=== PATIENT | female | born 1970 | race Caucasian/White ===

== ENCOUNTER → 2019-12-20 11:36 | Outpatient (REF) | payer OTHER, SELFPAY | LOC: HO.SL 11:36 | PROVIDERS: Visit Provider Hospitalist | DX: G47.33 Obstructive sleep apnea (adult) (pediatric) (principal) | CPT/HCPCS: 95806 ==

== ENCOUNTER → 2020-01-06 10:00 | Outpatient (BNVA) | payer OTHER, SELFPAY | PROVIDERS: PCP Student in an Organized Health Care Education/Training Program; Visit Provider Hospitalist | DX: Z23 Encounter for immunization (principal); J45.909 Unspecified asthma, uncomplicated; R05 Cough; G47.33 Obstructive sleep apnea (adult) (pediatric); G47.00 Insomnia, unspecified; Z79.51 Long term (current) use of inhaled steroids; Z79.82 Long term (current) use of aspirin; Z79.899 Other long term (current) drug therapy | CPT/HCPCS: 90471; 90686; 99214 ==

== ENCOUNTER → 2020-04-09 10:19 | Outpatient (BNVA) | payer OTHER, SELFPAY | PROVIDERS: PCP Student in an Organized Health Care Education/Training Program; Visit Provider Hospitalist ==

== ENCOUNTER 2020-07-09 09:25 | Outpatient (REF) | payer OTHER, SELFPAY ==
[2020-07-09 11:52] LABS: MANUAL DIFF FLAG NO
[2020-07-09 12:06] LABS: Basophils Percent Auto 0.5 % (0-2); Eosinophils Absolute Auto 0.2 X10*3/uL (0.0-0.4); Eosinophils Percent Auto 4.3 % (0-4); Hematocrit 39.4 % (37-47); Hemoglobin 11.8 g/dl (12.0-16.0); Imm Gran Abs Auto 0.03 X10*3/uL (0.00-0.03); Imm Gran Pct Auto 0.5 % (0.0-0.4); Lymphocytes Percent Auto 36.1 % (20-40); Mean Corpuscular HGB Conc 29.9 g/dl (31.0-35.0); Mean Corpuscular Hemoglobin 23.6 pg (27.0-33.0); Mean Corpuscular Volume 78.6 fL (80-98); Mean Platelet Volume 9.4 fL (9.4-12.3); Monocytes Absolute Auto 0.4 X10*3/uL (0.1-1.2); Monocytes Percent Auto 6.4 % (2-11); Neutrophils Absolute Auto 2.9 X10*3/uL (2.0-8.3); Neutrophils Percent Auto 52.2 % (45-73); Platelet Count 306 X10*3/uL (160-400); Red Blood Count 5.01 X10*6/uL (4.20-5.50); Red Cell Distribution Width 15.2 % (11.0-16.0); White Blood Count 5.6 X10*3/uL (4.8-10.8)
[2020-07-09 12:16] LABS: D Dimer 442 NG/ML
[2020-07-09 12:33] LABS: Anion Gap 12 (12-20); Blood Urea Nitrogen 16 mg/dL (9-16); Calcium 9.7 mg/dL (8.4-10.2); Carbon Dioxide 31 mmol/L (22-29); Chloride 101 mmol/L (96-108); Estimated Glomerular Filt Rate > 60; Glucose Random 85 mg/dL (60-115); Potassium 4.4 mmol/L (3.3-5.1); Sodium 140 mmol/L (135-145)
[2020-07-09 12:39] LABS: Troponin-I High Sensitivity < 3.5 ng/L (<3.5-17.0)
[2020-07-09 13:17] LABS: Erythrocyte Sedimentation Rate 36 MM/HR (0-20)
== END 2020-07-09 09:26 | disposition home or self-care (01) ==
LOC: HO.LAB 09:25
PROVIDERS: PCP Student in an Organized Health Care Education/Training Program; Visit Provider Hospitalist
DX: R07.9 Chest pain, unspecified (principal); R07.81 Pleurodynia; J45.40 Moderate persistent asthma, uncomplicated; R05 Cough; F51.01 Primary insomnia
CPT/HCPCS: 36415; 80048; 84484; 85025; 85379; 85652; 99212

== ENCOUNTER 2020-07-10 15:54 | Outpatient (REF) | payer OTHER, SELFPAY ==
--- NOTE | ~2020-07-10 | CT_ITS ---
EXAMINATION: CT ANGIOGRAM OF THE CHEST WITH AND WITHOUT CONTRAST (CT PULMONARY ANGIOGRAM FOR PE) CLINICAL INFORMATION: Reason for Exam R07.9 - Chest pain, unspecified COMPARISON: Chest x-ray January 2019 TECHNIQUE: Prior to contrast administration, noncontrast localization images were obtained. Subsequently, multidetector volumetric imaging was performed from the thoracic inlet to below the diaphragms following the administration of 71 mL Omnipaque 350 intravenous contrast. No contrast reaction reported Sagittal, coronal, and MIP oblique sagittal reformatted images were obtained on the CT workstation, uploaded to PACS, and reviewed. This CT examination was performed using dose optimization techniques as appropriate, variously including the following: *Automated exposure control *Adjustment of mA and/or kV according to patient size (this includes techniques or standardized protocols for targeted exams where dose is matched to indication/reason for exam; i.e. extremities or head) *Use of iterative reconstruction technique Total exam dose-length product 123 mGy-cm FINDINGS: QUALITY OF STUDY/CONTRAST BOLUS: Satisfactory. PULMONARY ARTERIES: No central or segmental pulmonary emboli. THORACIC AORTA: No aneurysm or dissection. LUNG: There is question of a 3 mm left lower lobe nodule axial image 283 series 6. The lungs are otherwise clear. PLEURA: No pleural effusion or pneumothorax. MEDIASTINUM: The heart is slightly enlarged. There is no pericardial effusion. No evidence of septal bowing or right heart strain. There are no enlarged hilar or mediastinal lymph nodes. There is a esophageal hernia. There are postsurgical changes to the stomach question from gastric sleeve. CHEST WALL/AXILLA: No axillary or internal mammary lymphadenopathy. OSSEOUS STRUCTURES: There are degenerative changes of the spine. No acute or suspicious osseous abnormality. UPPER ABDOMEN: Esophageal hernia or postoperative changes to the stomach/question gastric sleeve. No reflux of contrast into the hepatic veins to suggest elevated right heart pressures. CT/CT angio chest PE protocol IMPRESSION: No evidence of pulmonary embolism. Slightly enlarged heart. Small esophageal hernia and postoperative changes from probable gastric sleeve. VTE: negative
[2020-07-10] MEDS: iohexoL 350 MG/ML 100 ML INFUS..BTL IV (16:25)
== END 2020-07-10 15:55 | disposition home or self-care (01) ==
LOC: HO.CT 15:54
PROVIDERS: Visit Provider Hospitalist
DX: R07.9 Chest pain, unspecified (principal); R07.81 Pleurodynia; R78.89 Finding of other specified substances, not normally found in blood
CPT/HCPCS: 71275; Q9967

== ENCOUNTER → 2020-11-20 10:05 | Outpatient (BNVA) | payer OTHER, SELFPAY | PROVIDERS: Visit Provider Hospitalist | DX: J44.9 Chronic obstructive pulmonary disease, unspecified (principal); K44.9 Diaphragmatic hernia without obstruction or gangrene; M79.89 Other specified soft tissue disorders; R05 Cough | CPT/HCPCS: 99212 ==

== ENCOUNTER → 2021-01-17 09:52 | Outpatient (BNVA) | payer OTHER, SELFPAY | PROVIDERS: Visit Provider Hospitalist | DX: J44.9 Chronic obstructive pulmonary disease, unspecified (principal); G47.33 Obstructive sleep apnea (adult) (pediatric); K44.9 Diaphragmatic hernia without obstruction or gangrene; M79.89 Other specified soft tissue disorders; F51.01 Primary insomnia; I83.90 Asymptomatic varicose veins of unspecified lower extremity | CPT/HCPCS: 90686; 99212 ==

== ENCOUNTER → 2021-03-11 09:09 | Outpatient (REF) | payer OTHER, SELFPAY ==
--- NOTE | ~2021-03-11 | NM_ITS ---
Myocardial perfusion study Indication: Shortness of breath evaluate for myocardial ischemia Technique: The patient was brought in for a Lexiscan perfusion study on 03/11/2021. Patient performed low-level exercise and was injected 0.4 mg of Lexiscan intravenously. Within a minute of injection, 30 mCi of sestamibi was given intravenously. Images were obtained using the SPECT gamma camera interlaced with the gating device. Images were obtained in supine position. Resting perfusion study was performed on 03/12/2021. Patient was administered 30 mCi of sestamibi intravenously at rest. Images were then obtained in supine position. Images obtained with and without CT attenuation. Total DLP 138 mGy-cm. Images were processed with the software and compared side to side in short axis, horizontal long axis and vertical long axis views. Findings: The stress perfusion study showed non attenuated images show normal uptake of radiotracer in all segments of LV myocardium. Attenuation corrected images show mildly reduced uptake in the anterior wall of the LV myocardium.. The gated study shows normal LV systolic function with calculated LVEF of 67%. LV cavity is normal in size. The gated study shows normal systolic wall thickening and contraction of segments. Resting study shows no significant change compared to stress perfusion study. Gating at rest reveals normal systolic wall motion with ejection fraction at greater than 70 %. The findings are consistent with normal myocardial perfusion. NM/NM ange perf SPECT rest & str Impression: 1. Myocardial perfusion imaging study shows normal myocardial perfusion 2. Gated LVEF is 67% 3. Transient ischemic dilatation not present EKG is nondiagnostic for ischemia
--- NOTE | 2021-03-11 09:13 | CA_ITS ---
Acquisition Time: 2021-03-11 09:16:28 Total Exercise Time: 00:02:00 Test Indications: Dyspnea Medications: SEE H Protocol: LEXISCAN Max HR: 122 BPM 72% of Pred: 169 BPM Max BP: 110/078 mmHG Max Work Load: 1.0 METS Pharmacological stress test with Lexiscan injection, while sitting and kicking her legs, without anginal symptoms, with isolated PVC, with normotensive response to injection, with nondiagnostic EKG for ischemia. Nuclear images pending. test reviewed with Dr Bray. Referred By: Sheldon Lao Overread By: FABRICE VALLE
== END ==
LOC: HO.CARD 09:09
PROVIDERS: Visit Provider Physician Assistant Medical
DX: R06.02 Shortness of breath (principal)
CPT/HCPCS: 78452; 93017; A9500; J0280; J2785

== ENCOUNTER 2021-07-19 09:29 | Outpatient (REF) | payer OTHER, SELFPAY ==
--- NOTE | 2021-07-19 13:17 | MHC.AU.ANR ---
Adult Audiological Evaluation Date of Visit: 07/19/21 Negative Stripper Used: Surinamese- By Phone Reason for Appointment: Audiological evaluation to determine if there has been a change in hearing. Ms. Howard has a known bilateral, sensorineural hearing loss. She has previously used hearing aids in both ears, but recently lost them. She would like to pursue new hearing aids. She notes that she's been having difficulty following conversations without her hearing aids. She denies any changes to her medical history since her last visit. Does patient feel they have a hearing loss?: Yes Has hearing been tested previously?: Yes Previous Hearing Test Results: [facility], 07/22/2018- Moderate to moderately-severe/severe sensorineural hearing loss bilaterally. Medical History: Medical History: Not provided Medication List: Not provided Otoscopy: Right Ear: Unremarkable Left Ear: Unremarkable Tympanometry: Tympanometry performed due to: To assess integrity of the middle ear system Right Ear: Normal Middle Ear System (Type A) Left Ear: Normal Middle Ear System (Type A) Hearing Evaluation: Transducer(s) Used: Insert Earphones, Bone Conduction Method: Conventional Audiometry Stimuli Used: Pure Tones Right Ear: Description of Hearing: Moderate to moderately-severe sensorineural hearing loss from 250-8000 Hz. Left Ear: Description of Hearing: Moderate to moderately-severe sensorineural hearing loss from 250-8000 Hz. Speech Recognition Threshold (SRT): Method Used: Monitored Live Voice Stimuli Used: Spondee Words Right Ear: 50 dBHL Left Ear: 55 dBHL Word Discrimination: Method: Recorded Lists Word Lists Used: Lista Bisil?bica (Surinamese) Right Ear: 92% at 80 dBHL Left Ear: 92% at 80 dBHL Comparison: Compared to the most recent evaluation: Hearing is stable. Recommendations: Audiological re-evaluation in one year. Discussed current aid options. She is interested in rechargeable CHERYL style hearing aids. Medical clearance for hearing aid use and prior authorization from her insurance will be requested. Once approved, hearing aids will be ordered. Diagnosis: Primary Diagnosis: H90.3 Bilateral Sensorineural Hearing Loss Services Performed: Services Performed: Comprehensive Audiological Evaluation (CPT 92270) Tympanometry (CPT 59700) Signature: Provider: Tushar Valadez, CCC-A
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
--- NOTE | 2021-07-26 13:20 | MHC.AU.MED ---
Medical Clearance for Hearing Instrumentation Date: 07/26/21 Patient Name: Anahi Howard Date of : 1970 Referring Provider: Keily Lopez MD We have seen your patient on 07/19/21 and have determined that they are a candidate for amplification (See accompanying report). Specifically, they would benefit from: Hearing aid use in both ears There is a statute that addresses Medical Evaluation Requirements prior to fitting a patient with a hearing aid. According to [place] statute [facility] CMR:6.03(1), (a) General. Except as provided in 265 CMR 6.03(1)(b), a hearing impaired itinerant teacher shall not sell a hearing aid unless the prospective user has presented to the hearing impaired itinerant teacher a written statement signed by a licensed physician that states that the patient's hearing loss has been medically evaluated and the patient may be considered a candidate for a hearing aid. The medical evaluation must have taken place within the preceding six months. Please note: Due to the [place] Statute referenced above, we cannot accept a signature other than that of a licensed physician. CONDITIONING YARD SUPERVISOR and PA signatures cannot be accepted. I am in agreement with the above recommendation. There is no medical contraindication for hearing instrumentation. Physician Signature Date Physician Name (Printed)
== END 2021-07-19 09:30 | disposition home or self-care (01) ==
LOC: HO.SH 09:29
PROVIDERS: Visit Provider Internal Medicine
DX: H90.3 Sensorineural hearing loss, bilateral (principal)
CPT/HCPCS: 92557; 92567; 92591

== ENCOUNTER → 2021-08-09 10:12 | Outpatient (BNVA) | payer OTHER, SELFPAY | PROVIDERS: Visit Provider Hospitalist | DX: J44.9 Chronic obstructive pulmonary disease, unspecified (principal); R05.9 Cough, unspecified; K44.9 Diaphragmatic hernia without obstruction or gangrene; M79.89 Other specified soft tissue disorders; I83.90 Asymptomatic varicose veins of unspecified lower extremity; G47.33 Obstructive sleep apnea (adult) (pediatric); F51.01 Primary insomnia | CPT/HCPCS: 99212 ==

== ENCOUNTER → 2021-09-03 09:42 | Outpatient (REF) | payer OTHER, SELFPAY | LOC: HO.SL 09:42 | PROVIDERS: Visit Provider Hospitalist | DX: G47.33 Obstructive sleep apnea (adult) (pediatric) (principal); R06.83 Snoring | CPT/HCPCS: 95806 ==

== ENCOUNTER 2021-10-04 11:53 | Outpatient (REF) | payer OTHER, SELFPAY ==
--- NOTE | 2021-10-09 15:35 | MHC.AU.HFA ---
Hearing Instrument Fitting- Adult- Binaural Date of Visit: 10/04/21 Stencil Maker Used: Vietnamese- In Person Hearing Instruments Dispensed: Right Ear: Electrical Laboratory Technician: Phonak Model: Audeo P70-R Serial Number: [id number] Repair Warranty: 12/09/2024 Loss and Damage Warranty: 12/09/2024 Battery Size: Rechargeable Color: P3- [place]wood Pad Cutter: Size 1 M Type of Dome: Small power Type of Wax Guard: CeruShield Left Ear: Electrical Laboratory Technician: Phonak Model: Audeo P70-R Serial Number: [id number] Repair Warranty: 12/09/2024 Loss and Damage Warranty: 12/09/2024 Battery Size: Rechargeable Color: P3- [place] Pad Cutter: Size 1 M Type of Dome: Small power Type of Wax Guard: CeruShield Summary of Fitting: Feedback craps manager run. Verifit performed and levels adjusted to better reach targets. Patient was pleased with the sound of the hearing aids. Hearing aid care and maintenance were discussed and practiced. Recommendations: Patient is an experienced hearing aid user. Patient will call for hearing aid follow-up if needed. Diagnosis Code(s): Primary Diagnosis: H90.3 Bilateral Sensorineural Hearing Loss Signature: Provider: Tushar Ruiz, ARBEN-A
== END 2021-10-04 11:54 | disposition home or self-care (01) ==
LOC: HO.HAP 11:53
PROVIDERS: PCP Internal Medicine; Visit Provider Internal Medicine
DX: Z46.1 Encounter for fitting and adjustment of hearing aid (principal); H90.3 Sensorineural hearing loss, bilateral
CPT/HCPCS: V5011; V5020; V5160; V5261

== ENCOUNTER 2021-11-15 10:33 | Outpatient (REF) | payer OTHER, SELFPAY ==
[2021-11-15 10:44] LABS: MANUAL DIFF FLAG NO
[2021-11-15 10:58] LABS: Basophils Absolute Auto 0.1 X10*3/uL (0.0-0.2); Basophils Percent Auto 0.5 % (0-2); Eosinophils Absolute Auto 0.5 X10*3/uL (0.0-0.4); Eosinophils Percent Auto 5.1 % (0-4); Hematocrit 39.8 % (37.0-47.0); Hemoglobin 11.9 g/dl (12.0-16.0); Imm Gran Abs Auto 0.15 X10*3/uL (0.00-0.03); Imm Gran Pct Auto 1.6 % (0.0-0.4); Lymphocytes Absolute Auto 3.5 X10*3/uL (1.2-4.9); Lymphocytes Percent Auto 37.2 % (20-40); Mean Corpuscular HGB Conc 29.9 g/dl (31.0-35.0); Mean Corpuscular Hemoglobin 22.5 pg (27.0-33.0); Mean Corpuscular Volume 75.2 fL (80.0-98.0); Monocytes Absolute Auto 0.8 X10*3/uL (0.1-1.2); Monocytes Percent Auto 8.2 % (2-11); Neutrophils Absolute Auto 4.5 x10*3/uL (2.0-8.3); Neutrophils Percent Auto 47.4 % (45-73); Platelet Count 427 X10*3/uL (160-400); Red Blood Count 5.29 X10*6/uL (4.20-5.50); White Blood Count 9.5 X10*3/uL (4.8-10.8)
[2021-11-15 11:28] LABS: Anion Gap 18 (12-20); Blood Urea Nitrogen 10 mg/dL (9-16); Calcium 9.7 mg/dL (8.4-10.2); Carbon Dioxide 28 mmol/L (22-29); Chloride 101 mmol/L (96-108); Estimated Glomerular Filt Rate > 60; Glucose Random 94 mg/dL (60-115); Iron 39 mcg/dL (30-160); Percent Iron Saturation 10 % (15-50); Potassium 4.2 mmol/L (3.3-5.1); Sodium 143 mmol/L (135-145); Total Iron Binding Capacity 402 mcg/dL (228-428); Unsaturated Iron Binding 363 ug/dL
[2021-11-15 11:49] LABS: Erythrocyte Sedimentation Rate 51 MM/HR (0-20)
[2021-11-15 11:50] LABS: Ferritin 104 ng/mL (10-250)
[2021-11-20 21:47] LABS: Immunoglobulin E 149 kU/L (<OR=114)
== END 2021-11-15 10:34 | disposition home or self-care (01) ==
LOC: HO.LAB 10:33
PROVIDERS: Visit Provider Hospitalist
DX: J44.9 Chronic obstructive pulmonary disease, unspecified (principal); R06.00 Dyspnea, unspecified; R05.9 Cough, unspecified; G47.33 Obstructive sleep apnea (adult) (pediatric); K44.9 Diaphragmatic hernia without obstruction or gangrene; I83.90 Asymptomatic varicose veins of unspecified lower extremity; F51.01 Primary insomnia
CPT/HCPCS: 36415; 80048; 82728; 82785; 83540; 85025; 85652; 99212

== ENCOUNTER → 2022-02-18 09:31 | Outpatient (BNVA) | payer OTHER, SELFPAY | PROVIDERS: PCP Internal Medicine; Visit Provider Hospitalist | DX: Z23 Encounter for immunization (principal); R06.00 Dyspnea, unspecified; G47.33 Obstructive sleep apnea (adult) (pediatric); J45.40 Moderate persistent asthma, uncomplicated; R05.9 Cough, unspecified; K44.9 Diaphragmatic hernia without obstruction or gangrene; I83.90 Asymptomatic varicose veins of unspecified lower extremity; F51.01 Primary insomnia | CPT/HCPCS: 90471; 90686; 99212 ==

== ENCOUNTER → 2022-03-06 10:03 | Outpatient (REF) | payer OTHER, SELFPAY | LOC: HO.SL 10:03 | PROVIDERS: Visit Provider Hospitalist | DX: G47.33 Obstructive sleep apnea (adult) (pediatric) (principal) | CPT/HCPCS: 95806 ==

== ENCOUNTER → 2022-05-16 09:45 | Outpatient (BNVA) | payer OTHER, SELFPAY | PROVIDERS: PCP Internal Medicine; Visit Provider Hospitalist | DX: J45.40 Moderate persistent asthma, uncomplicated (principal); J44.9 Chronic obstructive pulmonary disease, unspecified; R05.3 Chronic cough; R06.00 Dyspnea, unspecified; G47.33 Obstructive sleep apnea (adult) (pediatric); F51.01 Primary insomnia; Z23 Encounter for immunization | CPT/HCPCS: 99212 ==

== ENCOUNTER 2022-09-22 13:58 | Outpatient (REF) | payer OTHER, SELFPAY ==
[2022-09-22 15:03] LABS: MANUAL DIFF FLAG NO
[2022-09-22 15:23] LABS: Basophils Percent Auto 0.4 % (0-2); Eosinophils Absolute Auto 0.1 X10*3/uL (0.0-0.4); Eosinophils Percent Auto 1.3 % (0-4); Hematocrit 41.8 % (37.0-47.0); Hemoglobin 12.6 g/dl (12.0-16.0); Imm Gran Abs Auto 0.03 X10*3/uL (0.00-0.03); Imm Gran Pct Auto 0.4 % (0.0-0.4); Lymphocytes Absolute Auto 2.5 X10*3/uL (1.2-4.9); Lymphocytes Percent Auto 33.6 % (20-40); Mean Corpuscular HGB Conc 30.1 g/dl (31.0-35.0); Mean Corpuscular Hemoglobin 23.4 pg (27.0-33.0); Mean Corpuscular Volume 77.6 fL (80.0-98.0); Mean Platelet Volume 9.4 fL (9.4-12.3); Monocytes Absolute Auto 0.4 X10*3/uL (0.1-1.2); Monocytes Percent Auto 5.4 % (2-11); Neutrophils Absolute Auto 4.4 x10*3/uL (2.0-8.3); Neutrophils Percent Auto 58.9 % (45-73); Platelet Count 371 X10*3/uL (160-400); Red Blood Count 5.39 X10*6/uL (4.20-5.50); Red Cell Distribution Width 14.9 % (11.0-16.0); White Blood Count 7.4 X10*3/uL (4.8-10.8)
[2022-09-22 16:00] LABS: Erythrocyte Sedimentation Rate 28 MM/HR (0-20)
[2022-10-03 04:19] LABS: Immunoglobulin E 49 kU/L (<OR=114)
== END 2022-09-22 13:59 | disposition home or self-care (01) ==
LOC: HO.LAB 13:58
PROVIDERS: PCP Internal Medicine; Visit Provider Hospitalist
DX: J45.40 Moderate persistent asthma, uncomplicated (principal); R06.00 Dyspnea, unspecified; G47.33 Obstructive sleep apnea (adult) (pediatric); R05.9 Cough, unspecified; K44.9 Diaphragmatic hernia without obstruction or gangrene; I83.90 Asymptomatic varicose veins of unspecified lower extremity; F51.01 Primary insomnia
CPT/HCPCS: 36415; 82785; 85025; 85652; 86003; 94618; 99212

== ENCOUNTER 2022-09-22 13:58 | Outpatient (AMB) | payer OTHER, SELFPAY ==
[2022-09-22 14:05] VITALS: PULSE 82; O2SAT 98; BMI 34.3
--- NOTE | 2022-09-22 14:05 | MHC.OFFVIS ---
Intake Vital Signs 09/22/22 14:05 Height 5 ft 4 in Weight 200 lb BMI 34.3 Pulse 82 Pulse Source Pulse Oximeter Pulse Oximetry (%) 98 Oxygen Delivery Method Room Air Intake Visit Reasons: Cough Registered Nurse Renal Required: No Allergies alosetron [Lotronex] Allergy (Mild, Verified 09/22/22 14:07) Headache and difficulty breathing Sulfa Drugs Allergy (Mild, Uncoded 09/22/22 14:07) Headache and difficulty breathing HPI HPI Comments History of Present Illness Details The patient is a 52 y/o woman with a history of asthma in addition to obstructive sleep apnea. Her asthma had been stable for several years period, but, more recently started to worsen. She has been having to use her inhalers now regularly and also has been using her short-acting beta agonist between 4 and 6 times a day. The only new exposures that she does have cockroaches in her apartment. She says she has multiple them. Her been trying to get rid of them with sprays. She has been having more wheezing. At this point she does have wheezing on examination and 11/20/2020 the patient is here for a pulmonary follow-up visit. The patient is a 50-year-old woman with a known history of asthma COPD overlap syndrome. Since we last spoke the patient has been having increasing cough. The cough is dry in nature. Moderate severity. She has also noticed increased shortness of breath. She did follow-up with theatre program director and she is scheduled to undergo a stress test. In the meantime she is also healing from a left wrist surgery. He is also still struggling with her dyspnea. I did review her CT scan of the chest that she had back in June 2020 PE protocol. No evidence of any pulmonary emboli and no evidence of any interstitial lung disease or pulmonary nodules. The patient does have a hiatal hernia and does have a history of gastric sleeve or bariatric surgery. 01/17/2021 the patient is here for a pulmonary follow-up visit. She still complains of daytime drowsiness. She feels short of breath. The patient has been using her inhalers as prescribed. She did take the Lasix with good results she did feel better and her breathing was better. Her lower extremity edema has improved. She still complaining of significant pain due to varicose veins. She is going to looking to getting a referral to a specialist for that. The patient also had the overnight oximetry that we reviewed demonstrating no evidence of any hypoxia. However, the patient complains that she was awake the whole night was going up to the bathroom all night therefore was not a proper study. Therefore I will give her a sleep aid and will repeat it there overnight oximetry at some point. 11/15/2021 the patient is here for pulmonary follow-up visit. Since we last spoke she complains of worsening dyspnea on exertion and fatigue. Moderate severity. However, she is recently status post surgery. This was at [facility]. No apparent complications. She has not seen any drainage or bleeding from the site. Her p.o. intake is decreased. She is complaining of shortness breath dyspnea with minimal activity. Therefore will have her get some blood work including a hemoglobin to make sure that she is not anemic view of her recent surgery. In the meantime she continues to have significant daytime drowsiness. Her Middlebury score continues to be elevated . She is struggling without her CPAP. Again, will request a sleep study in order to get reacquainted with CPAP therapy. In the meantime she continues with the current respiratory therapy. 02/18/2022 the patient is here for a pulmonary follow-up visit. She is recovering from surgery. She has had issues with her bladder and recently had a pacemaker for urinary incontinence. Seems to be working as recommended. From now small standpoint she still struggling with her allergies. She has been on her respiratory therapy with good adherence. She still having significant allergies and is taking multiple doses of allergy medications the day. Still with no avail. She feels that allergies a come from her apartment. We did order blood work including a CBC with differential demonstrating significant eosinophilia. Her IgE was also elevated consistent with significant allergies. Based on the fact that she is on maximum respiratory therapy in continues to need rescue medicine and prednisone will go ahead and start her on biologic therapy. I do believe Dupixent will be a good option for her. in addition to that she still continues to suffer from significant daytime drowsiness. Her last sleep study was back in August 2021 and the patient had a hard time sleeping because of pain and therefore not an accurate result. During the study her AHI was low. Patient continues to have significant daytime drowsiness with an elevated Middlebury score of 03/08. Will request an additional study. Will be hard for her to do an in-lab study. Will try to do another home sleep study. 05/16/2022 the patient is here for a pulmonary follow-up visit. She is doing well. She recovered from surgery well. Now she may be going for additional surgeries. The patient did start the Dupixent injections. She is doing that every 2 weeks. He has appear to be very affecting beneficial as her asthma has improved. She continues use her respiratory inhalers. I also encouraged her to continue using her allergy medicine as Dupixent will not be blocking all the allergic pathways. The patient has a still having difficulty with her sleep. She continues to have daytime drowsiness. And she does wake up short of breath. The patient does need to have a sleep study. Although now she is going to have surgery so therefore will hold off until she recovers from her 2nd surgery in order to have another sleep study ordered. Therefore, she will follow-up in 4 months and we can re-evaluate for the possibility of sleep study at that time 09/22/2022 the patient is here for a pulmonary follow-up visit. The patient is no better. She does not feel like Dupixent is helping her. She would like to stop at this time. Will go ahead and request a discontinuation at this time. She does continue to use her respiratory medications. She feels like a lot of her triggers have to do with her current home environment where she is exposed to pests in addition to mold. She was open to get a letter from me regarding her worsening symptoms in view of her environment. I did recommend we do allergy testing to see if she has any of those allergies in the she does then we can provide with objective data about her allergic reactions. The patient also had a sleep study demonstrating no evidence of sleep apnea. She was also not hypoxic with the lowest pulse ox noted to be 90%. She is wondering about oxygen with activity. We did briefly take her for a walking oximetry and the patient maintain a pulse ox of 98%. Explained to the patient that she does not qualify for oxygen. She does describe symptoms of dizziness and vertigo. I did reassure her that her symptoms of dizziness and vertigo and not related to any underlying hypoxia. [facility] Medical History (Updated 09/22/22 @ 23:28 by Kain Gutierres MD) Asthma Asthma-COPD overlap syndrome Chest pain Chronic cough Cough Dyspnea Hiatal hernia Insomnia Limb swelling DEBORAH (obstructive sleep apnea) Pleuritic chest pain Varicose vein of leg Social History (Updated 11/20/20 @ 10:17 by FATOUMATA Vogel) Patient Tobacco Use Status: Never used Tobacco Review of Systems Const Reports body aches, Reports daytime sleepiness, Reports difficulty sleeping, Reports lethargy, Denies night sweats, Reports snoring and Reports weight gain ENT Denies change in voice, Reports vertigo, Reports dizziness, Denies lip swelling, Denies mouth pain, Reports nasal congestion, Reports nasal discharge and Denies tongue swelling Card Reports chest pain, Reports dyspnea and Reports dyspnea on exertion Resp Reports cough, Denies hemoptysis, Denies excessive phlegm production, Reports pain on inspiration, Reports dyspnea, Reports dyspnea on exertion, Reports snoring and Reports wheezing GI Reports as per HPI and Reports abdominal pain Musc Reports abnormal gait, Reports myalgias and Reports arthralgias Neuro Denies Neuro-related abnormal movements, Reports abnormal gait, Reports vertigo and Reports dizziness Psych Denies no additional complaints Michael/Lymph Denies easy bleeding and Denies lymphadenopathy Aller/Immun Denies lip swelling, Denies tongue swelling and Reports wheezing Physical Exam Vital Signs: Last Vital Signs Pulse 82 09/22/22 14:05 Pulse Ox 98 09/22/22 14:05 Oxygen Delivery Method Room Air 09/22/22 14:05 BMI result Body Mass Index 34.3 Const General: alert Neck Neck: Yes normal visual inspection, Yes full ROM and Yes no lymphadenopathy Chest Chest palpation & inspection: normal inspection of the chest Resp Auscultation: diminished lung sounds Cardio Rate: regular rate Rhythm: regular rhythm Heart sounds: S1 normal heart sound present and S2 normal heart sound present GI Inspection: Yes other ( Dressings are clean, dry and intact) Auscultation: normal bowel sounds Skin General skin exam: rashes and/or lesions noted Extrem General: No clubbing, No cyanosis and Yes edema Office Procedures 6 Minute Walk Time:: 14:30 SPO2 % at rest: 99 Pulse at rest: 79 SPO2 % during excercise: 93 Pulse during excercise: 96 SPO2 % after excercise: 100 Pulse after excercise: 80 Distance in yards walked: 75 Lalit Score: 0 Performance Observations:: Patient walked with the use of a cane on flat ground without the use of supplemental O2. [id number] - 6 Minute Walk Assessment & Plan Assessment & Plan (1) Asthma: Code(s): J45.909 - Unspecified asthma, uncomplicated Qualifiers: Asthma complication type: uncomplicated Asthma persistence: persistent Asthma severity: moderate Qualified Code(s): J45.40 - Moderate persistent asthma, uncomplicated (2) Chronic cough: Code(s): R05 - Cough (3) Hiatal hernia: Comment: s/p hernia repair Code(s): K44.9 - Diaphragmatic hernia without obstruction or gangrene (4) Varicose vein of leg: Code(s): I83.90 - Asymptomatic varicose veins of unspecified lower extremity (5) DEBORAH (obstructive sleep apnea): Comment: Still symptomatic. EPWORTH is 03/08. Home PSG w/o DEBORAH Code(s): G47.33 - Obstructive sleep apnea (adult) (pediatric) (6) Insomnia: Code(s): G47.00 - Insomnia, unspecified Qualifiers: Insomnia type: primary Qualified Code(s): F51.01 - Primary insomnia (7) Dyspnea: Code(s): R06.00 - Dyspnea, unspecified Plan Ambien for sleep Continue Dulera two hundred two puffs twice a day Continue Spiriva Continue singular continue anti histanines stop Dupixent (not helpful after 3-4 months) Allergy testing Reflux diet Follow-up in 3 months Orders: Orders Rast Allergen Today J45.909 - Unspecified asthma, uncomplicated Complete Blood Count Auto Diff Today J45.909 - Unspecified asthma, uncomplicated Erythrocyte Sedimentation Rate Today J45.909 - Unspecified asthma, uncomplicated Immunoglobulin E Today J45.909 - Unspecified asthma, uncomplicated AMB 6 minute walk Today J44.9 - Chronic obstructive pulmonary disease, unspecified Coding Level of Care Code Est Pt Level 4 (41864) Diagnoses Asthma J45.40 Asthma complication type: uncomplicated Asthma persistence: persistent Asthma severity: moderate Chronic cough R05 Hiatal hernia K44.9 Varicose vein of leg I83.90 DEBORAH (obstructive sleep apnea) G47.33 Insomnia F51.01 Insomnia type: primary Dyspnea R06.00 CPT Codes Coding ([id number]) Time Spent (min) 19
[2022-09-22 14:46] VITALS: PULSE 79; O2SAT 99
== END 2022-09-22 14:51 | disposition home or self-care (01) ==
PROVIDERS: PCP Internal Medicine; Visit Provider Hospitalist
DX: J45.40 Moderate persistent asthma, uncomplicated (principal); R05.9 Cough, unspecified; K44.9 Diaphragmatic hernia without obstruction or gangrene; I83.90 Asymptomatic varicose veins of unspecified lower extremity; G47.33 Obstructive sleep apnea (adult) (pediatric); F51.01 Primary insomnia; R06.00 Dyspnea, unspecified
CPT/HCPCS: 94618; 99214

== ENCOUNTER 2023-03-18 09:49 | Outpatient (AMB) | payer OTHER, SELFPAY ==
[2023-03-18 10:00] VITALS: PULSE 87; O2SAT 100; BMI 35.7
--- NOTE | 2023-03-18 10:00 | MHC.OFFVIS ---
Intake Vital Signs 03/18/23 10:00 Height 5 ft 4 in Weight 208 lb BMI 35.7 Pulse 87 Pulse Source Pulse Oximeter Pulse Oximetry (%) 100 Oxygen Delivery Method Room Air Intake Visit Reasons: cough Angio Technologist Required: No Allergies alosetron [Lotronex] Allergy (Mild, Verified 03/18/23 10:01) Headache and difficulty breathing Sulfa Drugs Allergy (Mild, Uncoded 03/18/23 10:01) Headache and difficulty breathing HPI HPI Comments History of Present Illness Details The patient is a 52 y/o woman with a history of asthma in addition to obstructive sleep apnea. Her asthma had been stable for several years period, but, more recently started to worsen. She has been having to use her inhalers now regularly and also has been using her short-acting beta agonist between 4 and 6 times a day. The only new exposures that she does have cockroaches in her apartment. She says she has multiple them. Her been trying to get rid of them with sprays. She has been having more wheezing. At this point she does have wheezing on examination and 11/20/2020 the patient is here for a pulmonary follow-up visit. The patient is a 50-year-old woman with a known history of asthma COPD overlap syndrome. Since we last spoke the patient has been having increasing cough. The cough is dry in nature. Moderate severity. She has also noticed increased shortness of breath. She did follow-up with campaign director and she is scheduled to undergo a stress test. In the meantime she is also healing from a left wrist surgery. He is also still struggling with her dyspnea. I did review her CT scan of the chest that she had back in June 2020 PE protocol. No evidence of any pulmonary emboli and no evidence of any interstitial lung disease or pulmonary nodules. The patient does have a hiatal hernia and does have a history of gastric sleeve or bariatric surgery. 09/22/2022 the patient is here for a pulmonary follow-up visit. The patient is no better. She does not feel like Dupixent is helping her. She would like to stop at this time. Will go ahead and request a discontinuation at this time. She does continue to use her respiratory medications. She feels like a lot of her triggers have to do with her current home environment where she is exposed to pests in addition to mold. She was open to get a letter from me regarding her worsening symptoms in view of her environment. I did recommend we do allergy testing to see if she has any of those allergies in the she does then we can provide with objective data about her allergic reactions. The patient also had a sleep study demonstrating no evidence of sleep apnea. She was also not hypoxic with the lowest pulse ox noted to be 90%. She is wondering about oxygen with activity. We did briefly take her for a walking oximetry and the patient maintain a pulse ox of 98%. Explained to the patient that she does not qualify for oxygen. She does describe symptoms of dizziness and vertigo. I did reassure her that her symptoms of dizziness and vertigo and not related to any underlying hypoxia. 03/18/2023 the patient is here for a pulmonary follow-up visit. She was sick a few weeks ago. She still not better. Still complaining of cough shortness of breath. [id number] severity. She did go to the ER but she left after several hours of waiting. She did continue to use her respiratory medicines. Overall she is feeling little better. She still having headaches in the morning. Still feeling daytime drowsiness. Will go ahead and perform an overnight oximetry to assess her nocturnal oxygen. She may benefit from oxygen. She will continue with current respiratory therapy and prescription will be sent to her pharmacy. [facility] Medical History (Updated 03/18/23 @ 10:10 by Kain Gutierres MD) Dyspnea Varicose vein of leg Limb swelling Hiatal hernia Chronic cough Asthma-COPD overlap syndrome Chest pain Pleuritic chest pain Asthma Cough DEBORAH (obstructive sleep apnea) Insomnia Social History (Updated 11/20/20 @ 10:17 by Alessia Hoffman Kelly) Patient Tobacco Use Status: Never used Tobacco Review of Systems Const Reports body aches, Reports daytime sleepiness, Reports difficulty sleeping, Reports headache(s), Reports lethargy, Denies night sweats, Reports snoring and Reports weight gain ENT Denies change in voice, Reports vertigo, Reports dizziness, Reports headache(s), Denies lip swelling, Denies mouth pain, Reports nasal congestion, Reports nasal discharge and Denies tongue swelling Card Reports chest pain, Reports dyspnea and Reports dyspnea on exertion Resp Reports cough, Denies hemoptysis, Denies excessive phlegm production, Reports pain on inspiration, Reports dyspnea, Reports dyspnea on exertion, Reports snoring and Reports wheezing GI Reports as per HPI and Reports abdominal pain Musc Reports abnormal gait, Reports myalgias and Reports arthralgias Neuro Denies Neuro-related abnormal movements, Reports abnormal gait, Reports vertigo, Reports dizziness and Reports headache(s) Psych Denies no additional complaints Michael/Lymph Denies easy bleeding and Denies lymphadenopathy Aller/Immun Denies lip swelling, Denies tongue swelling and Reports wheezing Physical Exam Vital Signs: Last Vital Signs Pulse 87 03/18/23 10:00 Pulse Ox 100 03/18/23 10:00 Oxygen Delivery Method Room Air 03/18/23 10:00 BMI result Body Mass Index 35.7 Const General: alert Neck Neck: Yes normal visual inspection, Yes full ROM and Yes no lymphadenopathy Chest Chest palpation & inspection: normal inspection of the chest Resp Effort & Inspection: normal respiratory effort Auscultation: diminished lung sounds Cardio Rate: regular rate Rhythm: regular rhythm Heart sounds: S1 normal heart sound present and S2 normal heart sound present GI Inspection: Yes other ( Dressings are clean, dry and intact) Auscultation: normal bowel sounds Skin General skin exam: rashes and/or lesions noted Extrem General: No clubbing, No cyanosis and Yes edema Assessment & Plan Assessment & Plan (1) Asthma-COPD overlap syndrome: Code(s): J44.9 - Chronic obstructive pulmonary disease, unspecified (2) Chronic cough: Code(s): R05 - Cough (3) Hiatal hernia: Comment: s/p hernia repair Code(s): K44.9 - Diaphragmatic hernia without obstruction or gangrene (4) Varicose vein of leg: Code(s): I83.90 - Asymptomatic varicose veins of unspecified lower extremity Qualifiers: Laterality: unspecified laterality Varicose vein complication: unspecified Qualified Code(s): I83.90 - Asymptomatic varicose veins of unspecified lower extremity (5) Insomnia: Code(s): G47.00 - Insomnia, unspecified Qualifiers: Insomnia type: primary Qualified Code(s): F51.01 - Primary insomnia (6) Dyspnea: Code(s): R06.00 - Dyspnea, unspecified Qualifiers: Dyspnea type: dyspnea on exertion Qualified Code(s): R06.09 - Other forms of dyspnea Plan Ambien for sleep Continue Dulera two hundred two puffs twice a day Continue Spiriva Continue singular continue anti histanines Reflux diet overnight oximetry Follow-up in 3 months Orders: Orders Overnight Pulse Oximetry Today J44.9 - Chronic obstructive pulmonary disease, unspecified Medications: New doxycycline hyclate 100 mg PO BID 10 days 20 caps 0RF prednisone PO daily; Take 2 tabs daily x 5 days, then 1 tablet daily x 5 days 10 days 15 tabs 0RF Coding Level of Care Code Est Pt Level 4 (18514) Diagnoses Asthma-COPD overlap syndrome J44.9 Chronic cough R05 Hiatal hernia K44.9 Varicose veins of lower extremity, unspecified laterality, unspecified whether complicated I83.90 Laterality: unspecified laterality Varicose vein complication: unspecified Primary insomnia F51.01 Insomnia type: primary Dyspnea on exertion R06.09 Dyspnea type: dyspnea on exertion Time Spent (min) 16
== END 2023-03-18 10:33 | disposition home or self-care (01) ==
PROVIDERS: PCP Internal Medicine; Visit Provider Hospitalist
DX: J44.9 Chronic obstructive pulmonary disease, unspecified (principal); R05.9 Cough, unspecified; K44.9 Diaphragmatic hernia without obstruction or gangrene; I83.90 Asymptomatic varicose veins of unspecified lower extremity; F51.01 Primary insomnia; R06.09 Other forms of dyspnea
CPT/HCPCS: 99214

== ENCOUNTER → 2023-03-18 09:49 | Outpatient (BNVA) | payer OTHER, SELFPAY | PROVIDERS: PCP Internal Medicine; Visit Provider Hospitalist | DX: J44.9 Chronic obstructive pulmonary disease, unspecified (principal); R05.3 Chronic cough; R06.09 Other forms of dyspnea; I83.90 Asymptomatic varicose veins of unspecified lower extremity; F51.01 Primary insomnia; K44.9 Diaphragmatic hernia without obstruction or gangrene | CPT/HCPCS: 99212 ==

== ENCOUNTER 2023-06-17 10:23 | Outpatient (AMB) | payer OTHER, SELFPAY ==
[2023-06-17 10:29] VITALS: PULSE 81; O2SAT 99; BMI 37.4
--- NOTE | 2023-06-17 10:29 | A.OFFVIS_ITS ---
Intake Vital Signs 06/17/23 10:29 Height 5 ft 4 in Weight 218 lb BMI 37.4 Pulse 81 Pulse Source Pulse Oximeter Pulse Oximetry (%) 99 Oxygen Delivery Method Room Air Intake Visit Reasons: Asthma follow-up Fixed Interest Dealer Required: No Allergies alosetron [Lotronex] Allergy (Mild, Verified 06/17/23 10:30) Headache and difficulty breathing Sulfa Drugs Allergy (Mild, Uncoded 06/17/23 10:30) Headache and difficulty breathing HPI HPI Comments History of Present Illness Details The patient is a 52 y/o woman with a history of asthma in addition to obstructive sleep apnea. Her asthma had been stable for several years period, but, more recently started to worsen. She has been having to use her inhalers now regularly and also has been using her short-acting beta agonist between 4 and 6 times a day. The only new exposures that she does have cockroaches in her apartment. She says she has multiple them. Her been trying to get rid of them with sprays. She has been having more wheezing. At this point she does have wheezing on examination and 11/20/2020 the patient is here for a pulmonary follow-up visit. The patient is a 50-year-old woman with a known history of asthma COPD overlap syndrome. Since we last spoke the patient has been having increasing cough. The cough is dry in nature. Moderate severity. She has also noticed increased shortness of breath. She did follow-up with physical biochemist and she is scheduled to undergo a stress test. In the meantime she is also healing from a left wrist surgery. He is also still struggling with her dyspnea. I did review her CT scan of the chest that she had back in June 2020 PE protocol. No evidence of any pulmonary emboli and no evidence of any interstitial lung disease or pulmonary nodules. The patient does have a hiatal hernia and does have a history of gastric sleeve or bariatric surgery. 09/22/2022 the patient is here for a pulmonary follow-up visit. The patient is no better. She does not feel like Dupixent is helping her. She would like to stop at this time. Will go ahead and request a discontinuation at this time. She does continue to use her respiratory medications. She feels like a lot of her triggers have to do with her current home environment where she is exposed to pests in addition to mold. She was open to get a letter from me regarding her worsening symptoms in view of her environment. I did recommend we do allergy testing to see if she has any of those allergies in the she does then we can provide with objective data about her allergic reactions. The patient also had a sleep study demonstrating no evidence of sleep apnea. She was also not hypoxic with the lowest pulse ox noted to be 90%. She is wondering about oxygen with activity. We did briefly take her for a walking oximetry and the patient maintain a pulse ox of 98%. Explained to the patient that she does not qualify for oxygen. She does describe symptoms of dizziness and vertigo. I did reassure her that her symptoms of dizziness and vertigo and not related to any underlying hypoxia. 03/18/2023 the patient is here for a pulmo nary follow-up visit. She was sick a few weeks ago. She still not better. Still complaining of cough shortness of breath. Duye-fm-[id number] severity. She did go to the ER but she left after several hours of waiting. She did continue to use her respiratory medicines. Overall she is feeling little better. She still having headaches in the morning. Still feeling daytime drowsiness. Will go ahead and perform an overnight oximetry to assess her nocturnal oxygen. She may benefit from oxygen. She will continue with current respiratory therapy and prescription will be sent to her pharmacy. 06/17/2023 the patient is here for pulmonary follow-up visit. Overall, the patient is doing well. She is having hard time sleeping though. She had been doing well on the Ambien which has been helpful for her. However she has not been able to get filled. I will send to the pharmacy. She knows to take holidays from the medication. The patient does respond well to the Ambien as it helps her with her sleep hygiene. She did have multiple sleep studies demonstrating no evidence of any sleep apnea which is reassuring. More recently she did have an overnight oximetry demonstrating that she does not require oxygen either. Explained to the patient that these are reassuring findings. The patient also continues to work closely with her bariatric surgeon. She is having some abdominal issues in underlying reflux disease and difficulty swallowing. She will call them to make sure. She understands if the symptoms worsen she could result in worsening respiratory symptoms from pharyngeal or laryngeal penetration and could worsen her respiratory symptoms. Regarding her asthma, she seems to be well-controlled on the Dulera although she needs to make sure she has other medications at the pharmacy. No recent imaging studies to review. [facility] Medical History (Updated 03/18/23 @ 10:10 by Kain Gutierres MD) Dyspnea Varicose vein of leg Limb swelling Hiatal hernia Chronic cough Asthma-COPD overlap syndrome Chest pain Pleuritic chest pain Asthma Cough DEBORAH (obstructive sleep apnea) Insomnia Social History (Updated 11/20/20 @ 10:17 by Alessia Hoffman [facility]) Patient Tobacco Use Status: Never used Tobacco Review of Systems Const Reports body aches, Reports daytime sleepiness, Reports difficulty sleeping, Reports headache(s), Reports lethargy, Denies night sweats and Reports snoring ENT Denies change in voice, Reports vertigo, Reports dizziness, Reports headache(s), Denies lip swelling, Denies mouth pain, Reports nasal congestion, Reports nasal discharge and Denies tongue swelling Card Reports chest pain and Reports dyspnea on exertion Resp Reports cough, Denies hemoptysis, Denies excessive phlegm production, Reports dyspnea on exertion, Reports snoring and Reports wheezing GI Reports as per HPI and Reports abdominal pain Musc Reports abnormal gait, Reports myalgias and Reports arthralgias Neuro Denies Neuro-related abnormal movements, Reports abnormal gait, Reports vertigo, Reports dizziness and Reports headache(s) Psych Denies no additional complaints Michael/Lymph Denies easy bleeding and Denies lymphadenopathy Aller/Immun Denies lip swelling, Denies tongue swelling and Reports wheezing Physical Exam Vital Signs: Last Vital Signs Pulse 81 06/17/23 10:29 Pulse Ox 99 06/17/23 10:29 Oxygen Delivery Method Room Air 06/17/23 10:29 BMI result Body Mass Index 37.4 Const General: alert Neck Neck: Yes normal visual inspection, Yes full ROM and Yes no lymphadenopathy Chest Chest palpation & inspection: normal inspection of the chest Resp Effort & Inspection: normal respiratory effort Auscultation: diminished lung sounds Cardio Rate: regular rate Rhythm: regular rhythm Heart sounds: S1 normal heart sound present and S2 normal heart sound present GI Inspection: Yes other ( Dressings are clean, dry and intact) Auscultation: normal bowel sounds Skin General skin exam: rashes and/or lesions noted Extrem General: No clubbing, No cyanosis and Yes edema Assessment & Plan Assessment & Plan (1) Asthma-COPD overlap syndrome: Code(s): J44.9 - Chronic obstructive pulmonary disease, unspecified (2) Chronic cough: Code(s): R05 - Cough (3) Hiatal hernia: Comment: s/p hernia repair Code(s): K44.9 - Diaphragmatic hernia without obstruction or gangrene (4) Varicose vein of leg: Code(s): I83.90 - Asymptomatic varicose veins of unspecified lower extremity Qualifiers: Laterality: unspecified laterality Varicose vein complication: unspecified Qualified Code(s): I83.90 - Asymptomatic varicose veins of unspecified lower extremity (5) Insomnia: Code(s): G47.00 - Insomnia, unspecified Qualifiers: Insomnia type: primary Qualified Code(s): F51.01 - Primary insomnia (6) Dyspnea: Code(s): R06.00 - Dyspnea, unspecified Qualifiers: Dyspnea type: dyspnea on exertion Qualified Code(s): R06.09 - Other forms of dyspnea Plan Ambien for sleep Continue Dulera two hundred two puffs twice a day Continue Spiriva Continue singular continue anti histanines Reflux diet Follow-up in 6-8 months Medications: New albuterol sulfate 2.5 mg (3 mL) inhalation Q6H 30 days PRN 180 mL 11RF shortness of breath or wheezing Changed From mometasone-formoterol 200-5 mcg/actuation (Dulera) 2 puffs PO BID 13 grams 0RF To mometasone-formoterol 200-5 mcg/actuation (Dulera) 2 puffs PO BID 30 days 13 grams 11RF From albuterol sulfate 90 mcg/actuation (Ventolin HFA) 2 puffs inhalation Q4H 18 grams 0RF for dyspnea To albuterol sulfate 90 mcg/actuation (Ventolin HFA) 2 puffs inhalation Q6H 30 days 18 grams 11RF for dyspnea From zolpidem (Ambien) 10 mg PO BEDTIME PRN 30 tabs 3RF sleep To zolpidem (Ambien) 10 mg PO BEDTIME 30 days 30 tabs 3RF From roflumilast 500 mcg PO DAILY 90 tabs 0RF To roflumilast 500 mcg PO DAILY 90 days 90 tabs 3RF Refilled tiotropium bromide 2.5 mcg/actuation (Spiriva Respimat) 2 puffs inhalation DAILY 30 days 4 grams 11RF famotidine 40 mg PO DAILY 90 tabs 0RF montelukast 10 mg PO DAILY 90 tabs 3RF benzonatate 200 mg PO BID PRN 60 caps 6RF for cough cetirizine 10 mg PO DAILY 30 tabs 11RF Coding Level of Care Code Est Pt Level 4 (98871) Diagnoses Asthma-COPD overlap syndrome J44.9 Chronic cough R05 Hiatal hernia K44.9 Varicose veins of lower extremity, unspecified laterality, unspecified whether complicated I83.90 Laterality: unspecified laterality Varicose vein complication: unspecified Primary insomnia F51.01 Insomnia type: primary Dyspnea on exertion R06.09 Dyspnea type: dyspnea on exertion Time Spent (min) 17
== END 2023-06-17 10:53 | disposition home or self-care (01) ==
PROVIDERS: PCP Internal Medicine; Visit Provider Hospitalist
DX: J44.9 Chronic obstructive pulmonary disease, unspecified (principal); R05.9 Cough, unspecified; K44.9 Diaphragmatic hernia without obstruction or gangrene; I83.90 Asymptomatic varicose veins of unspecified lower extremity; F51.01 Primary insomnia; R06.09 Other forms of dyspnea
CPT/HCPCS: 99214

== ENCOUNTER → 2023-06-17 10:23 | Outpatient (BNVA) | payer OTHER, SELFPAY | PROVIDERS: PCP Internal Medicine; Visit Provider Hospitalist | DX: J44.9 Chronic obstructive pulmonary disease, unspecified (principal); G47.33 Obstructive sleep apnea (adult) (pediatric); K44.9 Diaphragmatic hernia without obstruction or gangrene; I83.90 Asymptomatic varicose veins of unspecified lower extremity; F51.01 Primary insomnia; R06.09 Other forms of dyspnea; Z79.899 Other long term (current) drug therapy | CPT/HCPCS: 99212 ==

== ENCOUNTER 2023-12-18 10:34 | Outpatient (AMB) | payer OTHER, SELFPAY ==
[2023-12-18 10:39] VITALS: BP 134/70; PULSE 84; O2SAT 100; BMI 36.2
--- NOTE | 2023-12-18 10:39 | MHC.OFFVIS ---
Vital Signs 12/18/23 10:39 Height 5 ft 4 in Weight 211 lb BMI 36.2 BP 134/70 Blood Pressure Location Lt brachial Position Sitting Pulse 84 Pulse Source Pulse Oximeter Pulse Oximetry (%) 100 Oxygen Delivery Method Room Air Intake Visit Reasons: Asthma Supervisor Fleshing Required: No Allergies alosetron [Lotronex] Allergy (Mild, Verified 12/18/23 10:45) Headache and difficulty breathing Sulfa Drugs Allergy (Mild, Uncoded 12/18/23 10:45) Headache and difficulty breathing HPI Comments Details: The patient is a 53 y/o woman with a history of asthma in addition to obstructive sleep apnea. Her asthma had been stable for several years period, but, more recently started to worsen. She has been having to use her inhalers now regularly and also has been using her short-acting beta agonist between 4 and 6 times a day. The only new exposures that she does have cockroaches in her apartment. She says she has multiple them. Her been trying to get rid of them with sprays. She has been having more wheezing. At this point she does have wheezing on examination and 11/20/2020 the patient is here for a pulmonary follow-up visit. The patient is a 50-year-old woman with a known history of asthma COPD overlap syndrome. Since we last spoke the patient has been having increasing cough. The cough is dry in nature. Moderate severity. She has also noticed increased shortness of breath. She did follow-up with occupational safety specialist and she is scheduled to undergo a stress test. In the meantime she is also healing from a left wrist surgery. He is also still struggling with her dyspnea. I did review her CT scan of the chest that she had back in June 2020 PE protocol. No evidence of any pulmonary emboli and no evidence of any interstitial lung disease or pulmonary nodules. The patient does have a hiatal hernia and does have a history of gastric sleeve or bariatric surgery. 09/22/2022 the patient is here for a pulmonary follow-up visit. The patient is no better. She does not feel like Dupixent is helping her. She would like to stop at this time. Will go ahead and request a discontinuation at this time. She does continue to use her respiratory medications. She feels like a lot of her triggers have to do with her current home environment where she is exposed to pests in addition to mold. She was open to get a letter from me regarding her worsening symptoms in view of her environment. I did recommend we do allergy testing to see if she has any of those allergies in the she does then we can provide with objective data about her allergic reactions. The patient also had a sleep study demonstrating no evidence of sleep apnea. She was also not hypoxic with the lowest pulse ox noted to be 90%. She is wondering about oxygen with activity. We did briefly take her for a walking oximetry and the patient maintain a pulse ox of 98%. Explained to the patient that she does not qualify for oxygen. She does describe symptoms of dizziness and vertigo. I did reassure her that her symptoms of dizziness and vertigo and not related to any underlying hypoxia. 03/18/2023 the patient is here for a pulmonary follow-up visit. She was sick a few weeks ago. She still not better. Still complaining of cough shortness of breath. Rdma-ga-kolgqctq severity. She did go to the ER but she left after several hours of waiting. She did continue to use her respiratory medicines. Overall she is feeling little better. She still having headaches in the morning. Still feeling daytime drowsiness. Will go ahead and perform an overnight oximetry to assess her nocturnal oxygen. She may benefit from oxygen. She will continue with current respiratory therapy and prescription will be sent to her pharmacy. 06/17/2023 the patient is here for pulmonary follow-up visit. Overall, the patient is doing well. She is having hard time sleeping though. She had been doing well on the Ambien which has been helpful for her. However she has not been able to get filled. I will send to the pharmacy. She knows to take holidays from the medication. The patient does respond well to the Ambien as it helps her with her sleep hygiene. She did have multiple sleep studies demonstrating no evidence of any sleep apnea which is reassuring. More recently she did have an overnight oximetry demonstrating that she does not require oxygen either. Explained to the patient that these are reassuring findings. The patient also continues to work closely with her bariatric surgeon. She is having some abdominal issues in underlying reflux disease and difficulty swallowing. She will call them to make sure. She understands if the symptoms worsen she could result in worsening respiratory symptoms from pharyngeal or laryngeal penetration and could worsen her respiratory symptoms. Regarding her asthma, she seems to be well-controlled on the Dulera although she needs to make sure she has other medications at the pharmacy. No recent imaging studies to review. 12/18/2023 the patient is here for a pulmonary follow-up visit. Overall the patient is doing well from a respiratory status. Although she does complaint of significant daytime drowsiness. Her [place] score is worse at 14/24. She falls asleep all the time. She also has headaches in the morning. The patient has had multiple home sleep studies without any clear evidence of sleep apnea. Although they appear to be an accurate. She has had a diagnosis of sleep apnea in the past and had a CPAP in the past. I do believe that she is unable to perform proper home sleep studies and she needs to have an in-lab study. She is also having palpitations and will be helpful to have the telemetry component to assess for any cardiac arrhythmias. She is also complaining of significant arthritis symptoms. They have been limiting her activities daily living. I do believe that a rheumatology evaluation will be helpful. The patient continues use her respiratory medicine as prescribed. She will receive the flu shot today. Will plan to order in-lab sleep study and she can follow-up with us specially his abnormal. [facility] Medical History (Updated 12/18/23 @ 10:56 by Kain Gutierres MD) Palpitation Arthritis Allergies Dyspnea Varicose vein of leg Limb swelling Hiatal hernia Chronic cough Asthma-COPD overlap syndrome Chest pain Pleuritic chest pain Asthma Cough DEBORAH (obstructive sleep apnea) Insomnia Social History (Updated 11/20/20 @ 10:17 by Alessia Hoffman Kelly) Patient Tobacco Use Status: Never used Tobacco Review of Systems Const Reports body aches, Reports daytime sleepiness, Reports difficulty sleeping, Reports headache(s), Reports lethargy, Denies night sweats and Reports snoring ENT Denies change in voice, Reports vertigo, Reports dizziness, Reports headache(s), Denies lip swelling, Denies mouth pain, Reports nasal congestion, Reports nasal discharge and Denies tongue swelling Card Reports chest pain and Reports dyspnea on exertion Resp Reports cough, Denies hemoptysis, Denies excessive phlegm production, Reports dyspnea on exertion, Reports snoring and Reports wheezing GI Reports as per HPI and Reports abdominal pain Musc Reports as per HPI, Reports abnormal gait, Reports myalgias and Reports arthralgias Neuro Denies Neuro-related abnormal movements, Reports abnormal gait, Reports vertigo, Reports dizziness and Reports headache(s) Psych Denies no additional complaints Michael/Lymph Denies easy bleeding and Denies lymphadenopathy Aller/Immun Denies lip swelling, Denies tongue swelling and Reports wheezing Physical Exam Vital Signs: Last Vital Signs Pulse 84 12/18/23 10:39 BP 134/70 12/18/23 10:39 Pulse Ox 100 12/18/23 10:39 Oxygen Delivery Method Room Air 12/18/23 10:39 BMI result Body Mass Index 36.2 Const General: alert Neck Neck: Yes normal visual inspection, Yes full ROM and Yes no lymphadenopathy Chest Chest palpation & inspection: normal inspection of the chest Resp Effort & Inspection: normal respiratory effort Auscultation: diminished lung sounds Cardio Rate: regular rate Rhythm: regular rhythm Heart sounds: S1 normal heart sound present and S2 normal heart sound present GI Inspection: Yes other ( Dressings are clean, dry and intact) Auscultation: normal bowel sounds Skin General skin exam: rashes and/or lesions noted Extrem General: No clubbing, No cyanosis and Yes edema Office Procedures Flu Questionnaire Does the patient have a severe egg allergy?: No Does the patient have severe life threatening allergies?: No Does the patient have a fever or illness today?: No Has the patient ever had Guillain-[place] Syndrome?: No Has the patient ever had any past reaction to a flu shot?: No Assessment & Plan Assessment & Plan (1) Asthma: Code(s): J45.909 - Unspecified asthma, uncomplicated Category: Medical Qualifiers: Asthma severity: moderate Asthma persistence: persistent Asthma complication type: uncomplicated Qualified Code(s): J45.40 - Moderate persistent asthma, uncomplicated (2) Chronic cough: Code(s): R05 - Cough Category: Medical (3) Hiatal hernia: Comment: s/p hernia repair Code(s): K44.9 - Diaphragmatic hernia without obstruction or gangrene Category: Medical (4) Insomnia: Code(s): G47.00 - Insomnia, unspecified Category: Medical Qualifiers: Insomnia type: primary Qualified Code(s): F51.01 - Primary insomnia (5) Dyspnea: Code(s): R06.00 - Dyspnea, unspecified Category: Medical Qualifiers: Dyspnea type: dyspnea on exertion Qualified Code(s): R06.09 - Other forms of dyspnea (6) DEBORAH (obstructive sleep apnea): Comment: Still symptomatic. EPWORTH is 03/08. Home PSG w/o DEBORAH Code(s): G47.33 - Obstructive sleep apnea (adult) (pediatric) Category: Medical Plan in lab PSG, AHI 03/08, having palpitations, home PSG have been non diagnostic. Ambien for sleep Continue Dulera two hundred two puffs twice a day Continue Spiriva Continue singular continue anti histanines Reflux diet Follow-up in 8-12 months Orders: Orders RT PSG in-lab sleep study 12/18/23 G47.33 - Obstructive sleep apnea (adult) (pediatric), R00.2 - Palpitations Influenza [id number] Immunization 12/18/23 Z23 - Encounter for immunization Referrals Rheumatology Referral M19.90 - Unspecified osteoarthritis, unspecified site Coding Level of Care Code Est Pt Level 4 (74736) Diagnoses Moderate persistent asthma without complication J45.40 Asthma severity: moderate Asthma persistence: persistent Asthma complication type: uncomplicated Chronic cough R05 Hiatal hernia K44.9 Primary insomnia F51.01 Insomnia type: primary Dyspnea on exertion R06.09 Dyspnea type: dyspnea on exertion DEBORAH (obstructive sleep apnea) G47.33 Time Spent (min) 17
== END 2023-12-18 11:38 | disposition home or self-care (01) ==
PROVIDERS: PCP Internal Medicine; Visit Provider Hospitalist
DX: J45.40 Moderate persistent asthma, uncomplicated (principal); R05.9 Cough, unspecified; K44.9 Diaphragmatic hernia without obstruction or gangrene; F51.01 Primary insomnia; R06.09 Other forms of dyspnea; G47.33 Obstructive sleep apnea (adult) (pediatric)
CPT/HCPCS: 99214

== ENCOUNTER → 2023-12-18 10:34 | Outpatient (BNVA) | payer OTHER, SELFPAY | PROVIDERS: PCP Internal Medicine; Visit Provider Hospitalist | DX: J45.40 Moderate persistent asthma, uncomplicated (principal); G47.33 Obstructive sleep apnea (adult) (pediatric); K44.9 Diaphragmatic hernia without obstruction or gangrene; F51.01 Primary insomnia; R06.09 Other forms of dyspnea; Z79.899 Other long term (current) drug therapy | CPT/HCPCS: 90471; 90656; 99212 ==

== ENCOUNTER → 2024-01-28 19:30 | Outpatient (REF) | payer OTHER, SELFPAY | LOC: HO.SL 19:30 | PROVIDERS: PCP Internal Medicine; Visit Provider Hospitalist | DX: G47.33 Obstructive sleep apnea (adult) (pediatric) (principal); R00.2 Palpitations | CPT/HCPCS: 95810 ==

== ENCOUNTER → 2024-01-28 22:11 | Outpatient (BNV) | payer OTHER, SELFPAY | PROVIDERS: PCP Internal Medicine; Visit Provider Internal Medicine | DX: G47.61 Periodic limb movement disorder (principal) | CPT/HCPCS: 95810 ==

== ENCOUNTER 2024-05-10 11:32 | Outpatient (AMB) | payer OTHER, SELFPAY ==
--- NOTE | 2024-05-10 11:33 | A.OFFVIS_ITS ---
Vital Signs 05/10/24 11:35 Height 5 ft 4 in Weight 215 lb 2.738 oz BMI 36.9 BP 132/86 Blood Pressure Location Lt brachial Position Sitting Pulse 73 Pulse Source Pulse Oximeter Pulse Oximetry (%) 97 Oxygen Delivery Method Room Air Intake Visit Reasons: Arthritis/internal ref Intake Note: New patient internally referred by Dr. Gutierres for Arthritis. Drier Operator Head Required: Yes Drier Operator Head Language: Radio Electronics Technician Services: Drier Operator Head Present Drier Operator Head Name: Becca [id number] Accompanied by: Self / Same As Patient Allergies alosetron [Lotronex] Allergy (Mild, Verified 05/10/24 11:37) Headache and difficulty breathing Sulfa Drugs Allergy (Mild, Uncoded 05/10/24 11:37) Headache and difficulty breathing HPI HPI Arthritis/internal ref: Details: New patient visit. Hungarian speaking patient. 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 Everything hurts. She had imaging of c spine and hands, which showed arthritis. She was referred to PT for neck and hands but reports no benefit. Referral for further management. She has pain in bilateral wrist, MCPS and PIPs for a year. Sometimes she has pain in arms radiating to shoulders. Hands are swollen in the morning 2 hours improved with using a warm cloth. MS all day. She uses oxycodone prescribed by [facility] for lumbar DDD with radiculopathy. Surgey was not recommended because of the risk of being paralysed if she fell. When she walks she has pain radiating down her arms from her neck. She has seen [facility] who has performed MRI c-spine and was told at follow-up that she had arthritis in her neck. She has long standing hx of urinary incontinence. She has completed PT for shoulders 1 year ago. She does not do PT exercises for upper body because it exacerbates her back pain. She walks daily. She falls even with cane or walker. PMX reviewed. Hx asthma/COPD overlap. Hx of palpitations and follows with cardiology, HLD, DM Hx of Lumbar spine surgery 2020 with disectomy without benefit. Hx of bariatric surgery x2 Daughter has RA. She has not worked in the past. Nonsmoker or alcohol use. [facility] Medical History (Updated 05/10/24 @ 12:39 by Kvng Velásquez MD) Palpitation Arthritis Allergies Dyspnea Varicose vein of leg Limb swelling Hiatal hernia Chronic cough Asthma-COPD overlap syndrome Chest pain Pleuritic chest pain Asthma Cough DEBORAH (obstructive sleep apnea) Insomnia Surgical History Hx of hysterectomy History of back surgery History of throat surgery Hx of knee surgery History of carpal tunnel release of both wrists Family History Mother Pacemaker Diabetes Father No problems noted. Social History Patient Tobacco Use Status: Never used Tobacco Review of Systems Const All systems reviewed & are unremarkable except as noted in HPI and below Physical Exam Vital Signs: Last Vital Signs Pulse 73 05/10/24 11:35 BP 132/86 05/10/24 11:35 Pulse Ox 97 05/10/24 11:35 Oxygen Delivery Method Room Air 05/10/24 11:35 BMI result Body Mass Index 36.9 Const Other: General: Comfortable CVS: RRR Respiratory: clear to auscultation bilaterally. Good respiratory effort Skin: No lesions seen MSK: She has limited cervical flexion and extension. Good cervical rotation. She has synovitis right 2nd and 3rd MCP. Tender to palpate left 2nd to 5th MCPs and right 1st MCP. Tender left PIP 2-5. Tender left wrist. Weak technical business analyst bilaterally. Shoulder abduction 110 degrees bilateral. She is able to internally rotate and externally rotate both shoulders. She has pain with shoulder range of motion. She is able to externally rotate bilateral hips but it is limited. Limited knee flexion 60 degrees bilateral. Bilateral MTP tenderness and ankle tenderness. She has soft tissue swelling of bilateral dorsal feet left worse than right. Assessment & Plan Assessment & Plan (1) Inflammatory arthritis: Comment: Examined symptoms are consistent with inflammatory arthritis. I will order labs and x-ray for further evaluation. I will start low-dose prednisone. We discussed importance of monitoring glucose level due to history of diabetes on prednisone. Code(s): M19.90 - Unspecified osteoarthritis, unspecified site Category: Medical Plan: Labs ordered X-rays ordered Start prednisone 7.5 mg daily She is on omeprazole 20 mg daily Return to clinic in 2-4 weeks to discuss results and next steps with DMARD ramandeep albarran (2) Neck pain: Comment: With history of degenerative joint disease contributing to limited range of motion. I am ordering x-rays for further evaluation. I will hold off on PT as she reports upper extremity/neck physical therapy exacerbates lower back pain. Code(s): M54.2 - Cervicalgia Category: Medical Plan: C-spine x-ray ordered to evaluate for new pathology I have requested MRI report from [facility] (3) Frequent falls: Comment: She will benefit from gait training. History of lumbar disc disease status post diskectomy 2019. Code(s): R29.6 - Repeated falls Category: Medical Plan: PT ordered Orders: Orders Alanine Aminotransferase Today M19.90 - Unspecified osteoarthritis, unspecified site T Spot TB Today M19.90 - Unspecified osteoarthritis, unspecified site Rheumatoid Factor Today M19.90 - Unspecified osteoarthritis, unspecified site C Reactive Protein Today Z79.899 - Other skilled nursing (current) drug therapy JAMI Reflex Titer and Pattern Today M19.90 - Unspecified osteoarthritis, unspecified site XR foot LT min 3V Today M19.90 - Unspecified osteoarthritis, unspecified site XR foot RT min 3V Today M19.90 - Unspecified osteoarthritis, unspecified site XR cervical spine 3V Today M54.2 - Cervicalgia Aspartate Amino Transferase Today M19.90 - Unspecified osteoarthritis, unspecified site Cyclic Citrullinated Peptide Today M19.90 - Unspecified osteoarthritis, unspecified site Hepatitis B,C Profile Today M19.90 - Unspecified osteoarthritis, unspecified site Erythrocyte Sedimentation Rate Today Z79.899 - Other skilled nursing (current) drug therapy Complete Blood Count Auto Diff Today M19.90 - Unspecified osteoarthritis, unspecified site Creatinine Today M19.90 - Unspecified osteoarthritis, unspecified site XR hand LT min 3V Today M19.90 - Unspecified osteoarthritis, unspecified site XR hand RT min 3V Today M19.90 - Unspecified osteoarthritis, unspecified site PT Evaluation and Treatment Today R29.6 - Repeated falls Medications: New prednisone Take with food. Hungarian label. 7.5 mg (3 x 2.5 mg) PO DAILY 90 tabs 1RF 30 days Coding Level of Care Code New Pt Level 4 (86524) Diagnoses Inflammatory arthritis M19.90 Neck pain M54.2 Frequent falls R29.6
[2024-05-10 11:35] VITALS: BP 132/86; PULSE 73; O2SAT 97; BMI 36.9
--- OUTSIDE RECORDS SUMMARY | 2024-05-10 14:10 | XMS_ITS | Clinical Summary ---
Author Organization [facility] Address [address] [place] [address] Care Team Providers Care Meteorological Equipment Repairer Name Role Phone Unavailable Primary Care Provider Unavailabl e Source Comments PLEASE NOTE, if this patient is a minor, it may be UNLAWFUL to discuss sensitive information that is contained in these records (such as FAMILY PLANNING, MENTAL HEALTH or SUBSTANCE ABUSE) with the minor patient's parent or other person without the patient's specific authorization.[facility] Social History Tobacco Use Types Packs/Day Years Used Date Smoking Tobacco: Never Assessed Social Connections Answer Date Recorded Connectedness 0 11/30/2023 Financial Resource Strain Answer Date R ecorded Financial Resource Strain 0 2023 Stress Answer Date Recorded Stress 0 10/07/2023 Physical Activity Answer Date Recorded Physical Activity 0 10/07/2023 Food Insecurity Answer Date Recorded Food 0 12/10/2023 Transportation Needs Answer Date Record ed Transportation 0 10/07/2023 Housing Stability Answer Date Recorded Housing 0 10/07/2023 Safety and Environment Answer Date Ha rded Safety 0 10/07/2023 Utilities Answer Date Recorded Utilities 0 10/07/2023 Employment Answer Date Recorded Stress 0 11/30/2023 Comments Unknown Sex and Gender Information Value Date Recorded Sex Assigned at Not on file Legal Sex Female 6:24 AM PDT Gender Identity Not on file Sexual Orientation Not on file Plan of Treatment Health Maintenance Due Date Last Done Comments Dental Perio Charting 1969 Dental Prophy 1969 Diabetes Screening 1969 HPV Screening 1969 Hepatitis C Screening 1969 Lipid Screening 1969 Pap + HPV 1969 Tobacco Screening 1969 HIV Screening 1984 Hypertension Screening (#1) 07/21/1987 Cervical Cancer Screening 1990 Pap Smear 1990 Breast Cancer Screening (Mammogram) 2009 CT Colonography 2014 Colonoscopy 2014 FIT/gFOBT 2014 Flexible Sigmoidoscopy 2014 Imm-Zoster, Recombinant (1 of 2) 07/21/2019 [id number] (1 - 2023- season) 2023 Imm-Influenza (#1) 2023 02/23/2020, 1 , 12/01/2018, Additional history exists Alcohol and Drug Screen 03/16/2024 Depression Annual Screen 03/16/2024 Dental BW 10/08/2024 10/07/2023 Dental Examination 10/08/2024 10/07/2023 Colorectal Cancer Screening 09/21/2026 Fecal DNA 09/21/2026 09/22/2023, 09/22/2023 Dental FMX/Pano 10/08/2028 10/07/2023 Imm-DTaP/Tdap/Td (5 - Td or Tdap) 09/07/2033 09/08/2023, 10/14/2011, 08/07/2010, Additional history exists Imm-Hepatitis B Completed 06/26/2014, 08/14, 07/25/2013 Cervical Ablation/Cold-Knife Conization Discontinued Cervical Cryotherapy Discontinued Colposcopy Discontinued Endometrial Biopsy Discontinued Excision/Leep Discontinued HPV Genotyping Discontinued Vaginal Pap Discontinued Vulvoscopy Discontinued Procedures Procedure Name Priority Date/Time Associated Diagnosis Comments INTRAORAL - COMP SERIES OF RADIOGRAPHIC IMAGES Routine 10/07/2023 1:00 PM EDT Retained tooth root Dental infection Caries COMP ORAL EVALUATION - NEW/ESTABLISHED PATIENT Routine 10/07/2023 1:00 PM EDT Caries from Last 3 Months or Most Recently Relevant to Health Maintenance Insurance [place] MEDICAID DENT[place]
--- OUTSIDE RECORDS SUMMARY | 2024-05-10 14:10 | XMS_ITS | Clinical Summary ---
Author Organization [address] [place] [address] [place] [phone] Phone Care Team Providers Care Automatic Maintainer Name Role Phone Gretchen Butterfield MD Primary Care Provider Allergies Active Allergy Reactions Criticality Noted Date Comments Enoxaparin Headache,Wheezing 08/01/2021 Sulfa (Sulfonamide Antibiotics) Headache,Wheezing 08/01/2021 Medications cholecalciferol (VITAMIN D-3) 50 mcg (2,000 unit) tablet Take 1 tablet (2,000 Units total) by mouth 1 (one) time each day. 4 Active ferrous sulfate 325 mg (65 mg elemental iron) tablet Take 1 Tablet by mouth 3 times daily. 3 Active UNABLE TO FIND Ondansetron 4 MG FILM Take 4 mg by mouth every 8 hours as needed (nausea). 2 Active simethicone (MYLICON) 80 mg chewable tablet Take 1 Tablet by mouth every 6 hours as needed for Flatulence. 2 Active WHEAT DEXTRIN ORAL Take 4 g by mouth daily. 2 Active umeclidinium (Incruse Ellipta) 62.5 mcg/actuation inhalation Inhale 1 puff by mouth 1 (one) time each day. 9 Active medical supply, miscellaneous (MISCELLANEOUS MEDICAL SUPPLY MISC) CPAP Historical (HISTORICAL CPAP) Inhale into the lungs. [employer] Active meclizine (ANTIVERT) 25 mg tablet Take by mouth. Activ e ASPIRIN ORAL Take by mouth. Ac tive atorvastatin (LIPITOR) 40 mg tablet Take 40 mg by mouth daily. Active dilTIAZem CD (CARDIZEM CD) 120 mg 24 hr capsule Take 120 mg by mouth daily. Active ketotifen fumarate (ZADITOR) 0.035 % ophthalmic solution 1 Drop 3 times daily. Active losartan (COZAAR) 25 mg tablet Take 25 mg by mouth daily. Active metFORMIN (GLUCOPHAGE) 850 mg tablet Take 850 mg by mouth 2 times daily (with meals). Active omeprazole (PriLOSEC) [address] capsule Take 40 mg by mouth daily. Active pantoprazole (PROTONIX) 40 mg packet Take by mouth. Activ e oxyCODONE-acetami nophen (PERCOCET) 10-325 mg per tablet Take 1 tablet by mouth every 4 (four) hours. Max Daily Amount: 6 tablets Active cetirizine (ZyrTEC) 10 mg capsule Take by mouth. Activ e Active Problems Problem Noted Date Diagnosed Date Class 1 obesity due to exces s calories with body mass index (BMI) of 33.0 to 33.9 in adult 02/16/2024 Intestinal malabsorption following gastrectomy 0 10/06/2017 Depression 01/16/2017 Diabetes mellitus type 2, uncomplicated 01/17/20 17 Overview (02/16/2024): 05/2017 no medications Hyperlipidemia 01/16/2017 Hypertension 01/16/2017 Migraine 01/16/2017 Dysphagia 12/31/2016 Acid reflux disease 12/31/2016 Asthma 10/30/2016 Obstructive sleep apnea syndrome 10/30/2016 Seasonal allergic rhinitis 10/30/2016 Asthma-chronic obstructive p ulmonary disease overlap syndrome 09/17/2016 Hiatal hernia 09/17/2016 Thoracic back pain 05/22/2016 Surgical History Surgery Date Site/Laterality Comments SECTION PROCEDURE: HISTORICAL DELIVERY BACK SURGERY PROCEDURE: HISTORICAL BACK SURGERY BARIATRIC SURGERY 06/19/2017 PROCEDURE: CO LAPS GSTRC RSTRICTIV PX LONGITUDINAL GASTRECTOMY OTHER SURGICAL HISTORY 06/19/2017 PROCEDURE: CO LAPS RPR PARAESPHGL HRNA INCL FUNDPLSTY W/O MESH HYSTERECTOMY PROCEDURE: HISTORICAL HYSTERECTOMY ANKLE SURGERY Bilateral PROCEDURE: HISTORICAL ANKLE SURGERY; COMMENT: arthroscopy w/debridement of ankle ligament CARPAL TUNNEL RELEASE Bilateral PROCEDURE: HISTORICAL CARPAL TUNNEL REL ELBOW SURGERY Bilateral PROCEDURE: HISTORICAL ELBOW SURGERY; COMMENT: ulnar nerve release Medical History Medical History Date Comments Diabetes mellitus type 2, uncomplicated (CMS/HCC) 01/16/2017 DX:Diabetes mellitus type 2, uncomplicated ([facility]); COMMENT: 05/2017 no medications Hypertension 01/16/2017 DX:Hypertension Depression 01/16/2017 DX:Depression Hyperlipidemia 01/16/2017 DX:Hyperlipidemi a Migraine 01/16/2017 DX:Migraine History of bariatric surgery 12/02/2017 DX: History of bariatric surgery; COMMENT: 06/2017 sleeve Asthma-chronic obstructive p ulmonary disease overlap syndrome (CMS/HCC) 09/17/2016 DX:Asthma-chronic o bstructive pulmonary disease overlap syndrome (HCC) Thoracic back pain 05/22/2016 DX:Thoracic b ack pain Hiatal hernia 09/17/2016 DX:Hiatal hernia Obstructive sleep apnea syndrome 10/30/2016 DX:Obstructive sleep apnea syndrome Seasonal allergic rhinitis 10/30/2016 DX:Se asonal allergic rhinitis Asthma 10/30/2016 DX:Asthma Intestinal malabsorption fol lowing gastrectomy 10/06/2017 DX:Intestinal malabsorption following gastrectomy Covid-19 08/05/2019 DX:COVID-19; COM MENT: waiting on results Social History Tobacco Use Types Packs/Day Years Used Date Smoking Tobacco: Never Smokeless Tobacco: Never Alcohol Use Standard Drinks/Week Comments No 0 (1 standard drink = 0.6 oz pur e alcohol) Comments Unknown Sex and Gender Information Value Date Recorded Sex Assigned at Not on file Legal Sex Female 4:33 AM EST Gender Identity Not on file Sexual Orientation Not on file Obstetrics History Last Filed Vital Signs Vital Sign Reading Time Taken Comments Blood Pressure 100/77 10/30/2022 10:19 AM EDT Pulse 84 10/30/2022 10:19 AM EDT Temperature - - Respiratory Rate - - Oxygen Saturation - - Inhaled Oxygen Concentration - - Weight 95.3 kg (210 lb) 06/04/2023 10:42 AM EDT Height 167.6 cm (5' 6 ) 10/30/2022 10:19 AM EDT Body Mass Index 33.89 10/30/2022 10:19 AM EDT Plan of Treatment Upcoming Encounters Date Type Department Care Team (Late st Contact Info) Description 05/16/2024 4:00 PM EST Office Visit Bariatric Surgery - [address] [place] [phone] Leticia Cerna MD [address] [place] [phone] Health Maintenance Due Date Last Done Comments Breast Cancer Screening 1969 Diabetes: Annual Foot Exam 07/21/1979 Diabetes: Annual Retina Eye Exam 07/21/1979 DTaP,Tdap,and Td Vaccines (1 - Tdap) 1988 Hepatitis B Vaccines (1 of 3 - 19+ 3-dose series) 1988 Pneumococcal Vaccine: 50+ Ye ars (1 of 2 - PCV) 1988 Pneumococcal Vaccine: Pediat rics (0 to 5 Years) and At-Risk Patients (6 to 64 Years) (1 of 2 - PCV) 1988 Cervical Cancer Screening: P ap Smear 1990 Zoster Vaccines (1 of 2) 07/21/2019 Diabetes: Annual GFR (Glomer ular Filtration Rate) 08/14/2021 08/14/2020 Colorectal Cancer Screening: Colonoscopy 02/22/2022 Depression Screening 02/22/2022 HIV Screening 02/22/2022 Hepatitis C Screening 02/22/2022 Social Influencers of Health Screening 02/22/2022 Diabetes: Annual Urine Albumin-Creatinine Ratio (uACR) 02/28/2022 Diabetes: Blood Sugar Contro l Test (HGBA1C) 02/28/2022 08/14/2020 Hypertension/CHF/CAD Annual BMP Blood Test 02/28/2022 08/14/2020 COVID-19 Vaccine ( - 2023-2 5 season) 2023 Influenza Vaccine (#1) 2023 Cholesterol Screening (Lipid Panel) 08/14/2025 08/14/2020 HIB Vaccines Aged Out No longer eligi ble based on patient's age to complete this topic HPV Vaccines Aged Out No longer eligi ble based on patient's age to complete this topic Hepatitis A Vaccines Aged Out No long er eligible based on patient's age to complete this topic IPV Vaccines Aged Out No longer eligi ble based on patient's age to complete this topic MMR Vaccines Aged Out No longer eligi ble based on patient's age to complete this topic Meningococcal ACWY Vaccine Aged Out N o longer eligible based on patient's age to complete this topic Meningococcal B Vacine Aged Out No lo nger eligible based on patient's age to complete this topic RSV Immunization Patients Un reba 20 months Aged Out No longer eligible b ased on patient's age to complete this topic Varicella Vaccines Aged Out No longer eligible based on patient's age to complete this topic Procedures Procedure Name Priority Date/Time Associated Diagnosis Comments ANNUAL BMP BLOOD TEST Routine 08/14/2020 HEMOGLOBIN A1C Routine 08/14/2020 LIPID PANEL Routine 08/14/2020 from Last 3 Months or Most Recently Relevant to Health Maintenance Results * Annual BMP Blood Test (08/14/2020) Annual BMP Blood Test abstracted [facility] Provider MD HEALTH MAINTENANCE Final Result * Hemoglobin A1c (08/14/2020) Hemoglobin A1C 5.9 <=6.5 % Blood Venous blood specimen / Unknown [facility] Provider MD LAB BLOOD ORDERABLES Griselda l Result * (ABNORMAL) Lipid panel (08/14/2020) LDL/HDL Ratio 5(A) 0 - 4 Triglycerides 167(A) 0 - 150 mg/dL Cholesterol 209(A) 0 - 200 mg/dL HDL 45 >=40 mg/dL LDL Cholesterol 131(A) 0 - 100 mg/dL Blood Venous blood specimen / Unknown [facility] Provider LAB BLOOD ORDERABLES Griselda l Result from Last 3 Months or Most Recently Relevant to Health Maintenance Insurance [employer] Care Teams Automatic Maintainer Relationship Specialty Start Date End Date Gretchen Butterfield MD [address] [place] [address] [place] [phone] PCP - General 10/31/19
== END 2024-05-10 12:37 | disposition home or self-care (01) ==
LOC: HO.RHES 11:32
PROVIDERS: PCP Internal Medicine; Visit Provider Internal Medicine Rheumatology
DX: M19.90 Unspecified osteoarthritis, unspecified site (principal); M54.2 Cervicalgia; R29.6 Repeated falls
CPT/HCPCS: 99204

== ENCOUNTER → 2024-05-10 11:32 | Outpatient (BNVA) | payer OTHER, SELFPAY | PROVIDERS: PCP Internal Medicine; Visit Provider Internal Medicine Rheumatology | DX: M19.90 Unspecified osteoarthritis, unspecified site (principal); M54.2 Cervicalgia; R29.6 Repeated falls; Z79.899 Other long term (current) drug therapy | CPT/HCPCS: 99202 ==

== ENCOUNTER 2024-06-10 09:55 | Outpatient (REF) | payer OTHER, SELFPAY ==
--- NOTE | ~2024-06-10 | XR_ITS ---
CLINICAL HISTORY: M19.90 - Unspecified osteoarthritis, unspecified site 3 view left foot Comparison: None Findings: Bones intact. No dislocations. No significant loss of joint space, osteophytes, or erosions. No ankle effusion. There is surgical hardware overlying the distal tibia. IMPRESSION: 1. No acute findings. This document has been electronically signed by: Avinash Martin MD on 06/11/2024 08:35:50
--- NOTE | ~2024-06-10 | XR_ITS ---
CLINICAL HISTORY: M54.2 - Cervicalgia 3 views cervical spine Comparison: None Findings: Normal alignment. No acute fractures or dislocation. There is multiple level degenerative disc change. No prevertebral soft tissue swelling. IMPRESSION: No acute findings. This document has been electronically signed by: Avinash Martin MD on 06/11/2024 08:16:37
--- NOTE | ~2024-06-10 | XR_ITS ---
CLINICAL HISTORY: M19.90 - Unspecified osteoarthritis, unspecified site 3 view right foot Comparison: None Findings: Bones intact. No dislocations. No significant arthritic change or erosions. No ankle effusion. There is surgical hardware overlying the distal tibia.. IMPRESSION: 1. No acute findings. This document has been electronically signed by: Avinash Martin MD on 06/11/2024 08:17:52
--- NOTE | ~2024-06-10 | XR_ITS ---
CLINICAL HISTORY: M19.90 - Unspecified osteoarthritis, unspecified site 3 view bilateral hands Comparison: None Findings: Bones intact. No dislocations. No significant loss of joint space or osteophytes. No erosions. No radiopaque foreign body. IMPRESSION: 1. No acute findings This document has been electronically signed by: Avinash Martin MD on 06/11/2024 08:35:40
[2024-06-10 10:45] LABS: MANUAL DIFF FLAG NO
[2024-06-10 11:22] LABS: Basophils Percent Auto 0.5 % (0-2); Eosinophils Absolute Auto 0.1 X10*3/uL (0.0-0.4); Hematocrit 40.1 % (37.0-47.0); Hemoglobin 12.4 g/dl (12.0-16.0); Imm Gran Abs Auto 0.02 X10*3/uL (0.00-0.03); Imm Gran Pct Auto 0.4 % (0.0-0.4); Lymphocytes Absolute Auto 1.9 X10*3/uL (1.2-4.9); Lymphocytes Percent Auto 34.1 % (20-40); Mean Corpuscular HGB Conc 30.9 g/dl (31.0-35.0); Mean Corpuscular Hemoglobin 22.8 pg (27.0-33.0); Mean Corpuscular Volume 73.7 fL (80.0-98.0); Mean Platelet Volume 9.7 fL (9.4-12.3); Monocytes Absolute Auto 0.4 X10*3/uL (0.1-1.2); Monocytes Percent Auto 6.3 % (2-11); Neutrophils Absolute Auto 3.2 x10*3/uL (2.0-8.3); Neutrophils Percent Auto 56.7 % (45-73); Platelet Count 370 X10*3/uL (160-400); Red Blood Count 5.44 X10*6/uL (4.20-5.50); Red Cell Distribution Width 16.5 % (11.0-16.0); White Blood Count 5.6 X10*3/uL (4.8-10.8)
[2024-06-10 11:53] LABS: Rheumatoid Factor 40.8 IU/mL (<15.0)
[2024-06-10 11:54] LABS: Alanine Aminotransferase 12 U/L (0-31); Aspartate Amino Transferase 20 U/L (5-31); Estimated Glomerular Filt Rate > 60
[2024-06-10 11:55] LABS: Estimated Average Glucose 108 mg/dL; Hemoglobin A1C 113.4002 umol/L; Hemoglobin A1c % 5.4 % (<6.0); Total Hemoglobin (HGBA1C) 3239.4964 umol/L
[2024-06-10 11:58] LABS: Alanine Aminotransferase 11 U/L (0-31); Albumin Level 4.1 g/dL (3.5-5.0); Alkaline Phosphatase 87 U/L (39-117); Amylase 25 U/L (28-100); Anion Gap 10 (12-20); Aspartate Amino Transferase 19 U/L (5-31); Bilirubin Direct 0.2 mg/dL (0.0-0.5); Bilirubin Total 0.5 mg/dL (0.0-1.0); Blood Urea Nitrogen 10 mg/dL (9-16); C Reactive Protein 0.18 mg/dL (< or = 0.50); Calcium 9.4 mg/dL (8.4-10.2); Carbon Dioxide 26 mmol/L (22-29); Chloride 107 mmol/L (96-108); Cholesterol 195 mg/dL (<200); Estimated Glomerular Filt Rate > 60; Glucose Random 90 mg/dL (60-115); HDL Cholesterol 41 mg/dL (>40); LDL Cholesterol Calculated 136 mg/dL (<100); Lipase 13 U/L (8-78); Potassium 3.6 mmol/L (3.3-5.1); Sodium 139 mmol/L (135-145); Total Protein 7.7 g/dL (6.5-8.0); Triglycerides 93 mg/dL (<150)
[2024-06-10 12:08] LABS: Erythrocyte Sedimentation Rate 34 MM/HR (0-20)
[2024-06-10 12:12] LABS: Gamma Glutamyl Transpeptidase 8 U/L (7-33)
[2024-06-10 12:34] LABS: HBS Num1 305.31 mIU/mL (0-7.99); HBc Num1 0.08 S/CO (0.00-0.79); HBsAGNum1 0.32 S/CO (0.00-0.99); Hepatitis B Core Antibody Nonreactive (Nonreactive); Hepatitis B Surface Antigen Negative (Negative); ~HepC Num1 0.25 S/CO (0.00-0.79); ~Hepatitis B Surface Antibody REACTIVE (Nonreactive); ~Hepatitis C Antibody Nonreactive (Nonreactive)
[2024-06-13 19:19] LABS: TS Negative Control Passed; TS Panel A 3; TS Panel B 0; TS Positive Control Passed; TSpotTB Negative (Negative)
[2024-06-15 11:53] LABS: ANA Pattern 2 Nuclear, Homogeneous; ANA Titer 2 1:40 titer; Anti Nuclear Antibody Pattern Nuclear, Speckled; Anti Nuclear Antibody Screen POSITIVE (NEGATIVE)
[2024-06-16 06:53] LABS: Cyclic Citrullinated Peptide <16 UNITS
== END 2024-06-10 09:56 | disposition home or self-care (01) ==
LOC: HO.XRAY 09:55
PROVIDERS: Absent Provider Physician Assistant; PCP Internal Medicine; Visit Provider Internal Medicine Rheumatology
DX: E66.01 Morbid (severe) obesity due to excess calories (principal); M19.90 Unspecified osteoarthritis, unspecified site; M54.2 Cervicalgia; Z79.899 Other long term (current) drug therapy
CPT/HCPCS: 36415; 72040; 73130; 73630; 80048; 80061; 80076; 82150; 82565; 82977; 83036; 83690; 84443; 84450; 84460; 85025; 85652; 86038; 86039; 86140; 86200; 86431; 86481; 86704; 86706; 86803; 87340

== ENCOUNTER → 2024-06-10 10:06 | Outpatient (BNV) | payer OTHER, SELFPAY | PROVIDERS: Absent Provider Physician Assistant; PCP Internal Medicine; Visit Provider Specialist | DX: M54.2 Cervicalgia (principal); M19.041 Primary osteoarthritis, right hand; M19.042 Primary osteoarthritis, left hand; M19.071 Primary osteoarthritis, right ankle and foot; M19.072 Primary osteoarthritis, left ankle and foot | CPT/HCPCS: 72040; 73130; 73630 ==

== ENCOUNTER 2024-06-14 09:20 | Outpatient (AMB) | payer OTHER, SELFPAY ==
--- NOTE | 2024-06-14 10:15 | MHC.OFFVIS ---
Vital Signs 06/14/24 10:16 Height 5 ft 4 in Weight 204 lb 9.423 oz BMI 35.1 BP 126/74 Blood Pressure Location Lt brachial Position Sitting Pulse 77 Pulse Source Pulse Oximeter Pulse Oximetry (%) 100 Oxygen Delivery Method Room Air Intake Visit Reasons: Arthritis Intake Note: Patient presents for follow up on Raynaud's, and both her knees. Patient states she is still in pain. Shipwright Supervisor Required: Yes Shipwright Supervisor Name: Yoan [phone] Allergies alosetron [Lotronex] Allergy (Mild, Verified 06/14/24 10:19) Headache and difficulty breathing Sulfa Drugs Allergy (Mild, Uncoded 06/14/24 10:19) Headache and difficulty breathing HPI HPI Arthritis: Details: interpreter for the deaf use. She did not find any benefit on prednisone 7.5 mg daily. She continues to have swelling in her joints. She is experiencing neck pain with difficulty moving. [facility] Medical History (Updated 06/14/24 @ 12:50 by Kvng Velásquez MD) Palpitation Arthritis Allergies Dyspnea Varicose vein of leg Limb swelling Hiatal hernia Chronic cough Asthma-COPD overlap syndrome Chest pain Pleuritic chest pain Asthma Cough DEBORAH (obstructive sleep apnea) Insomnia Surgical History Hx of hysterectomy History of back surgery History of throat surgery Hx of knee surgery History of carpal tunnel release of both wrists Family History Mother Pacemaker Diabetes Father No problems noted. Social History Patient Tobacco Use Status: Never used Tobacco Review of Systems Const All systems reviewed & are unremarkable except as noted in HPI and below Physical Exam Vital Signs: Last Vital Signs Pulse 77 06/14/24 10:16 BP 126/74 06/14/24 10:16 Pulse Ox 100 06/14/24 10:16 Oxygen Delivery Method Room Air 06/14/24 10:16 BMI result Body Mass Index 35.1 Const Other: General: Comfortable CVS: RRR Respiratory: clear to auscultation bilaterally. Good respiratory effort Skin: No lesions seen MSK: She has synovitis right 2rd, 3rd and 5th MCP and left 2-3rd MCPs. Tender to palpate bilateral MCPs and PIPs. Tender left wrist. Shoulder abduction 120 degrees bilateral. She is able to internally rotate and externally rotate both shoulders. She has pain with shoulder range of motion. She is able to externally rotate bilateral hips but it is limited. Limited knee flexion 60 degrees bilateral. Bilateral ankle tenderness. Assessment & Plan Assessment & Plan (1) Rheumatoid arthritis: Comment: +RF 40.8. Anti CCP antibody results are pending from labs that were recently done 06/10/2024. She has elevation in ESR. Exam is consistent with inflammatory arthritis. It has worsened while she is on low-dose prednisone. We discussed treatment with DMARD therapy methotrexate. Discussed side effects, benefits and drug monitoring. Answered patient's questions to her satisfaction. Code(s): M06.9 - Rheumatoid arthritis, unspecified Category: Medical Plan: Start methotrexate 12.5 mg once weekly. Information in Russian given to patient Start folic acid 1 mg daily Prednisone course prescribed with taper Avoid oral NSAIDs while on prednisone Patient requested Tylenol with codeine. I informed patient that I do not prescribe narcotics. Defer to PCP. Return to clinic in 2 months (2) Cervical spondylosis: Comment: Limited range of motion due to multilevel disc changes on recent x-ray. We discussed diagnosis and management. She has seen [facility] and has failed PT and C-spine cortisone injections per patient. Code(s): M47.812 - Spondylosis without myelopathy or radiculopathy, cervical region Category: Medical Plan: Patient declined PT I inform patient that I do not prescribe narcotics for pain management. Defer decision to PCP. Orders: Orders Complete Blood Count Auto Diff 1 Month Z79.60 - terminal superintendent (current) use of unspecified immunomodulators and immunosuppressants Creatinine 1 Month Z79.60 - terminal superintendent (current) use of unspecified immunomodulators and immunosuppressants Erythrocyte Sedimentation Rate 1 Month M19.90 - Unspecified osteoarthritis, unspecified site C Reactive Protein 1 Month M19.90 - Unspecified osteoarthritis, unspecified site Aspartate Amino Transferase 1 Month Z79.60 - skilled nursing (current) use of unspecified immunomodulators and immunosuppressants Alanine Aminotransferase 1 Month Z79.60 - terminal superintendent (current) use of unspecified immunomodulators and immunosuppressants Medications: New prednisone Take 4 tablets daily 1 week, 3 tablets daily 1 week, 2 tablet daily 1 week, 1 tablet daily 1 week. Take prednisone with food. 5 mg PO DIRECTED 70 tabs 0RF folic acid 1 mg PO DAILY 30 tabs 11RF methotrexate sodium 12.5 mg (5 x 2.5 mg) PO QWEEK 4 weeks 20 tabs 0RF Coding Level of Care Code Est Pt Level 4 (54302) Complex EM visit Add On G2211 Diagnoses Rheumatoid arthritis M06.9 Cervical spondylosis M47.812
[2024-06-14 10:16] VITALS: BP 126/74; PULSE 77; O2SAT 100; BMI 35.1
--- OUTSIDE RECORDS SUMMARY | 2024-06-14 10:27 | XMS_ITS | Continuity of Care Document ---
Author Organization [facility] Address [address] [place] [address]- Care Team Providers Care Senior Network Administrator Name Role Phone Keily Lopez MD Primary Care Physician Encounter [facility] [id number] Date(s): 05/12/24 - 06/11/[address] [id number] Attending Physician: [id number] Admitting Physician: Admtr, Ar8 Referring Physician: Admtr, Ar8 Encounter Type: Triage Allergies, Adverse Reactions, Alerts Substance Criticality Severity Reaction Reaction Severity Status sulfa drugs shortness of br eath headache Active Lovenox shortness of br eath and headache Active Immunizations Given and Recorded Vaccine Date Status Refusal Reason tetanus/diphtheria/pertussis, acel(Tdap) 09/08/23 Given tetanus/diphtheria/pertussis, acel(Tdap) 1 10/14/11 Given tetanus/diphtheria/pertussis, acel(Tdap) 08/07/10 Recorded tetanus/diphtheria/pertussis, acel(Tdap) 03/12/10 Recorded pneumococcal 20-valent conjugate vaccine 09/08/23 Given influenza virus vaccine, inactivated 02/23/20 Give n influenza virus vaccine, inactivated 12/20/18 Give n influenza virus vaccine, inactivated 12/01/18 Ha rded influenza virus vaccine, inactivated 12/30/17 Give n influenza virus vaccine, inactivated 02/24/17 Give n influenza virus vaccine, inactivated 05/21/16 Give n influenza virus vaccine, inactivated 01/23/15 Ha rded influenza virus vaccine, inactivated 12/02/13 Ha rded influenza virus vaccine, inactivated 2 11/05/11 Gi samantha influenza virus vaccine, inactivated 3 05/13/11 Gi samantha influenza virus vaccine, inactivated 12/18/10 Ha rded influenza virus vaccine, inactivated 12/21/09 Ha rded hepatitis B adult vaccine 06/26/14 Recorded hepatitis B adult vaccine 08/25/13 Recorded hepatitis B adult vaccine 07/25/13 Recorded pneumococcal 23-valent vaccine 4 05/13/11 Given pneumococcal 23-valent vaccine 06/24/07 Recorded Measles/Mumps/Rubella Virus Vaccine 11/22/99 Recor ded Measles/Mumps/Rubella Virus Vaccine 03/13/99 Recor ded tetanus-diphtheria toxoids (Td) 01/31/99 Recorded 1Admin Note: vis given 04/08/11 2Admin Note: VIS 09/15/11 3Admin Note: vis given 10/08/2010 4Admin Note: VIS GIVEN 12/19/08 Problem List Condition Confirmation Course Effective Dates Status H ealth Status Informant Anemia Confirmed Active Asthma/COPD overlap syndrome - sees Dr. Bhavik ventura Confirmed Active Controlled substance agreement signed 06/27/2020 - TAKEN OFF CONTRACT DUE TO FENTANYL IN URINE Confirmed Active S/p gastric sleeve 06/2017 with Nehemiah Confirmed Active HTN - Hypertension Confirmed Active Hyperlipidemia Confirmed Active Ovarian mass, left Confirmed Active DEBORAH on CPAP Confirmed Active Rash Confirmed Active Severe obesity (BMI 35.0-39.9) with comorbidity Confirmed Active Synovitis of left ankle Confirmed Active Urinary incontinence Confirmed Active Varicose vein Confirmed Active Social History Social History Type Response Smoking Status Never smoker entered on: 01/25/14 Sex Sex Representation Female (finding) Implantable Device List Procedure Provider Procedure Date Device Type Site Bone Graft Calcaneal Pranav Jackson MD 07/29/21 Unknown Foot Left Device Identifier Serial Number Lot or Batch Number Manufacturing Date Expiration Date Distinct Identification Code MRI Safety Implantable Status Assigning Authority Unknown [id number] Unknown Unknown 02/10/23 Unknown Unknown Active Unk nown Procedure Provider Procedure Date Device Type Site Fusion/Arthrodesis Ankle Pranav Jackson MD 06/04/20 Unk nown Foot Right Device Identifier Serial Number Lot or Batch Number Manufacturing Date Expiration Date Distinct Identification Code MRI Safety Implantable Status Assigning Authority Unknown [id number] Unknown Unknown 09/10/21 Unknown Unknown Active Unkn own Cardiology * Event Display: Non BH Cardiovascular Results Authored Date: * Event Display: Cardiovascular Result Scanned Authored Date: * Event Display: Cardiovascular Result Scanned Authored Date: Laboratory * Event Display: Non BH Lab Results Authored Date: Cardiology Consult note * Event Display: Consult Note Cardiology Authored Date: * Event Display: Consult Note Cardiology Authored Date: * Event Display: Consult Note Cardiology Authored Date: Radiology * Event Display: X-Ray Abdomen, Non- BH Authored Date: * Event Display: X-Ray Chest, Non- BH Authored Date: * Event Display: IR Special Procedures, Non-BH Authored Date: * Event Display: IR Special Procedures Authored Date: * Event Display: Ultrasound Lower Extremity, Non-BH Authored Date: * Event Display: X-Ray Chest, Non- BH Authored Date: * Event Display: MRI Spine, Non- BH Authored Date: * Event Display: MRI Spine, Non- BH Authored Date: * Event Display: X-Ray Shoulder, Non- BH Authored Date: * Event Display: X-Ray Shoulder, Non- BH Authored Date: * Event Display: X-Ray Shoulder, Non- BH Authored Date: * Event Display: MRI Spine, Non- BH Authored Date: * Event Display: MRI Spine, Non- BH Authored Date: US Lower extremity * Event Display: Ultrasound Lower Extremity Authored Date: Patient Care team information Care Team Personnel Name: Julianne Roque RN Position: S RN Member Role: Primary Care Nurse Name: Winsome Martinez Position: [facility] Outreach Member Role: Lifetime Consulting Physician Name: Malachi Riggs RN Position: [facility] RN Member Role: Primary Care Nurse Name: Joy Farrell RN Position: [facility] RN Member Role: Primary Care Nurse Name: Komal Iraheta RN Position: [facility] RN Member Role: Primary Care Nurse Name: Keily Lopez MD Position: [facility] Physician - Primary Care Member Role: PCP Address: [address] [place] [address] Telecom: Care Team Related Persons Name: MARTINEZ Serna [employer]AT[employer]IN [employer] DRIVER Name: LILY KATZ Name: JOSEFINA REHMAN Insurance Providers [facility]or [facility] Information #: 1 Payer: [facility] Member Number: NA Policy Number: NA Group Number: NA
--- OUTSIDE RECORDS SUMMARY | 2024-06-14 10:27 | XMS_ITS | Clinical Summary ---
Author Organization [address] [place] [address] Address [address] [place] [address] Phone Care Team Providers Care Glue Spreading Machine Operator Name Role Phone Gretchen Butterfield MD Primary [...] Hiatal hernia 09/17/2016 Thoracic back pain 05/22/2016 Encounters Date Type Department Care Team Description 05/16/2024 4:00 PM EST Office Visit Bariatric Surgery - [address] [place] [address] Leticia Cerna MD Class 2 severe obesity due to excess calories with serious comorbidity and body mass index (BMI) of 36.0 to 36.9 in adult (CMS/[facility]) (Primary Dx); Postoperative intestinal malabsorption from Last 3 Months Surgical History Surgery Date Site/Laterality Comments SECTION PROCEDURE: HISTORICAL DELIVERY BACK SURGERY PROCEDURE: HISTORICAL BACK SURGERY BARIATRIC SURGERY 06/19/2017 PROCEDURE: MD LAPS GSTRC RSTRICTIV PX LONGITUDINAL GASTRECTOMY OTHER SURGICAL HISTORY 06/19/2017 PROCEDURE: MD LAPS RPR PARAESPHGL HRNA INCL FUNDPLSTY W/O MESH HYSTERECTOMY PROCEDURE: HISTORICAL HYSTERECTOMY ANKLE SURGERY Bilateral PROCEDURE: HISTORICAL ANKLE SURGERY; COMMENT: arthroscopy w/debridement of ankle ligament CARPAL TUNNEL RELEASE Bilateral PROCEDURE: HISTORICAL CARPAL TUNNEL REL ELBOW SURGERY Bilateral PROCEDURE: HISTORICAL ELBOW SURGERY; COMMENT: ulnar nerve release Medical History Medical History Date Comments Diabetes mellitus type 2, uncomplicated 01/16/2017 DX:Diabetes mellitus type 2, uncomplicated (HCC); COMMENT: 05/2017 no medications Hypertension 01/16/2017 DX:Hypertension [...] Sign Reading Time Taken Comments Blood Pressure 141/90 05/16/2024 4:00 PM EST Pulse 69 05/16/2024 4:00 PM EST Temperature - - Respiratory Rate - - Oxygen Saturation - - Inhaled Oxygen Concentration - - Weight 97.4 kg (214 lb 12.8 oz) 05/16/2024 4:00 PM EST Height 162.6 cm (5' 4 ) 05/16/2024 4:00 PM EST Body Mass Index 36.87 05/16/2024 4:00 PM EST Plan of Treatment Upcoming Encounters Date Type Department Care Team (Late st Contact Info) Description 07/14/2024 8:[address] [facility] Xray [address] [place] [phone] 07/14/2024 8:45 AM EDT Office Visit Bariatric Surgery - [place] [address] [facility] [address] [place] [phone] Leticia Cerna MD 175 [facility] [address] [place] [address] Health Maintenance Due Date Last Done Comments Breast Cancer Screening 1969 Diabetes: Annual Foot Exam 07/21/1979 Diabetes: Annual Retina Eye Exam 07/21/1979 Cervical Cancer Screening: Pap Smear 1990 Zoster Vaccines (1 of 2) 07/21/2019 Diabetes: Annual GFR (Glomerular Filtration Rate) 08/14/2021 08/14/2020 Depression Screening 02/22/2022 HIV Screening 02/22/2022 Hepatitis C Screening 02/22/2022 Social Influencers of Health Screening 02/22/2022 Diabetes: Annual Urine Albumin-Creatinine Ratio (uACR) 02/28/2022 Diabetes: Blood Sugar Control Test (HGBA1C) 02/28/2022 08/14/2020 Hypertension/CHF/CAD Annual BMP Blood Test 02/28/2022 08/14/2020 COVID-19 Vaccine ( season) 2023 Cholesterol Screening (Lipid Panel) 08/14/2025 08/14/2020 Colorectal Cancer Screening: FIT-DNA (Cologuard) 09/21/2026 09/22/2023, 09/22/2023 DTaP,Tdap,and Td Vaccines (6 - Td or Tdap) 09/07/2033 09/08/2023, 10/14/2011, 08/07/2010, Additional history exists MMR Vaccines Aged Out 11/22/1999, 03/13/1999 No lo nger eligible based on patient's age to complete this topic Hepatitis B Vaccines Completed 06/26/2014, 08/25/2013, 07/25/2013 Pneumococcal Vaccine: 50+ Years Completed 09/08/2023, 05/13/2011, 06/24/2007 Pneumococcal Vaccine: Pediatrics (0 to 5 Years) and At-Risk Patients (6 to 64 Years) Completed 09/08/2023, 05/13/2011, 06/24/2007 Influenza Vaccine Completed 12/18/2023, , 01/17/2021, Additional history exists HIB Vaccines Aged Out No longer eligi [...] to complete this topic RSV Immunization Patients Under 20 months Aged Out No longer eligible based on [...] Results * Annual BMP Blood Test (08/14/2020) Pathologist [facility] Annual BMP Blood Test abstracted us Historical Provider HEALTH MAINTENANCE Final Result * Hemoglobin A1c (08/14/2020) Pathologist [facility] Hemoglobin A1C 5.9 <=6.5 % Blood Venous blood specimen / Unknown us Historical Provider LAB BLOOD ORDERABLES Griselda l Result * (ABNORMAL) Lipid panel (08/14/2020) LDL/HDL Ratio 5(A) 0 - 4 Triglycerides 167(A) 0 - 150 mg/dL Cholesterol 209(A) 0 - 200 mg/dL HDL 45 >=40 mg/dL LDL Cholesterol 131(A) 0 - 100 mg/dL Blood Venous blood specimen / Unknown us Historical Provider LAB BLOOD ORDERABLES Griselda reza Result from Last 3 Months or Most Recently Relevant to Health Maintenance Insurance [facility] MEDICAID ADVANTAGE [address] [place] [address] Care Teams Glue Spreading Machine Operator Relationship Specialty Start Date End Date Gretchen Butterfield MD [address] [place] [phone] PCP - General 10/31/19
--- OUTSIDE RECORDS SUMMARY | 2024-06-14 10:27 | XMS_ITS | Clinical Summary ---
Author Organization [facility] Address [address] [place] [address] Care Team Providers Care Spinner Frame Name Role Phone Unavailable Primary Care Provider [...] Health Maintenance Due Date Last Done Comments Anxiety Screening 1969 Dental Perio Charting 1969 Dental Prophy 1969 Diabetes Screening 1969 HPV Screening 1969 Hepatitis C Screening 1969 Lipid Screening 1969 Pap + HPV 1969 Tobacco Screening 1969 HIV Screening 1984 Hypertension Screening (#1) 07/21/1987 Cervical Cancer Screening 1990 Pap Smear 1990 Breast Cancer Screening (Mammogram) 2009 CT Colonography 2014 Colonoscopy 2014 Flexible Sigmoidoscopy 2014 Imm-Zoster, Recombinant (1 of 2) 07/21/2019 [id number] ( - 2023- season) 2023 Imm-Influenza (#1) 2023 02/23/2020, 1 , 12/01/2018, Additional history exists Alcohol and Drug Screen 03/16/2024 Depression Annual Screen 03/16/2024 FIT/gFOBT 09/21/2024 09/22/2023 Dental BW 10/08/2024 10/07/2023 Dental Examination 10/08/2024 [...] Most Recently Relevant to Health Maintenance Insurance [place]
--- OUTSIDE RECORDS SUMMARY | 2024-06-14 10:27 | XMS_ITS | Continuity of Care Document ---
Author Organization [facility] Address [address] [place] [address]- Care Team Providers Care B2B Sales Representative Name Role Phone Keily Lopez MD Primary Care Physician [phone] [place] [facility] [place] 05/09/24 - 06/11/[address] [address] Attending Physician: Not on Staff, Attending MD Encounter Type: Pre-Outpt Allergies, Adverse Reactions, Alerts Substance Criticality Severity [...] Confirmed Active Asthma/COPD overlap syndrome - sees pulm, Dr. Gutierres Confirmed Active Controlled substance agreement signed 06/27/2020 [...] MRI Safety Implantable Status Assigning Authority Unknown [id number] Unknown Unknown 02/10/23 Unknown Unknown Active Unk nown Procedure Provider Procedure Date Device Type Site Fusion/Arthrodesis Ankle Pranav Jackson MD 06/04/20 Unk nown Foot Right Device Identifier Serial Number Lot or Batch Number Manufacturing Date Expiration Date Distinct Identification Code MRI Safety Implantable Status Assigning Authority Unknown [id number] Unknown Unknown 09/10/21 Unknown Unknown Active Unkn own Patient Care team information Care Team Personnel Name: Julianne Roque RN Position: [facility] RN Member Role: Primary Care Nurse Name: Winsome Martinez Position: [facility] Outreach Member Role: Lifetime Consulting Physician Name: Malachi Riggs RN Position: [facility] RN Member Role: Primary Care Nurse Name: Joy Farrell RN Position: [facility] RN Member Role: Primary Care Nurse Name: Komal Iraheta RN Position: [facility] RN Member Role: Primary Care Nurse Name: Keily Lopez MD Position: [facility] Physician - Primary Care Member Role: PCP Address: [address] [place] [address] Telecom: Care Team Related Persons Name: MARTINEZ Serna WOOD FUEL PELLETIZER Name: LILY KATZ Name: JOSEFINA REHMAN Insurance Providers Guarantor name: ELROY REHMAN Health Plan Information #: 1 Payer: [facility] Member Number: [id number] Policy Number: NA Group Number: [id number] Health Plan Information #: 2 Payer: [facility] Member Number: [id number] Policy Number: NA Group Number: [id number]
== END 2024-06-14 11:25 | disposition home or self-care (01) ==
LOC: HO.RHES 09:21
PROVIDERS: PCP Internal Medicine; Visit Provider Internal Medicine Rheumatology
DX: M06.9 Rheumatoid arthritis, unspecified (principal); M47.812 Spondylosis without myelopathy or radiculopathy, cervical region
CPT/HCPCS: 99214; G2211

== ENCOUNTER → 2024-06-14 09:20 | Outpatient (BNVA) | payer OTHER, SELFPAY | PROVIDERS: PCP Internal Medicine; Visit Provider Internal Medicine Rheumatology | DX: M06.9 Rheumatoid arthritis, unspecified (principal); M47.812 Spondylosis without myelopathy or radiculopathy, cervical region | CPT/HCPCS: 99212 ==

== ENCOUNTER 2024-09-01 08:45 | Outpatient (AMB) | payer OTHER, SELFPAY ==
--- NOTE | 2024-09-01 08:55 | A.OFFVIS_ITS ---
Vital Signs 09/01/24 09:00 Height 5 ft 4 in Weight 186 lb BMI 31.9 BP 115/74 Blood Pressure Location Rt brachial Position Sitting Pulse 85 Pulse Source Pulse Oximeter Pulse Oximetry (%) 98 Oxygen Delivery Method Room Air Intake Visit Reasons: 3 Months Intake Note: Patient presents for three month follow up. Kindergarten Teacher Required: Yes Kindergarten Teacher Language: Rehabilitation Aide Services: Kindergarten Teacher Present Kindergarten Teacher Name: Kamla Jiménez Information Interpreted: non-clinical & clinical Allergies alosetron (Lotronex) Allergy (Mild, Verified 09/01/24 08:59) Headache and difficulty breathing Sulfa Drugs Allergy (Mild, Uncoded 06/14/24 10:19) Headache and difficulty breathing HPI HPI 3 Months: Details: Video electrical contacts adjuster use. [place]ican-speaking patient. She tolerated MTX without side effects. She only took it for 1 month. MS 30min to 1 hour SHe has pain in wrists and hands She had benefit with prednisone course PFSH Medical History (Updated 09/01/24 @ 09:41 by Kvng Velásquez MD) Palpitation Arthritis Allergies Dyspnea Varicose vein of leg Limb swelling Hiatal hernia Chronic cough Asthma-COPD overlap syndrome Chest pain Pleuritic chest pain Asthma Cough DEBORAH (obstructive sleep apnea) Insomnia Surgical History Hx of hysterectomy History of back surgery History of throat surgery Hx of knee surgery History of carpal tunnel release of both wrists Family History Mother Pacemaker Diabetes Father No problems noted. Social History Patient Tobacco Use Status: Never used Tobacco Physical Exam Vital Signs: Last Vital Signs Pulse 85 09/01/24 09:00 BP 115/74 09/01/24 09:00 Pulse Ox 98 09/01/24 09:00 Oxygen Delivery Method Room Air 09/01/24 09:00 BMI result Body Mass Index 31.9 Const Other: General: Comfortable CVS: RRR Respiratory: clear to auscultation bilaterally. Good respiratory effort Skin: Hyperpigmented erythematous skin under bilateral breast folds and medial thighs MSK: She has synovitis left 2-3rd MCPs. Tender to palpate left MCPs and PIPs. Tender left wrist and bilateral shoulders. Shoulder abduction 120 degrees bilateral. She is able to internally rotate and externally rotate both shoulders. She is able to externally rotate bilateral hips but it is limited. Limited knee flexion 45 degrees bilateral. Bilateral ankle tenderness. Left MTP synovitis present. Bilateral MTP tenderness. Assessment & Plan Assessment & Plan (1) Rheumatoid arthritis: Comment: Inflammatory arthritis is not controlled. We discussed treatment with another course of prednisone with longer taper. She was only on methotrexate for 1 month and did not have repeat labs. She tolerated methotrexate. We also discussed treatment with methotrexate. It takes 2-3 months for full benefit. She developed fungal rash underneath her breasts and groin region secondary to drug side effect from zepbound. I discussed the importance of contacting PCP for management due to her being on immunosuppressive state and leading to disseminated fungal disease if current infection is not treated. Patient understands risks and importance for treatment. Rheumatology history: Seropositive +RF 40.8. Anti CCP. MTX 08/2024- Code(s): M06.9 - Rheumatoid arthritis, unspecified Category: Medical Qualifiers: Rheumatoid arthritis location: multiple sites Rheumatoid factor presence: with rheumatoid factor Qualified Code(s): M05.79 - Rheumatoid arthritis with rheumatoid factor of multiple sites without organ or systems involvement Plan: Start methotrexate 12.5 mg once weekly. Start folic acid 1 mg daily Prednisone course prescribed with taper Contact PCP for management of fungal rash Avoid oral NSAIDs while on prednisone Return to clinic in 3 months Orders: Orders Complete Blood Count Man Dif 1 Month M19.90 - Unspecified osteoarthritis, unspecified site Aspartate Amino Transferase 1 Month M19.90 - Unspecified osteoarthritis, unspecified site Creatinine 1 Month M19.90 - Unspecified osteoarthritis, unspecified site C Reactive Protein 1 Month M19.90 - Unspecified osteoarthritis, unspecified site Alanine Aminotransferase Today M06.9 - Rheumatoid arthritis, unspecified, M19.90 - Unspecified osteoarthritis, unspecified site Aspartate Amino Transferase Today M06.9 - Rheumatoid arthritis, unspecified, M19.90 - Unspecified osteoarthritis, unspecified site C Reactive Protein Today M06.9 - Rheumatoid arthritis, unspecified, M19.90 - Unspecified osteoarthritis, unspecified site Alanine Aminotransferase 1 Month M19.90 - Unspecified osteoarthritis, unspecified site Erythrocyte Sedimentation Rate 1 Month M19.90 - Unspecified osteoarthritis, unspecified site Complete Blood Count Man Dif Today M06.9 - Rheumatoid arthritis, unspecified, M19.90 - Unspecified osteoarthritis, unspecified site Creatinine Today M06.9 - Rheumatoid arthritis, unspecified, M19.90 - Unspecified osteoarthritis, unspecified site Erythrocyte Sedimentation Rate Today M06.9 - Rheumatoid arthritis, unspecified, M19.90 - Unspecified osteoarthritis, unspecified site Medications: Changed From prednisone Take 4 tablets daily 1 week, 3 tablets daily 1 week, 2 tablet daily 1 week, 1 tablet daily 1 week. Take prednisone with food. 5 mg PO DIRECTED 70 tabs 0RF To prednisone Take 4 tablets daily 2 week, 3 tablets daily 2 week, 2 tablet daily 2 week, 1 tablet daily 2 week. Take prednisone with food. 5 mg PO DIRECTED 140 tabs 0RF Refilled methotrexate sodium 12.5 mg (5 x 2.5 mg) PO QWEEK 20 tabs 0RF 4 weeks Coding Level of Care Code Est Pt Level 4 (16647) Complex EM visit Add On G2211 Diagnoses Rheumatoid arthritis involving multiple sites with positive rheumatoid factor M05.79 Rheumatoid arthritis location: multiple sites Rheumatoid factor presence: with rheumatoid factor
[2024-09-01 09:00] VITALS: BP 115/74; PULSE 85; O2SAT 98; BMI 31.9
--- OUTSIDE RECORDS SUMMARY | 2024-09-01 09:10 | XMS_ITS | Clinical Summary ---
Author Organization [address] [place] [address] Address [address] [place] [address] Phone Care Team Providers Care Chief Of Internal Medicine Name Role Phone Gretchen Butterfield MD Primary [...] 10/06/2017 Depression 01/16/2017 Diabetes mellitus type 2, un complicated ([facility] V24, [facility] V28) 01/16/2017 Overview (02/16/2024): 05/2017 no medications Hyperlipidemia 01/16/2017 Hypertension 01/16/2017 Migraine 01/16/2017 Dysphagia 12/31/2016 Acid reflux disease 12/31/2016 Asthma 10/30/2016 Obstructive sleep apnea syndrome 10/30/2016 Seasonal allergic rhinitis 10/30/2016 Asthma-chronic obstructive p ulmonary disease overlap syndrome ([facility] V24, [facility] V28) 09/17/2016 Hiatal hernia 09/17/2016 Thoracic back pain 05/22/2016 Surgical History Surgery Date Site/Laterality Comments SECTION PROCEDURE: HISTORICAL DELIVERY BACK SURGERY PROCEDURE: HISTORICAL BACK SURGERY BARIATRIC SURGERY 06/19/2017 PROCEDURE: [place] LAPS GSTRC RSTRICTIV PX LONGITUDINAL GASTRECTOMY OTHER SURGICAL HISTORY 06/19/2017 PROCEDURE: [place] LAPS RPR PARAESPHGL HRNA INCL FUNDPLSTY W/O MESH HYSTERECTOMY PROCEDURE: HISTORICAL HYSTERECTOMY ANKLE SURGERY Bilateral PROCEDURE: HISTORICAL ANKLE SURGERY; COMMENT: arthroscopy w/debridement of ankle ligament CARPAL TUNNEL RELEASE Bilateral PROCEDURE: HISTORICAL CARPAL TUNNEL REL ELBOW SURGERY Bilateral PROCEDURE: HISTORICAL ELBOW SURGERY; COMMENT: ulnar nerve release Medical History Medical History Date Comments Diabetes mellitus type 2, uncomplicated ([facility] V24, [facility] V28) 01/16/2017 DX:Diabetes mellitus type 2, uncomplicated ([facility]); COMMENT: 05/2017 no medications Hypertension 01/16/2017 DX:Hypertension Depression 01/16/2017 DX:Depression Hyperlipidemia 01/16/2017 DX:Hyperlipidemi a Migraine 01/16/2017 DX:Migraine History of bariatric surgery 12/02/2017 DX: History of bariatric surgery; COMMENT: 06/2017 sleeve Asthma-chronic obstructive p ulmonary disease overlap syndrome ([facility] V24, [facility] V28) 09/17/2016 DX:Asthma-chronic obstructiv e pulmonary disease overlap syndrome ([facility]) Thoracic back pain 05/22/2016 DX:Thoracic b ack [...] Care Team (Late st Contact Info) Description 09/19/2024 9:00 AM EDT Appointment [facility] Xray [address] [place] [phone] 11/22/2024 9:45 AM EDT Office Visit Bariatric Surgery - [place] 175 [facility] [address] [place] [phone] Leticia Cerna MD 175 [facility] [address] [place] [address] Health Maintenance Due Date Last Done Comments [...] age to complete this topic Meningococcal B Vaccine Aged Out No l onger eligible based on patient's age to complete [...] * Annual BMP Blood Test (08/14/2020) Pathologist [facility] Annual BMP Blood Test abstracted Historical Provider HEALTH MAINTENANCE Final Result * Hemoglobin A1c (08/14/2020) [facility] Hemoglobin A1C 5.9 <=6.5 % Blood Venous blood specimen / Unknown Historical Provider LAB BLOOD ORDERABLES Griselda l Result * (ABNORMAL) Lipid panel (08/14/2020) [facility] LDL/HDL Ratio 5(A) 0 - 4 Triglycerides 167(A) 0 - 150 mg/dL Cholesterol 209(A) 0 - 200 mg/dL HDL 45 >=40 mg/dL LDL Cholesterol 131(A) 0 - 100 mg/dL Blood Venous blood specimen / Unknown us Historical Provider LAB BLOOD ORDERABLES Griselda reza Result from Last 3 Months or Most Recently Relevant to Health Maintenance Insurance [facility] MEDICAID ADVANTAGE Care Teams Chief Of Internal Medicine Relationship Specialty Start Date End Date Gretchen Butterfield MD [address] [place] [id number] PCP - General 10/31/19
== END 2024-09-01 09:38 | disposition home or self-care (01) ==
PROVIDERS: PCP Internal Medicine; Visit Provider Internal Medicine Rheumatology
DX: M05.79 Rheumatoid arthritis with rheumatoid factor of multiple sites without organ or systems involvement (principal)
CPT/HCPCS: 99214; G2211

== ENCOUNTER 2024-09-01 08:45 | Outpatient (REF) | payer OTHER, SELFPAY ==
[2024-09-01 17:40] LABS: Baso%MD 0.6 %; Eos%MD 2.7 %; Hematocrit 39.8 % (37.0-47.0); Hemoglobin 12.2 g/dl (12.0-16.0); IG%MD 0.2 %; Mean Corpuscular HGB Conc 30.7 g/dl (31.0-35.0); Mean Corpuscular Hemoglobin 23.4 pg (27.0-33.0); Mean Corpuscular Volume 76.4 fL (80.0-98.0); Mean Platelet Volume 9.7 fL (9.4-12.3); Mono%MD 5.5 %; Platelet Count 393 X10*3/uL (160-400); Red Blood Count 5.21 X10*6/uL (4.20-5.50); Red Cell Distribution Width 19.4 % (11.0-16.0); White Blood Count 6.6 X10*3/uL (4.8-10.8)
[2024-09-01 17:59] LABS: Alanine Aminotransferase 12 U/L (0-31); Aspartate Amino Transferase 22 U/L (5-31); C Reactive Protein < 0.10 mg/dL (< or = 0.50); Estimated Glomerular Filt Rate > 60
[2024-09-01 18:30] LABS: Erythrocyte Sedimentation Rate 18 MM/HR (0-20)
[2024-09-01 21:44] LABS: Eosinophils Absolute Manual 0.1 X10*3/uL (0.0-0.4); Eosinophils Percent Manual 2 % (0-4); Lymphocytes Absolute Manual 2.4 X10*3/uL (1.2-4.9); Lymphocytes Percent Manual 37 % (20-40); Monocytes Absolute Manual 0.6 X10*3/uL (0.1-1.2); Monocytes Percent Manual 9 % (2-11); Neutrophils Percent Manual 52 % (45-73)
[2024-09-01 21:46] LABS: Band Neutrophils Percent 0 % (3-5); Neutrophils Absolute Manual 3.4 X10*3/uL (2.0-8.3); Platelet Estimate NORMAL (NORMAL); Platelet Morphology Comment NORMAL; RBC Morphology NORMAL
== END 2024-09-01 08:46 | disposition home or self-care (01) ==
LOC: HO.HKASLDS 08:45
PROVIDERS: PCP Internal Medicine; Visit Provider Internal Medicine Rheumatology
DX: M06.9 Rheumatoid arthritis, unspecified (principal); M19.90 Unspecified osteoarthritis, unspecified site; Z79.631 Long term (current) use of antimetabolite agent
CPT/HCPCS: 36415; 82565; 84450; 84460; 85007; 85027; 85652; 86140; 99212

== ENCOUNTER 2024-10-04 09:34 | Outpatient (AMB) | payer OTHER, SELFPAY ==
[2024-10-04 09:47] VITALS: BP 100/68; PULSE 83; O2SAT 100; BMI 31.2
--- NOTE | 2024-10-04 09:47 | MHC.OFFVIS ---
Vital Signs 10/04/24 09:47 Height 5 ft 4 in Weight 181 lb 14.102 oz BMI 31.2 BP 100/68 Blood Pressure Location Lt brachial Position Sitting Pulse 83 Pulse Source Pulse Oximeter Pulse Oximetry (%) 100 Oxygen Delivery Method Room Air Intake Visit Reasons: Asthma Allergies alosetron (Lotronex) Allergy (Mild, Verified 10/04/24 09:59) Headache and difficulty breathing Sulfa Drugs Allergy (Mild, Uncoded 06/14/24 10:19) Headache and difficulty breathing HPI Comments Details: The patient is a 54 y/o woman with a history of asthma in addition to obstructive sleep apnea. Her asthma had been stable for several years period, but, more recently started to worsen. She has been having to use her inhalers now regularly and also has been using her short-acting beta agonist between 4 and 6 times a day. The only new exposures that she does have cockroaches in her apartment. She says she has multiple them. Her been trying to get rid of them with sprays. She has been having more wheezing. At this point she does have wheezing on examination and 11/20/2020 the patient is here for a pulmonary follow-up visit. The patient is a 50-year-old woman with a known history of asthma COPD overlap syndrome. Since we last spoke the patient has been having increasing cough. The cough is dry in nature. Moderate severity. She has also noticed increased shortness of breath. She did follow-up with network account manager and she is scheduled to undergo a stress test. In the meantime she is also healing from a left wrist surgery. He is also still struggling with her dyspnea. I did review her CT scan of the chest that she had back in June 2020 PE protocol. No evidence of any pulmonary emboli and no evidence of any interstitial lung disease or pulmonary nodules. The patient does have a hiatal hernia and does have a history of gastric sleeve or bariatric surgery. 09/22/2022 the patient is here for a pulmonary follow-up visit. The patient is no better. She does not feel like Dupixent is helping her. She would like to stop at this time. Will go ahead and request a discontinuation at this time. She does continue to use her respiratory medications. She feels like a lot of her triggers have to do with her current home environment where she is exposed to pests in addition to mold. She was open to get a letter from me regarding her worsening symptoms in view of her environment. I did recommend we do allergy testing to see if she has any of those allergies in the she does then we can provide with objective data about her allergic reactions. The patient also had a sleep study demonstrating no evidence of sleep apnea. She was also not hypoxic with the lowest pulse ox noted to be 90%. She is wondering about oxygen with activity. We did briefly take her for a walking oximetry and the patient maintain a pulse ox of 98%. Explained to the patient that she does not qualify for oxygen. She does describe symptoms of dizziness and vertigo. I did reassure her that her symptoms of dizziness and vertigo and not related to any underlying hypoxia. 03/18/2023 the patient is here for a pulmonary follow-up visit. She was sick a few weeks ago. She still not better. Still complaining of cough shortness of breath. [id number] severity. She did go to the ER but she left after several hours of waiting. She did continue to use her respiratory medicines. Overall she is feeling little better. She still having headaches in the morning. Still feeling daytime drowsiness. Will go ahead and perform an overnight oximetry to assess her nocturnal oxygen. She may benefit from oxygen. She will continue with current respiratory therapy and prescription will be sent to her pharmacy. 06/17/2023 the patient is here for pulmonary follow-up visit. Overall, the patient is doing well. She is having hard time sleeping though. She had been doing well on the Ambien which has been helpful for her. However she has not been able to get filled. I will send to the pharmacy. She knows to take holidays from the medication. The patient does respond well to the Ambien as it helps her with her sleep hygiene. She did have multiple sleep studies demonstrating no evidence of any sleep apnea which is reassuring. More recently she did have an overnight oximetry demonstrating that she does not require oxygen either. Explained to the patient that these are reassuring findings. The patient also continues to work closely with her bariatric surgeon. She is having some abdominal issues in underlying reflux disease and difficulty swallowing. She will call them to make sure. She understands if the symptoms worsen she could result in worsening respiratory symptoms from pharyngeal or laryngeal penetration and could worsen her respiratory symptoms. Regarding her asthma, she seems to be well-controlled on the Dulera although she needs to make sure she has other medications at the pharmacy. No recent imaging studies to review. 12/18/2023 the patient is here for a pulmonary follow-up visit. Overall the patient is doing well from a respiratory status. Although she does complaint of significant daytime drowsiness. Her [place] score is worse at 14/24. She falls asleep all the time. She also has headaches in the morning. The patient has had multiple home sleep studies without any clear evidence of sleep apnea. Although they appear to be an accurate. She has had a diagnosis of sleep apnea in the past and had a CPAP in the past. I do believe that she is unable to perform proper home sleep studies and she needs to have an in-lab study. She is also having palpitations and will be helpful to have the telemetry component to assess for any cardiac arrhythmias. She is also complaining of significant arthritis symptoms. They have been limiting her activities daily living. I do believe that a rheumatology evaluation will be helpful. The patient continues use her respiratory medicine as prescribed. She will receive the flu shot today. Will plan to order in-lab sleep study and she can follow-up with us specially his abnormal. 10/04/2024 the patient is here for pulmonary follow-up visit. Overall she is doing okay. She still continues have difficulty sleeping. We did review her last sleep study which was reassuring just with fragmented sleep. She needs a sleep aid more than anything. No significant sleep apnea noted. Was a good study otherwise. The patient has been losing significant amount of weight on a GLP 1 inhibitor. Seems to be tolerating well although she feels dizzy at times. We did talk about malnourishment. We did look at her blood work that appeared that she had low protein levels. She will be following up soon with her primary care. In the meantime she can try some meclizine for her vertigo. Respiratory xiong the patient is doing well on the current respiratory regimen. [facility] Medical History (Updated 10/04/24 @ 12:50 by Kain Gutierres MD) Palpitation Arthritis Allergies Dyspnea Varicose vein of leg Limb swelling Hiatal hernia Chronic cough Asthma-COPD overlap syndrome Chest pain Pleuritic chest pain Asthma Cough DEBORAH (obstructive sleep apnea) Insomnia Surgical History Hx of hysterectomy History of back surgery History of throat surgery Hx of knee surgery History of carpal tunnel release of both wrists Family History Mother Pacemaker Diabetes Father No problems noted. Social History Patient Tobacco Use Status: Never used Tobacco Review of Systems Const Reports body aches, Reports daytime sleepiness, Reports difficulty sleeping, Reports headache(s), Reports lethargy, Denies night sweats and Reports snoring ENT Denies change in voice, Reports vertigo, Reports dizziness, Reports headache(s), Denies lip swelling, Denies mouth pain, Reports nasal congestion, Reports nasal discharge and Denies tongue swelling Card Reports chest pain and Reports dyspnea on exertion Resp Reports cough, Denies hemoptysis, Denies excessive phlegm production, Reports dyspnea on exertion, Reports snoring and Reports wheezing GI Reports as per HPI and Reports abdominal pain Musc Reports as per HPI, Reports abnormal gait, Reports myalgias and Reports arthralgias Neuro Denies Neuro-related abnormal movements, Reports abnormal gait, Reports vertigo, Reports dizziness and Reports headache(s) Psych Denies no additional complaints Michael/Lymph Denies easy bleeding and Denies lymphadenopathy Aller/Immun Denies lip swelling, Denies tongue swelling and Reports wheezing Physical Exam Vital Signs: Last Vital Signs Pulse 83 10/04/24 09:47 BP 100/68 10/04/24 09:47 Pulse Ox 100 10/04/24 09:47 Oxygen Delivery Method Room Air 10/04/24 09:47 BMI result Body Mass Index 31.2 Const General: alert Neck Neck: Yes normal visual inspection, Yes full ROM and Yes no lymphadenopathy Chest Chest palpation & inspection: normal inspection of the chest Resp Effort & Inspection: normal respiratory effort Auscultation: diminished lung sounds Cardio Rate: regular rate Rhythm: regular rhythm Heart sounds: S1 normal heart sound present and S2 normal heart sound present GI Inspection: Yes other ( Dressings are clean, dry and intact) Auscultation: normal bowel sounds Skin General skin exam: rashes and/or lesions noted Extrem General: No clubbing, No cyanosis and Yes edema Assessment & Plan Assessment & Plan (1) Asthma: Code(s): J45.909 - Unspecified asthma, uncomplicated Category: Medical Qualifiers: Asthma complication type: uncomplicated Asthma persistence: persistent Asthma severity: moderate Qualified Code(s): J45.40 - Moderate persistent asthma, uncomplicated (2) Chronic cough: Code(s): R05 - Cough Category: Medical (3) Hiatal hernia: Comment: s/p hernia repair Code(s): K44.9 - Diaphragmatic hernia without obstruction or gangrene Category: Medical (4) Insomnia: Code(s): G47.00 - Insomnia, unspecified Category: Medical Qualifiers: Insomnia type: primary Qualified Code(s): F51.01 - Primary insomnia (5) Dyspnea: Code(s): R06.00 - Dyspnea, unspecified Category: Medical Qualifiers: Dyspnea type: dyspnea on exertion Qualified Code(s): R06.09 - Other forms of dyspnea (6) DEBORAH (obstructive sleep apnea): Comment: Still symptomatic. EPWORTH is 03/08. Home PSG w/o DEBORAH Code(s): G47.33 - Obstructive sleep apnea (adult) (pediatric) Category: Medical (7) Rheumatoid arthritis: Code(s): M06.9 - Rheumatoid arthritis, unspecified Category: Medical Qualifiers: Rheumatoid arthritis location: multiple sites Rheumatoid factor presence: with rheumatoid factor Qualified Code(s): M05.79 - Rheumatoid arthritis with rheumatoid factor of multiple sites without organ or systems involvement Plan Stopped Ambien Start Trazodone as needed for sleep Continue Dulera two hundred two puffs twice a day Continue Spiriva Continue singular continue anti histanines Reflux diet Follow-up in 6-8 months Medications: New vit no.[id number] 28 mg iron- 800 mcg (Classic ) 1 tab PO DAILY 30 tabs 6RF trazodone 50 mg PO BEDTIME PRN 30 tabs 11RF sleep 30 days meclizine 25 mg PO DAILY PRN 30 tabs 0RF motion sickness 30 days Discontinued roflumilast Discontinued Reason: Doctor's Order 500 mcg PO DAILY 90 days 90 tabs 3RF Coding Level of Care Code Est Pt Level 4 (00518) Diagnoses Moderate persistent asthma without complication J45.40 Asthma complication type: uncomplicated Asthma persistence: persistent Asthma severity: moderate Chronic cough R05 Hiatal hernia K44.9 Primary insomnia F51.01 Insomnia type: primary Dyspnea on exertion R06.09 Dyspnea type: dyspnea on exertion DEBORAH (obstructive sleep apnea) G47.33 Rheumatoid arthritis involving multiple sites with positive rheumatoid factor M05.79 Rheumatoid arthritis location: multiple sites Rheumatoid factor presence: with rheumatoid factor Time Spent (min) 16
--- OUTSIDE RECORDS SUMMARY | 2024-10-04 10:11 | XMS_ITS | Clinical Summary ---
Author Organization [facility] Address [address] [place] [address] Care Team Providers Care Casing Splitter Name Role Phone Unavailable Primary Care Provider [...] 2014 Imm-Zoster, Recombinant (1 of 2) 07/21/2019 Flf-EXRTH-23 ( - season) 2023 Alcohol and Drug Screen 03/16/2024 Depression Annual Screen 03/16/2024 FIT/gFOBT 09/21/2024 09/22/2023 Dental BW 10/08/2024 10/07/2023 Dental Examination 10/08/2024 10/07/2023 Imm-Influenza (#1) 2024 02/23/2020, 1 , 12/01/2018, Additional history exists Colorectal Cancer Screening 09/21/2026 Fecal DNA 09/21/2026 09/22/2023, 09/22/2023 Dental FMX/Pano 10/08/2028 10/07/2023 Imm-DTaP/Tdap/Td (5 - Td or Tdap) 09/07/2033 09/08/2023, 10/14/2011, 08/07/2010, Additional history exists Imm-Hepatitis B Completed 06/26/2014, 08/14, 07/25/2013 Imm-Pneumococcal 50+ Completed 09/08/2023, 05/13/2011, 06/24/2007 Cervical Ablation/Cold-Knife Conization Discontinued Cervical Cryotherapy Discontinued [...] Most Recently Relevant to Health Maintenance Insurance [place]
--- OUTSIDE RECORDS SUMMARY | 2024-10-04 10:11 | XMS_ITS | Data Portability ---
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 Reassurance provided that the nerve is functioning within a normal range. Her main complaint is shoulder pain. Shoulder evaluation will be arranged. Follow-up in hand pod on an as-needed basis. [email or web address] Not available 08/21/2023 10:07:39 Plan of Treatment Reminders Order Date Submit Date Provider Last Modified By Organization Details Last Modified Time Details Appointments NEW PATIENT 20 2024 10:50A M Julio Miles MD Not available Not available Not available Lab None recorde d. Referral physica l therapi st referra l - General non-imp act strengt hening and flexibi lity program with proprio ceptive trainin g. Bilater al knees 2024 025 [email or web address] Not available 09/28/2024 13:30:47 Procedures None recorde d. Surgeries None recorde d. Imaging XR, knee, 4 or more view - rm 215 bilater al knees 4v 2024 025 [email or web address], [address], [address], [place], [address], 09/28/2024 13:30:47 XR, shoulde r, 2 or more view - rm 217 left shoulde r 4 view 2023 024 [facility], [address], [address], [place], [address], 10/21/2023 10:07:31 MRI, shoulde r, w/o contras t - ? rct 2023 024 [facility] ([facility]), [address], [place], [address], 10/21/2023 10:07:31 Medication Orders Celebre x 200 mg capsule 2024 025 [facility], [address] [place] [address], [address], 08/24/2024 13:24:00 Voltare n Arthrit is Pain 1 % topical gel 2024 025 [facility], [address] [place] [address], [address], 08/24/2024 13:24:29 Patient TargetsNo targets recorded. Patient InstructionsNo instructions recorded. Reason for Referral Physical Therapist Referral for Bilateral arthritis of knees General non-impact strengthening and flexibility program with proprioceptive training. Bilateral knees Referring Physician: Leonid Traylor, Orthopedic Surgery, Encounter Date: 08/24/2024 Results Created Date Observation Date Name Description Value Unit Range Abnormal Flag Note LastModifiedBy Organization Detail LastModifiedTime 08/05/19 24 08/04/2023 elect romyo gram + nerve condu ction study No observ ation record ed. [email or web address] [facility] [address], [place], [address], 08/05/2023 10:18:26 09/23/19 24 09/23/2023 XR, shoul reba, 2 or more view http:/ [email or web address] ?Encry pted=s hAaTro YD8dLq bEUv6g %2BXZw aYqtaq 0bqfl% 2Fg9IQ a4ajBk vP9nXo QUaueC m3YtLR FvZlgJ JJ8mAn HZtai3 7h0423 AC0Kpb nqBVKb eUC8mr 84%3D INTERFACE [facility] [address], [place], [address], 09/23/2023 09:13:16 09/23/19 24 09/23/2023 XR, pipe britton, 2 or more view http:/ [email or web address] ?Encry pted=s hAaTro YD8dLq bEUv6g %2BXZw aYqtaq 0bqfl% 2Fg9IQ a4ajBk vP9nXo QUaueC m3YtLR FvZlgJ JJ8mAn HZtai3 4s6334 AC0Kpb nqBVKb eUC8mr 84%3D INTERFACE [facility] [address], [place], [address], 09/23/2023 09:13:17 10/05/19 24 10/02/2023 MRI, pipe britton, w/o contr ast [facility] Access ion Number : [id number] na[address] Name: Anahi Howard Record Number : [id number] Date of : 1970 Date of Exam: 2023 Referr ing Physic keri: [facility] [address], [address] [place] [address] Exam: MR Should er (C-) CPT 81514 - Left Room Descri ption: [facility] GE Pion 3T Should er MRI left Clinic al Histor y: Pain Findin gs: Mild acromi oclavi cular osteoa rthrit is. Narrow ed medial outlet The supras pinatu s tendon is intact . The infras pinatu s tendon is intact . The teres minor tendon is intact . The subsca pulari s tendon is intact . The long head of the biceps tendon is intact . Interm ediate T2 signal within a thicke gina inferi or glenoh umeral ligame nt Impres marilee: No eviden ce of rotato r cuff tear. Mild acromi oclavi cular osteoa rthrit is with mild narrow ing of the medial outlet . Interm ediate T2 signal within a thicke gina inferi or glenoh umeral ligame nt. Findin g can be seen with synovi tis and adhesi ve capsul itis. Electr onical ly Signed By: Vaughn Burgess MD [facility] ([facility]) [address], [place], [address], 10/06/2023 16:18:16 11/13/19 24 12/19/2020 imagi ng/di agnos tic resul t No observ ation record ed. [email or web address] Not Available 10/16 23:25:34 11/13/19 24 01/23/2020 imagi ng/di agnos tic resul t No observ ation record ed. [email or web address] Not Available 10/16 23:25:48 11/13/19 24 06/29/2020 imagi ng/di agnos tic resul t No observ ation record ed. [email or web address] Not Available 10/16 23:26:08 11/13/19 24 04/24/2022 imagi ng/di agnos tic resul t No observ ation record ed. [email or web address] Not Available 10/16 23:27:04 11/13/19 24 07/18/2021 imagi ng/di agnos tic resul t No observ ation record ed. [email or web address] Not Available 10/16 23:27:25 11/13/19 24 10/18/2021 imagi ng/di agnos tic resul t No observ ation record ed. [email or web address] Not Available 10/16 23:27:32 11/13/19 24 08/27/2021 imagi ng/di agnos tic resul t No observ ation record ed. [email or web address] Not Available 10/16 23:27:34 11/17/19 24 11/14/2023 MRI, cervi magali spine , w/o contr ast [facility] Access ion Number : [id number] na[address] Name: Anahi Howard Record Number : [id number] Date of : 1970 Date of Exam: 2023 Referr ing Physic keri: [facility] [address], [address] [facility] [place] [address] Exam: MR Cervic al Spine (C-) CPT 56640 Room Descri ption: [facility] Siem Espr 1.5 HISTOR Y: Cervic algia. Bilate ral arm pain and parest hesias . TECHNI QUE: Multip lanar multis equenc e MRI of the cervic al spine withou t contra st. COMPAR ELIZABETH: 11/22/19 23 FINDIN GS: No new sublux ation is noted. The cervic al verteb ral bodies remain normal in height . No marrow or parasp inal edema on the sagitt al STIR images . Mild height of C5-C6. Anteri or margin al spurri ng is noted at this level. Mild multil evel uncove rtebra l spurri ng. The visual ized imaging aide ior crania l fossa struct ures and cervic omedul gregg juncti on are unrema rkable . The cervic al cord is normal in signal . The parasp inal soft tissue s and visual ized verteb ral artery flow voids are unrema rkable . The proxim al left psychology intern al caroti d artery follow s a medial course . C2-C3: Broad centra l disc protru marilee. Mild facet arthro sis. Mild centra l canal narrow ing. No forami nal stenos is. No signif icant interv al change . C3-C4: Mild right uncove rtebra l spurri ng and bilate ral facet arthro sis. No centra l canal stenos is. Mild right and minima l left forami nal narrow ing. No signif icant change . C4-C5: A left parace ntral disc protru marilee is again noted with mild centra l canal narrow ing. Mild facet arthro sis. Minima l uncove rtebra l spurri ng. No signif icant forami nal narrow ing or overal l change . C5-C6: Mild concen tric disc-o steoph yte comple x with mild centra l canal narrow ing. Flatte reginald of the ventra l margin of the cord is again noted withou t imping ement. Modera te right and mild-m oderat e left forami nal narrow ing. No signif icant change . C6-C7: Statistical Programmer Analyst ior disc-o steoph yte comple x asymme tric to the right imaging aide iorly with mild centra l canal narrow ing. No signif icant forami nal narrow ing. No signif icant change . C7-T1: No centra l canal or forami nal stenos is. Mild right facet arthro sis. IMPRES MARILEE: Degene rative change s of the cervic al spine withou t cord compre ssion or cord signal abnorm ality. Multil evel forami nal stenos es are simila r and remain most pronou nced at C5-C6. No suspec leah nerve root imping ement Electr onical ly Signed By: Randy Pacheco MD [email or web address] [facility] ([facility]) [address], [place], [address], 11/19/2023 08:00:05 08/25/19 25 08/24/2024 XR, knee, 4 or more view http:/ [email or web address] ?Encry pted=s hAaTro YD8dLq bEUv6g %2BXZw aYqtaq 0bqfl% 2Fg9IQ a4ajBk vP9nXo QUaueC m3YtLR FvZlgJ JJ8mAn HZtai3 3v0223 AC0Kla H%2BCV KCmKiQ trMwF INTERFACE [facility] [address] [facility] [address], [place], [address], 08/24/2024 09:53:23 08/25/19 25 08/24/2024 XR, knee, 4 or more view http:/ [email or web address] ?Encry pted=s hAaTro YD8dLq bEUv6g %2BXZw aYqtaq 0bqfl% 2Fg9IQ a4ajBk vP9nXo QUaueC m3YtLR FvZlgJ JJ8mAn HZtai3 4l8107 AC0Kla H%2BCV KCmKiQ trMwF INTERFACE [facility] [address], [place], [address], 08/24/2024 09:53:25 Result Notes Documentation Provider Name and Address Organization Details Recorded Time Xr, Shoulder, 2 Or More View : [email or web address] crypted=qsSlIuwKQ1eSsaVKc5w %7JPGlqDjtxe5thcz%2Kk5OVd0w oGwiF5nUcJYzbjCq5KvAWHqMntY IK0rSrYQlum57j7243JE3MxrbqS WPmwCX4ag20%3D Not Available [facility] 09/23/2023 09:13:16 Xr, Shoulder, 2 Or More View : [email or web address] crypted=hsSuSqbCK4fSlrKEk4y %1TCGrdOdfku9jxqq%4Mv0INx3i fUwkM4dDjUZfugHa0OxWYWrRksH IM8iErOKcmg15b9968TM6DnzszD GLaoKG6re94%3D Not Available [facility] 09/23/2023 09:13:18 Mri, Shoulder, W/o Contrast : [facility] Accession Number: [id number] Patient Name: Anahi Howard Date of : 1970 Date of Exam: 10-02-2023 Referring Physician: Yuan Villalba [facility] ([facility]) [address], [address] [place] [address] Exam: MR Shoulder (C-) CPT 55875 - Left Room Description: [facility] 3T Shoulder MRI left Clinical History: Pain Findings: Mild acromioclavicular osteoarthritis. Narrowed medial outlet The supraspinatus tendon is intact . The infraspinatus tendon is intact . The teres minor tendon is intact . The subscapularis tendon is intact . The long head of the biceps tendon is intact . Intermediate T2 signal within a thickened inferior glenohumeral ligament Impression: No evidence of rotator cuff tear. Mild acromioclavicular osteoarthritis with mild narrowing of the medial outlet. Intermediate T2 signal within a thickened inferior glenohumeral ligament. Finding can be seen with synovitis and adhesive capsulitis. Electronically Signed By: Flynn Lester I[place], [place] - [facility] 10/06/2023 16:18:16 Mri, Cervical Spine, W/o Contrast : [facility] Accession Number: [id number] Patient Name: Anahi Howard Date of : 1970 Date of Exam: 11-14-2023 Referring Physician: Yuan Villalba [facility] ([facility]) [address] [place] [address] Exam: MR Cervical Spine (C-) CPT 20984 Room Description: [facility] Espr 1.5 HISTORY: Cervicalgia. Bilateral arm pain and paresthesias. TECHNIQUE: Multiplanar multisequence MRI of the cervical spine without contrast. COMPARISON: 11/21/2022 FINDINGS: No new subluxation is noted. The cervical vertebral bodies remain normal in height. No marrow or paraspinal edema on the sagittal STIR images. Mild height of C5-C6. Anterior marginal spurring is noted at this level. Mild multilevel uncovertebral spurring. The visualized posterior cranial fossa structures and cervicomedullary junction are unremarkable. The cervical cord is normal in signal. The paraspinal soft tissues and visualized vertebral artery flow voids are unremarkable. The proximal left internal carotid artery follows a medial course. C2-C3: Broad central disc protrusion. Mild facet arthrosis. Mild central canal narrowing. No foraminal stenosis. No significant interval change. C3-C4: Mild right uncovertebral spurring and bilateral facet arthrosis. No central canal stenosis. Mild right and minimal left foraminal narrowing. No significant change. C4-C5: A left paracentral disc protrusion is again noted with mild central canal narrowing. Mild facet arthrosis. Minimal uncovertebral spurring. No significant foraminal narrowing or overall change. C5-C6: Mild concentric disc-osteophyte complex with mild central canal narrowing. Flattening of the ventral margin of the cord is again noted without impingement. Moderate right and mild-moderate left foraminal narrowing. No significant change. C6-C7: Posterior disc-osteophyte complex asymmetric to the right posteriorly with mild central canal narrowing. No significant foraminal narrowing. No significant change. C7-T1: No central canal or foraminal stenosis. Mild right facet arthrosis. IMPRESSION: Degenerative changes of the cervical spine without cord compression or cord signal abnormality. Multilevel foraminal stenoses are similar and remain most pronounced at C5-C6. No suspected nerve root impingement Electronically Signed By: Randy Villalba PA-C [address], [place], [address], [facility] - [facility] 11/19/2023 08:00:05 Xr, Knee, 4 Or More View : [email or web address] crypted=lbBvEjeJB9aZihQWb5c %2HJOhgYzauy0nauv%7Rr5PEh4h kBoaN5bPqOVrajYs0ZmKYBoUueT XW2wQhQOfmb66f3746MC4GkoI%2 BCVKCmKiQtrMwF Not Available [facility] 08/24/2024 09:53:24 Xr, Knee, 4 Or More View : [email or web address] crypted=cqHlBooFM3oMjkBPm3x %9EAMyhRegcy2vihm%9Wd0JIe9v xHceK9iRpSVwxzKm8GmTXGyFxeT LY8zFcQDoba74a2437HD6RryS%2 BCVKCmKiQtrMwF Not Available [facility] 08/24/2024 09:53:25 Problems Name Problem SNOMED Code Status Onset Date Resolution Date Notes Provider Name and Address Organization Details Recorded Time No complaints 567626635 Active Status : 'A'; Not Available [facility] 4 09:10:41 Cervical arthritis 214910675 Active 2023 RIVERA balderas [place] - [facility] 4 09:29:07 Problem Notes None recorded. Medical Equipment None Reported. Allergies Allergen ID Allergen Name Allergen Category Reaction Reaction Severity Criticality Documentation Date Start Date Code Code System Note Provider Name and Address Organization Details Recorded Time 351987 Lovenox medicatio n Not available Not available Not available 06/10/2023 27707 6 RxNorm LESLIE DE LEON ROD balderas - [facility] 4 09:03:59 69898 Substance with sulfonami de structure and antibacte rial mechanism of action (substanc e) medicatio n Not available Not available Not available 05/18/20232018 52829 8003 SNOMED Not Available [facility] 4 10:54:08 Medications Name Sig Start Date Stop Date Status Note LastModified by Organization Details LastModified Time p-4 pain formulation w/o bupivacaine versatile Apply 1-3 grams to the affected area 3-4 times daily legs active Not Available Not Available No t Available biotene dry mouth liqd active Not Available Not Available N ot Available d3 50 mcg (2000 ut) tabs active Not Available Not Available Not Available freestyle 28g lancets active Not Available Not Available Not Available freestyle lite test strips active Not Available Not Available Not Available vitamin d3 50 mcg (2000 ut) tabs active Not Available Not Available Not Available freestyle lite test strips strp active Not Available Not Available Not Available freestyle lancets misc active Not Available Not Available Not Available celecoxib 200 mg capsule Take 1 capsule every day by oral route. active Not Available Not Available No t Available atorvastati n 80 mg tablet TAKE 1 TABLET BY MOUTH DAILY active Not Available Not Available No t Available acetaminoph en 325 mg tablet TAKE 2 TABLETS BY MOUTH EVERY 6 HOURS NEEDED FOR PAIN active Not Available Not Available No t Available doxycycline hyclate 100 mg capsule TAKE 1 CAPSULE BY MOUTH TWICE DAILY FOR 10 DAYS active Not Available Not Available No t Available ipratropium 0.5 mg-albutero l 3 mg (2.5 mg base)/3 mL nebulizatio n soln USE 3 ML VIA NEBULIZER FOUR TIMES DAILY NEEDED FOR WHEEZING active Not Available Not Available No t Available clindamycin HCl 300 mg capsule TAKE ONE CAPSULE BY MOUTH THREE TIMES DAILY active Not Available Not Available No t Available albuterol sulfate 2.5 mg/3 mL (0.083 %) solution for nebulizatio n active Not Available Not Available Not Available trazodone 50 mg tablet active Not Available Not Available Not Available cetirizine 10 mg tablet TAKE 1 TABLET BY MOUTH DAILY active Not Available Not Available No t Available meloxicam 15 mg tablet active Not Available Not Available Not Available sucralfate 1 gram tablet active Not Available Not Available Not Available famotidine 40 mg tablet TAKE 1 TABLET BY MOUTH DAILY active Not Available Not Available No t Available prednisone 20 mg tablet TAKE 2 TABLETS BY MOUTH DAILY FOR 5 DAYS THEN 1 TABLET BY MOUTH DAILY FOR 5 DAYS active Not Available Not Available No t Available sumatriptan 50 mg tablet TAKE 1 TABLET BY MOUTH DAILY NEEDED FOR MIGRAINE HEADACHE. MAY REPEAT DOSE AFTER 2 HOURS UP TO A. MAXIMUM OF 2 active Not Available Not Available No t Available diltiazem 120 mg tablet active Not Available Not Available Not Available phenazopyri dine 100 mg tablet active Not Available Not Available Not Available ferrous sulfate 325 mg (65 mg iron) tablet active Not Available Not Available Not Available pseudoephed rine-guaife nesin ER 80-700 mg tablet,exte nded release Percocet 5-325MG Tablet 11/11 completed Statu s: 'Disc ontin ued'; Not Available Not Available Not Available losartan 25 mg tablet active Not Available Not Available No t Available omeprazole 20 mg capsule,del ayed release active Not Available Not Available Not Available montelukast 10 mg tablet TAKE 1 TABLET BY MOUTH DAILY active Not Available Not Available No t Available hydroxyzine HCl 25 mg tablet active Not Available Not Available Not Available diltiazem ER 60 mg capsule,ext ended release 12 hr TAKE 1 CAPSULE BY MOUTH DAILY active Not Available Not Available No t Available clobetasol 0.05 % topical ointment active Not Available Not Available Not Available ibuprofen 600 mg tablet TAKE 1 TABLET BY MOUTH EVERY 6 HOURS NEEDED FOR MILD PAIN active Not Available Not Available No t Available zolpidem 10 mg tablet active Not Available Not Available No t Available hydroxyzine HCl 10 mg tablet active Not Available Not Available Not Available Ventolin HFA 90 mcg/actuati on aerosol inhaler INHALE 2 PUFFS EVERY 4 HOURS SHORTNESS OF BREATH active Not Available Not Available No t Available buspirone 15 mg tablet active Not Available Not Available Not Available oxycodone 5 mg tablet active Not Available Not Available No t Available duloxetine 30 mg capsule,del ayed release active Not Available Not Available Not Available duloxetine 60 mg capsule,del ayed release active Not Available Not Available Not Available levalbutero l HFA 45 mcg/actuati on aerosol inhaler INHALE 2 PUFFS BY MOUTH EVERY 6 HOURS NEEDED FOR SHORTNESS OF BREATH OR WHEEZING active Not Available Not Available No t Available DermOtic Oil 0.01 % ear drops INSTILL 5 DROPS IN BOTH EARS TWICE DAILY FOR 14 DAYS active Not Available Not Available No t Available Advair HFA Advair HFA 230-21MCG /ACT Aerosol 2022 active Statu s: 'Curr ent'; Not Available Not Available Not Available FreeStyle Lite Strips DIRECTED TWICE DAILY active Not Available Not Available No t Available oxycodone 10 mg tablet TAKE 1 TABLET BY MOUTH EVERY 8 HOURS NEEDED FOR ACUTE SEVERE PAIN ONLY active Not Available Not Available No t Available diclofenac 1 % topical gel APPLY 2 GRAMS TO THE AFFECTED AREA(S) BY TOPICAL ROUTE 4 TIMES PER DAY active Not Available Not Available No t Available melatonin 5 mg tablet active Not Available Not Available No t Available Eye Itch Relief 0.025 % (0.035 %) drops active Not Available Not Available Not Available Vitamin D3 50 mcg (2,000 unit) tablet TAKE 1 TABLET BY MOUTH DAILY active Not Available Not Available No t Available oxycodone HCl-oxycodo ne-ASA 1 tab q [address] WHILE ON THIS MEDICATIO N 06/10 completed Statu s: 'Disc ontin ued'; Not Available Not Available Not Available Dulera 200 mcg-5 mcg/actuati on HFA aerosol inhaler INHALE 2 PUFFS BY MOUTH TWICE DAILY active Not Available Not Available No t Available roflumilast 500 mcg tablet active Not Available Not Available Not Available lidocaine 5 % topical ointment APPLY 1-3G (INCHES) TO THE AFFECTED AREA 3-4 TIMES A DAY active Not Available Not Available No t Available Myrbetriq 25 mg tablet,exte nded release active Not Available Not Available Not Available Spiriva Respimat 2.5 mcg/actuati on solution for inhalation INHALE 2 PUFFS BY MOUTH EVERY DAY active Not Available Not Available No t Available naloxone 4 mg/actuatio n nasal spray CALL 911. SPR CONTENTS OF ONE SPRAYER (0.1ML) INTO ONE NOSTRIL. REPEAT IN 2-3 MIN IF SYMPTOMS OF OPIOID EMERGENCY PERSIST, ALTERNATE NOSTRILS active Not Available Not Available No t Available Dupixent 300 mg/2 mL subcutaneou s pen injector active Not Available Not Available Not Available Gemtesa 75 mg tablet active Not Available Not Available No t Available Zepbound 2.5 mg/0.5 mL subcutaneou s pen injector ADMINISTE R 2.5 MG UNDER THE SKIN WEEKLY active Not Available Not Available No t Available Vitals Date Recorded Body height Body mass index (BMI) Body weight Provider Name and Address Organization Details Last Updated DateTime 08/21/2023 162.56 cm 34.3 kg/m2 89056.47 g LESLIE DE LEON [facility] 08/21/2023 09:52:08 Date Recorded Body height Body mass index (BMI) Body weight Provider Name and Address Organization Details Last Updated DateTime 08/24/2024 162.56 cm 34.3 kg/m2 12653.47 g Meet Brown [facility] 08/24/2024 09:45:23 Date Recorded Body height Body mass index (BMI) Body weight Provider Name and Address Organization Details Last Updated DateTime 09/09/2024 162.56 cm 34.3 kg/m2 09876.47 g Beverly Nagel [facility] 09/09/2024 10:34:17 Date Recorded Body height Body mass index (BMI) Body weight Provider Name and Address Organization Details Last Updated DateTime 09/23/2023 162.56 cm 34.3 kg/m2 45816.47 g Yuan Villalba PA-C [address], [place], [address], [facility] 09/23/2023 09:03:56 Date Recorded Body height Body mass index (BMI) Body weight Provider Name and Address Organization Details Last Updated DateTime 11/10/2023 162.56 cm 34.3 kg/m2 76313.47 g VENICE MCLEAN [facility] 11/10/2023 11:20:00 Social History None recorded. Functional Status None recorded. Mental Status None recorded. Family History Nothing Reported. Medical History Condition Response Allergies/Hayfever N Coronary Artery Disease N Anxiety/Depression N Emphysema N Thyroid Problems N COPD N Pacemaker N Anemia N Kidney/Bladder Problems N Vascular Disease N Heart Attack (LA) N Gastrointestinal Disease N Diabetes N Autoimmune disease N Bleeding Disorder N Orthotics N Arthritis Y Seizures/Epilepsy N Blood Clot N AIDS/HIV N Congestive Heart Failure (CHF) N Acid Reflux (GERD) N Cancer N Stroke N Asthma N Peripheral Vascular Disease N Sleep Apnea Y Hepatitis N Heart Disease N Rheumatoid Arthritis N Arrhythmia N Pulmonary Embolism N Fibromyalgia N Hypertension N Osteoporosis N Gynecological HistoryNo gynecological history recorded. Obstetrics History GPAL:G 0 P 0 0 0 0 Past Encounters Encounter ID Performer Location Encounter Start Date Encounter Closed Date Diagnosis/Indication Diagnosis SNOMED-CT Code Diagnosis ICD10 Code Diagnosis Note [id number] MD Goran Brewer [address] [place] [address] 06/10/2023 08:45:49 06/30/2023 12:45:01 Carpal tunnel syndrome of left wrist [id number] G56.02 [id number] MD Goran Brewer [address] [place] [address] 08/21/2023 09:43:28 09/22/2023 07:26:47 Carpal tunnel syndrome of left wrist [id number] G56.02 [id number] ZEINAB Duff [address]nd [address] [place] [address] 09/23/2023 08:55:26 10/21/2023 10:07:30 Pain of left shoulder joint [id number] M25.512 Full thick ness rotator cuff tear [id number] M75.936 [id number] ZEINAB Duff [address]nd [address] [place] [address] 11/10/2023 10:48:01 12/03/2023 11:26:47 Cervical radiculopathy [id number] M54.12 [id number] ZEINAB Roberson 2nd [address] [place] [address] 08/24/2024 09:24:26 09/28/2024 13:30:46 Pain of bilateral knee regions [id number] M25.561 M25.562 Bilateral arthritis of knees [id number] M17.0 [id number] ZEINAB Abraham [address] [place] [address] 09/09/2024 09:38:40 09/22/2024 08:52:57 Bilateral carpal tunnel syndrome [id number] G56.03 Health Concerns Section Related Observation LastModified by Organization Detai ls LastModified Time None Recorded Concern Status LastModified by Organization Details LastModified Time None Recorded Advance Directives Directive None Recorded Payers Insurance Date Sequence Insurance Name Policy Number Policy Anguiano Covered Member ID Anguiano Member ID Guarantor Name 10/04/[address] [place] [address] (MEDICAID HMO) [id number] Anahi Howard [id number] Anahi Howard Notes Date Note Type Note Provider Name and Address Organization Details Recorded Time 08/21/2023 text/html Patient is a 52-year-old female well-known to me having undergone a prior left carpal tunnel release in 2020 and a first dorsal compartment release sometime after the carpal tunnel release. She was last seen 1 year ago with complaints of left hand numbness and is seen today with similar complaints of numbness in the left hand. An EMG performed 2 years ago at [facility] was a normal study with no evidence of nerve compression at the carpal tunnel, cubital tunnel, C-spine. EMG was performed recently; she is here to review the results of that study. Her main complaint today is right shoulder pain. Kristin Blackburn MD [address], [place], [address], [facility] 08/21/2023 10:07:58 09/23/2023 text/html I am seeing this patient under the supervision of Dr. Manzano who was available but did not see the patient.HPI: Ms. Howard presents examination rule out shoulder. 53-year-old cmu-Egqzawr-olgolnsc female, jnimp-xjis-tlpgbblj, who is experiencing left shoulder pain since she fell roughly a year ago. A video casting carrier was used today for communication. She is not employed outside her home, states a year ago she fell a left shoulder and since then she's had pain and difficulty raising her using the arm away from the body or overhead. She has weakness with any strengthening over. She denies any paresthesias or paralysis. She denies any instability.PFMSH and ROS has been reviewed, updated, and is located in the patient s chart.PHYSICAL EXAMINATION: The patient is well appearing and in no apparent distress. Alert and oriented x 3. Gait is symmetric.Right shoulder demonstrates: Full range of motion, 5/5 strength including rotator cuff and periscapular musculature. Good muscle bulk and strength without atrophy. No evidence of instability of the shoulder. Negative impingement signs. Negative AC joint tenderness.Left shoulder demonstrates: Guarded and limited active range of motion. However, passive/active assisted and shaded forward elevation to 170 degrees, externally rotates 60, internal rotates to L1. Moderate bursal irritability, with positive impingment test, No AC joint irritability. Good strength when firing the cuff to external rotation. Significant pain with resistive horizontal elevation today. No anterior instabitly noted with negative apprehension sign.Cervical ROM normal without radicular symptomsNo erythema, no redness, no warmth. Peripheral, vascular, lymphatic examination, skin, neurological, coordination, reflexes, sensation are within normal limits.X-RAY REPORT: X-rays were ordered, obtained and reviewed today at [facility]. Four views of the right shoulder demonstrate type III acromion, AC joint demonstrates moderate arthritic changes, glenohumeral joint is well preserved.IMPRESSION: Concerns for left shoulder rotator cuff tearPLAN: Reviewed and discussed symptoms and appropriate care. We'll send her for MRI and see her back in follow-up to discuss findings and appropriate treatment options. Yuan Villalba PA-C [address] [facility] [address], [place], [address], [facility] 09/23/2023 10:20:25 11/10/2023 text/html I am seeing the patient today under the supervision of Dr. Lowery who was available but who did not see the patient.Ms. Howard returns in follow-up to discuss MRI findings. MRI interpreted independently and reviewed at length today, fortunately it demonstrates no evidence of rotator cuff tear. There is tendinopathy signal only. Upon further examination and discussion, she has significant symptoms through the neck with numbness and tingling down the arm.Past family, medical, social history and review of systems has been reviewed, updated and is located in the patient s chart.Examination: Shoulder can be brought to near full arc of motion with only mild irritation. No focal cuff deficits appreciable. Deltoid is intact.Cervical range of motion was irritable which resulted in feelings of numbness and tingling down the left arm and into the hand.Impression: Concerns for cervical in origin symptoms to the left upper extremityPlan: Discussed proper course of care to include MRI and EMG left upper extremity. PT will begin for the neck. Yuan Villalba PA-C [email or web address], [place], [address], [facility] 11/10/2023 12:20:47 08/24/2024 text/html I am seeing the patient today under the supervision of Dr. Manzano who was available but who did not see the patient. HPI: Anahi presents for initial orthopedic evaluation regarding bilateral knee pain. She reports a chronic history of pain worse with climbing stairs and at rest. Has difficulty getting up from sitting. Past family, medical, social history and review of systems has been reviewed, updated and signed by me and is located in the patient's chart. Examination: The patient is well appearing and in no apparent distress. Alert and oriented x3. Gait is asymmetric. Both knees with slight varus alignment. Slight flexion contracture. Reduced range of motion. Tenderness to palpation. Both lower extremities neurovascular intact. X-rays ordered, obtained and independently reviewed today at [facility]. Advanced grade 4 end-stage osteoarthritis bilateral knees with micv-yx-vauf contact primarily involving the medial compartment. Evidence of tricompartmental disease. Impression: Severe end-stage bilateral knee arthritis in a 54-year-old female Plan: Have both surgical and nonsurgical treatment options discussed with the patient. She is quite disabled by her knee arthritis. Recommendation is a consultation with our total joint team to discuss knee arthroplasty. She is requesting crutches for ambulatory assistance. She is prescribed [place] crutches at this time. We have given her a prescription for physical therapy, Celebrex and Voltaren gel. Leonid Traylor PA-C [address], [place], [address], [facility] 09/24/2024 07:12:04 09/09/2024 text/html I am seeing this patient under the supervision of Dr. Escoto who was available but who did not see the patient. HPI: Patient is a 52-year-old Jordanian-speaking female status post prior left carpal tunnel release in 2020 and a first dorsal compartment release sometime after the carpal tunnel release with Dr. Blackburn. She was last seen [address] Blackburn with complaints of left hand numbness and is seen today with similar complaints of numbness in bilateral hands. An EMG performed 2 years ago at [facility] was a normal study with no evidence of nerve compression at the carpal tunnel, cubital tunnel, C-spine. Another EMG was performed 1 year ago which was also normal. Interpreting service was utilized for the visit today. Past family, medical, social history and review of systems has been reviewed, updated and is located in the patient's chart. Examination: The patient is well appearing, alert and oriented x3 and in no acute distress. Inspection of the bilateral hand and wrist reveals no edema, atrophy, erythema, ecchymoses or deformity. Skin is intact, no open wounds. Full movement of the forearm, wrist and digits bilaterally. Intact median and ulnar innervated intrinsics. Intact extrinsic wrist and digit flexors and extensors. Intact sensation of median, ulnar and radial nerve distributions. Good capillary refill. Nontender about the wrist, hand, and digits bilaterally. Median nerve compression test positive bilaterally. X-rays ordered, obtained and reviewed independently today at [facility]: None indicated or performed today. Impression: Possible recurrent left CTS, possible right CTS Plan: I discussed my findings and the situation with the patient. We discussed potential treatment options at this time including wrist bracing, cortisone injection, and surgical intervention. Patient is not interested in cortisone injections today. Will obtain EMGs of bilateral upper extremities to check for carpal tunnel syndrome. She was provided with prescription for bilateral wrist lacer braces to utilize in the meantime. If she changes her mind she would like to try a diagnostic/possibly therapeutic cortisone injection in the carpal tunnel she will call the office. Otherwise she will follow-up for EMG review. Patient agrees with this plan. All questions were answered. The patient has weakness and instability of their extremity which requires stabilization for this semi-rigid/rigid orthosis to improve their function. Verbal and written instructions for the use and application of this item were given. Patient was instructed that should the brace result in increased pain, decreased sensation, increased swelling or an overall worsening of their medical condition, to please contact our office immediately. Wrist lacer braces Speech recognition tack welder software was used to create portions of this document. An attempt at proofreading has been made to minimize errors. Please call for corrections. Nidia Michaels PA-C [address] [facility] [address], [place], [address], [facility] 09/09/2024 12:07:14 OBGyn Episode No OBEpisode recorded.
--- OUTSIDE RECORDS SUMMARY | 2024-10-04 10:11 | XMS_ITS | Clinical Summary ---
Author Organization [address] [place] [address] Address [address] [place] [address] Phone Care Team Providers Care Mold Finisher Name Role Phone Gretchen Butterfield MD Primary [...] 01/16/2017 Diabetes mellitus type 2, un complicated ([facility] V24, [facility] V28) 01/16/2017 Overview (02/16/2024): 05/2017 no medications Hyperlipidemia 01/16/2017 Hypertension 01/16/2017 Migraine 01/16/2017 Dysphagia 12/31/2016 Acid reflux disease 12/31/2016 Asthma 10/30/2016 Obstructive sleep apnea syndrome 10/30/2016 Seasonal allergic rhinitis 10/30/2016 Asthma-chronic obstructive p ulmonary disease overlap syndrome ([facility] V24, [facility] V28) 09/17/2016 Hiatal hernia 09/17/2016 Thoracic back pain 05/22/2016 Surgical History Surgery Date Site/Laterality Comments SECTION PROCEDURE: HISTORICAL DELIVERY BACK SURGERY PROCEDURE: HISTORICAL BACK SURGERY BARIATRIC SURGERY 06/19/2017 PROCEDURE: LA LAPS GSTRC RSTRICTIV PX LONGITUDINAL GASTRECTOMY OTHER SURGICAL HISTORY 06/19/2017 PROCEDURE: LA LAPS RPR PARAESPHGL HRNA INCL FUNDPLSTY W/O MESH HYSTERECTOMY PROCEDURE: HISTORICAL HYSTERECTOMY ANKLE SURGERY Bilateral PROCEDURE: HISTORICAL ANKLE SURGERY; COMMENT: arthroscopy w/debridement of ankle ligament CARPAL TUNNEL RELEASE Bilateral PROCEDURE: HISTORICAL CARPAL TUNNEL REL ELBOW SURGERY Bilateral PROCEDURE: HISTORICAL ELBOW SURGERY; COMMENT: ulnar nerve release Medical History Medical History Date Comments Diabetes mellitus type 2, uncomplicated ([facility] V24, [facility] V28) 01/16/2017 DX:Diabetes mellitus type 2, uncomplicated ([facility]); COMMENT: 05/2017 no medications Hypertension 01/16/2017 DX:Hypertension Depression 01/16/2017 DX:Depression Hyperlipidemia 01/16/2017 DX:Hyperlipidemi a Migraine 01/16/2017 DX:Migraine History of bariatric surgery 12/02/2017 DX: History of bariatric surgery; COMMENT: 06/2017 sleeve Asthma-chronic obstructive p ulmonary disease overlap syndrome ([facility] V24, [facility] V28) 09/17/2016 DX:Asthma-chronic obstructiv e pulmonary disease overlap syndrome ([facility]) Thoracic back pain 05/22/2016 DX:Thoracic b ack [...] Care Team (Late st Contact Info) Description 10/24/2024 9:45 AM EDT Appointment [facility] [address] [place] [id number] 11/22/2024 9:45 AM EDT Office Visit Bariatric Surgery - [place] [address] [facility] [address] [place] [address] Leticia Cerna MD [address] [facility] [address] [place] [address] Health Maintenance Due Date Last Done Comments Breast Cancer Screening 1969 Diabetes: Annual Foot Exam 07/21/1979 Diabetes: Annual Retina Eye Exam 07/21/1979 Cervical Cancer Screening: Pap Smear 1990 Zoster Vaccines (1 of 2) 07/21/2019 Diabetes: Annual GFR (Glomerular Filtration Rate) 08/14/2021 08/14/2020 HIV Screening 02/22/2022 Hepatitis C Screening 02/22/2022 Social Influencers of Health Screening 02/22/2022 Diabetes: Annual Urine Albumin-Creatinine Ratio (uACR) 02/28/2022 Diabetes: Blood Sugar Control Test (HGBA1C) 02/28/2022 08/14/2020 Hypertension/CHF/CAD Annual BMP Blood Test 02/28/2022 08/14/2020 COVID-19 Vaccine ( season) 2023 Depression Screening 03/16/2024 Influenza Vaccine (#1) 2024 , 02/18/2022, 01/17/2021, Additional history exists Cholesterol Screening (Lipid Panel) 08/14/2025 08/14/2020 Colorectal Cancer Screening: FIT-DNA (Cologuard) 09/21/2026 09/22/2023, 09/22/2023 DTaP,Tdap,and Td Vaccines (6 - Td or Tdap) 09/07/2033 09/08/2023, 10/14/2011, 08/07/2010, Additional history exists MMR Vaccines Aged Out 11/22/1999, 03/13/1999 No lo nger eligible based on patient's age to complete this topic Hepatitis B Vaccines Completed 06/26/2014, 08/25/2013, 07/25/2013 Pneumococcal Vaccine: 50+ Years Completed 09/08/2023, 05/13/2011, 06/24/2007 HIB Vaccines Aged Out No longer eligi [...] * Annual BMP Blood Test (08/14/2020) Pathologist [facility] Annual BMP Blood Test abstracted [facility] Provider HEALTH MAINTENANCE Final Result * Hemoglobin A1c (08/14/2020) [facility] Hemoglobin A1C 5.9 <=6.5 % Blood Venous blood specimen / Unknown Historical Provider LAB BLOOD ORDERABLES Griselda l Result * (ABNORMAL) Lipid panel (08/14/2020) [facility] LDL/HDL Ratio 5(A) 0 - 4 Triglycerides 167(A) 0 - 150 mg/dL Cholesterol 209(A) 0 - 200 mg/dL HDL 45 >=40 mg/dL LDL Cholesterol 131(A) 0 - 100 mg/dL Blood Venous blood specimen / Unknown Historical Provider LAB BLOOD ORDERABLES Griselda reza Result from Last 3 Months or Most Recently Relevant to Health Maintenance Insurance [employer] [place] MED[employer]VANTAGE Care Teams Mold Finisher Relationship Specialty Start Date End Date Gretchen Butterfield MD [address] [place] [phone] PCP - General 10/31/19
--- OUTSIDE RECORDS SUMMARY | 2024-10-04 10:11 | XMS_ITS | Clinical Summary ---
Author Organization [facility] Address [address] [place], [place] [id number] Phone Care Team Providers Care Certified Wellness Program Coordinator Name Role Phone Unknown, Unknown MD Primary Care Provider Moises pascual Social History Tobacco Use Types Packs/Day Years Used Date Smoking Tobacco: Never Assessed Education Answer Date Recorded Are you interested in more education? Not on yuri e 07/11/2022 Are you concerned about learning? Not on file 07/11/2022 No 07/11/2022 No 07/11/2022 Digital Access Answer Date Recorded No 08/09/2022 No 08/09/2022 No 08/09/2022 Reliable internet access at home? Not on file 08/09/2022 Device with a working camera? Not on file Comments Unknown Sex and Gender Information Value Date Recorded Sex Assigned at Female 01/22/2024 12:49 PM EST Legal Sex Female 11:45 AM EDT Gender Identity Female 01/22/2024 12:49 PM EST Sexual Orientation Not on file Plan of Treatment Health Maintenance Due Date Last Done Comments LIPID PANEL 1969 DEPRESSION SCREENING 1981 SMOKING Hx and SMOKELESS TOBACCO SCREENING 1982 HEPATITIS C SCREENING 07/21/1987 HIV ONE-TIME SCREENING (18-6 5 YEARS) 07/21/1987 PAP SMEAR 1990 MAMMOGRAM 2009 COLOGUARD 2014 COLONOSCOPY 2014 COLORECTAL CANCER SCREENING 2014 FIT TEST 2014 FOBT 2014 SIGMOIDOSCOPY 2014 VIRTUAL COLONOSCOPY 2014 PNEUMOCOCCAL VACCINES (50+ years) (2 of 2 - PCV) 07/21/2019 06/24/2007 ZOSTER VACCINES (1 of 2) 07/21/2019 Adult Td,Tdap Booster 08/07/2020 08/07/2010 , 03/12/2010, 01/31/1999 COVID-19 VACCINE (2023-2 5 season) 2023 HEPATITIS A VACCINES Aged Out No long er eligible based on patient's age to complete this topic HIB VACCINES Aged Out No longer eligi ble based on patient's age to complete this topic MENINGOCOCCAL VACCINES (ACWY) Aged Out No longer eligible based on patient's age to complete this topic MENINGOCOCCAL VACCINES (B) Aged Out N o longer eligible based on patient's age to complete this topic Medical Devices Not on file Insurance ACO PARTNERSHIP ACO BE HE[employer]Y PARTNERSHIP ACO HEALTHY PARTNERSHIP ACO HEALTHY PARTNERSHIP ACO HEALTHY PARTNERSHIP ACO HEALTHY PARTNERSHIP ACO HEALTHY PARTNERSHIP ACO HEALTHY PARTNERSHIP ACO Care Teams Certified Wellness Program Coordinator Relationship Specialty Start Date End Date Unknown, Unknown, PCP - General 03/17/18 Additional Source Comments The information contained in this document represents components of the legal health record. It is not the complete legal health record.[facility]
== END 2024-10-04 10:24 | disposition home or self-care (01) ==
LOC: HO.HPS 09:35
PROVIDERS: PCP Internal Medicine; Visit Provider Hospitalist
DX: J45.40 Moderate persistent asthma, uncomplicated (principal); R05.9 Cough, unspecified; K44.9 Diaphragmatic hernia without obstruction or gangrene; F51.01 Primary insomnia; R06.09 Other forms of dyspnea; G47.33 Obstructive sleep apnea (adult) (pediatric); M05.79 Rheumatoid arthritis with rheumatoid factor of multiple sites without organ or systems involvement
CPT/HCPCS: 99214

== ENCOUNTER 2024-10-04 09:34 | Outpatient (REF) | payer OTHER, SELFPAY ==
[2024-10-04 11:05] LABS: Baso%MD 0.6 %; Eos%MD 2.5 %; Hematocrit 39.5 % (37.0-47.0); Hemoglobin 12.3 g/dl (12.0-16.0); IG%MD 0.3 %; Lymph%MD 39.6 %; Mean Corpuscular HGB Conc 31.1 g/dl (31.0-35.0); Mean Corpuscular Hemoglobin 24.0 pg (27.0-33.0); Mean Corpuscular Volume 77.1 fL (80.0-98.0); Mono%MD 5.8 %; NRBC Abs Auto 0.000 X10*3/uL (0.0-0.012); NRBC Pct Auto 0.0 /100WBC (0.0-0.2); Neut%MD 51.2 %; Platelet Count 367 X10*3/uL (160-400); Red Blood Count 5.12 X10*6/uL (4.20-5.50); White Blood Count 6.7 X10*3/uL (4.8-10.8)
[2024-10-04 11:38] LABS: Alanine Aminotransferase 14 U/L (0-31); Aspartate Amino Transferase 18 U/L (5-31); Estimated Glomerular Filt Rate > 60
[2024-10-04 11:46] LABS: Atypical Lymph Absolute Manual 0.2 x10*3/uL; Atypical Lymphs Percent Manual 3 % (0-6); Band Neutrophils Percent 0 % (3-5); Eosinophils Absolute Manual 0.1 X10*3/uL (0.0-0.4); Eosinophils Percent Manual 2 % (0-4); Lymphocytes Absolute Manual 3.0 X10*3/uL (1.2-4.9); Lymphocytes Percent Manual 45 % (20-40); Monocytes Absolute Manual 0.3 X10*3/uL (0.1-1.2); Monocytes Percent Manual 4 % (2-11); Neutrophils Absolute Manual 3.1 X10*3/uL (2.0-8.3); Neutrophils Percent Manual 46 % (45-73)
[2024-10-04 11:48] LABS: Large Platelet PRESENT; Ovalocytes 1+ (5-14) /OIF; RBC Morphology NOTED
[2024-10-04 11:49] LABS: Acanthocytes 1+ (0-2) /OIF
== END 2024-10-04 09:35 | disposition home or self-care (01) ==
LOC: HO.LAB 09:34
PROVIDERS: PCP Internal Medicine; Visit Provider Internal Medicine Rheumatology
DX: M19.90 Unspecified osteoarthritis, unspecified site (principal); R05.9 Cough, unspecified; K44.9 Diaphragmatic hernia without obstruction or gangrene; F51.01 Primary insomnia; R06.09 Other forms of dyspnea; G47.33 Obstructive sleep apnea (adult) (pediatric); M05.79 Rheumatoid arthritis with rheumatoid factor of multiple sites without organ or systems involvement; Z79.51 Long term (current) use of inhaled steroids; Z79.60 Long term (current) use of unspecified immunomodulators and immunosuppressants
CPT/HCPCS: 36415; 82565; 84450; 84460; 85007; 85025; 85027; 85652; 86140; 99212

== ENCOUNTER 2024-12-07 08:51 | Outpatient (REF) | payer OTHER, SELFPAY ==
[2024-12-07 13:36] LABS: MANUAL DIFF FLAG NO
[2024-12-07 13:40] LABS: Hematocrit 37.3 % (37.0-47.0); Hemoglobin 11.5 g/dl (12.0-16.0); Imm Gran Abs Auto 0.02 X10*3/uL (0.00-0.03); Imm Gran Pct Auto 0.4 % (0.0-0.4); Lymphocytes Absolute Auto 1.8 X10*3/uL (1.2-4.9); Mean Corpuscular HGB Conc 30.8 g/dl (31.0-35.0); Mean Corpuscular Hemoglobin 24.1 pg (27.0-33.0); Mean Corpuscular Volume 78.2 fL (80.0-98.0); NRBC Abs Auto 0.000 X10*3/uL (0.0-0.012); NRBC Pct Auto 0.0 /100WBC (0.0-0.2); Platelet Count 349 X10*3/uL (160-400); Red Blood Count 4.77 X10*6/uL (4.20-5.50); White Blood Count 5.5 X10*3/uL (4.8-10.8)
[2024-12-07 13:50] LABS: Alanine Aminotransferase 7 U/L (0-31); Aspartate Amino Transferase 18 U/L (5-31); Estimated Glomerular Filt Rate > 60
== END 2024-12-07 08:52 | disposition home or self-care (01) ==
LOC: HO.HKASLDS 08:51
PROVIDERS: PCP Internal Medicine; Visit Provider Internal Medicine Rheumatology
DX: M05.79 Rheumatoid arthritis with rheumatoid factor of multiple sites without organ or systems involvement (principal); Z79.899 Other long term (current) drug therapy
CPT/HCPCS: 36415; 82565; 84450; 84460; 85025; 85652; 86140; 99212

== ENCOUNTER 2024-12-07 08:51 | Outpatient (AMB) | payer OTHER, SELFPAY ==
--- NOTE | 2024-12-07 09:18 | A.OFFVIS_ITS ---
Vital Signs 12/07/24 09:19 Height 5 ft 4 in Weight 174 lb 2.643 oz BMI 29.9 BP 110/70 Blood Pressure Location Lt brachial Position Sitting Pulse 77 Pulse Source Pulse Oximeter Pulse Oximetry (%) 100 Oxygen Delivery Method Room Air Intake Visit Reasons: 3 months Intake Note: Patient presents for follow up on Raynaud's, and both her knees. Patient needs refill on all medications. Room Maid Name: Suzanne [id number] Information Interpreted: non-clinical & clinical Accompanied by: Self / Same As Patient Allergies alosetron (Lotronex) Allergy (Mild, Verified 12/07/24 09:19) Headache and difficulty breathing Sulfa Drugs Allergy (Mild, Uncoded 06/14/24 10:19) Headache and difficulty breathing HPI HPI 3 months: Details: Azeri speaking patient. Video varnish mixer used. She started MTX SC 1 month ago. CUSTOM FURRIER gives it to her at home. She did not have a nurse visit. She feels well since starting SC MTX. No recent infections. Fungal infection under breast is improving. PCP referred her to Dermatology. [facility] Medical History Palpitation Arthritis Allergies Dyspnea Varicose vein of leg Limb swelling Hiatal hernia Chronic cough Asthma-COPD overlap syndrome Chest pain Pleuritic chest pain Asthma Cough DEBORAH (obstructive sleep apnea) Insomnia Surgical History Hx of hysterectomy History of back surgery History of throat surgery Hx of knee surgery History of carpal tunnel release of both wrists Family History Mother Pacemaker Diabetes Father No problems noted. Social History Patient Tobacco Use Status: Never used Tobacco Physical Exam Vital Signs: Last Vital Signs Pulse 77 12/07/24 09:19 BP 110/70 12/07/24 09:19 Pulse Ox 100 12/07/24 09:19 Oxygen Delivery Method Room Air 12/07/24 09:19 BMI result Body Mass Index 29.9 Const Other: General: Comfortable CVS: RRR Respiratory: clear to auscultation bilaterally. Good respiratory effort Skin: Hyperpigmented erythematous skin under bilateral breast folds and medial thighs MSK: She has synovitis left 2-3rd MCPs. Tender to palpate left MCPs. Shoulder abduction 120 degrees bilateral. She is able to internally rotate and externally rotate both shoulders. She is able to externally rotate bilateral hips but it is limited. Limited knee flexion 45 degrees bilateral. Bilateral ankle tenderness. No MTP tenderness Assessment & Plan Assessment & Plan (1) Rheumatoid arthritis: Comment: Inflammatory arthritis is better controlled on MTX SC. Rheumatology history: +RF 40.8. Diagnosed 04/2024. MTX 08/2024- Code(s): M06.9 - Rheumatoid arthritis, unspecified Category: Medical Qualifiers: Rheumatoid arthritis location: multiple sites Rheumatoid factor presence: with rheumatoid factor Qualified Code(s): M05.79 - Rheumatoid arthritis with rheumatoid factor of multiple sites without organ or systems involvement Plan: Increase MTX 22.5mg SC once weekly. She needs to be scheduled nurse teaching visit next Thursday Continue folic acid 1 mg daily Labs for drug monitoring on high risk medication ordered Return to clinic in 3 months Orders: Orders Complete Blood Count Auto Diff Today Z79.899 - Other penitentiary (current) drug therapy Aspartate Amino Transferase Today Z79.899 - Other watermelon inspector (current) drug therapy Alanine Aminotransferase Today Z79.899 - Other penitentiary (current) drug therapy Creatinine Today Z79.899 - Other watermelon inspector (current) drug therapy C Reactive Protein Today Z79.899 - Other watermelon inspector (current) drug therapy Erythrocyte Sedimentation Rate Today Z79.899 - Other penitentiary (current) drug therapy Medications: Changed From methotrexate sodium 20 mg (0.8 mL) subcut QWEEK 10 mL 0RF To methotrexate sodium 22.5 mg (0.9 mL) subcut QWEEK 11 mL 0RF 12 weeks Refilled folic acid 1 mg PO DAILY 90 tabs 4RF Coding Level of Care Code Est Pt Level 4 (90218) Complex EM visit Add On G2211 Diagnoses Rheumatoid arthritis involving multiple sites with positive rheumatoid factor M05.79 Rheumatoid arthritis location: multiple sites Rheumatoid factor presence: with rheumatoid factor
[2024-12-07 09:19] VITALS: BP 110/70; PULSE 77; O2SAT 100; BMI 29.9
--- OUTSIDE RECORDS SUMMARY | 2024-12-07 10:13 | XMS_ITS | Clinical Summary ---
Author Organization [facility] Address [address] [address] [place] [address] Care Team Providers Care Sap Analyst Name Role Phone Unavailable Primary Care Provider [...] 2014 Imm-Zoster, Recombinant (1 of 2) 07/21/2019 Alcohol and Drug Screen 03/16/2024 Depression Annual Screen 03/16/2024 FIT/gFOBT 09/21/2024 09/22/2023 Dental BW 10/08/2024 10/07/2023 Dental Examination 10/08/2024 10/07/2023 [id number] ( season) 2024 Imm-Influenza (#1) 2024 02/23/2020, 1 , 12/01/2018, [...] Most Recently Relevant to Health Maintenance Insurance [place]
--- OUTSIDE RECORDS SUMMARY | 2024-12-07 10:13 | XMS_ITS | Clinical Summary ---
Author Organization [facility] Address [address] [id number] Phone Care Team Providers Care Taxation Consultant Name Role Phone Unknown, Unknown MD Primary [...] HEPATITIS C SCREENING 07/21/1987 HIV ONE-TIME SCREENING (18-65 YEARS) 07/21/1987 PAP SMEAR 1990 MAMMOGRAM 2009 COLOGUARD 2014 COLONOSCOPY 2014 COLORECTAL CANCER SCREENING 2014 FIT TEST 2014 FOBT 2014 SIGMOIDOSCOPY 2014 VIRTUAL COLONOSCOPY 2014 PNEUMOCOCCAL VACCINES (50+ years) (2 of 2 - PCV) 07/21/2019 06/24/2007 ZOSTER VACCINES (1 of 2) 07/21/2019 Adult Td,Tdap Booster 08/07/2020 08/07/2010 , 03/12/2010, 01/31/1999 INFLUENZA VACCINE (#1) 2024 , 12/01/2018, 01/23/2015, Additional history exists COVID-19 VACCINE ( season) 2024 HEPATITIS A VACCINES Aged Out No long [...] topic Medical Devices Not on file Insurance [employer] Member Subscriber Plan / Payer (Ef fective 2017-Present) Name:Anahi Howard Relation to Subscriber:Self Name:Anahi Howard Payer ID:Not on file Type:Medicaid Address: [place] [id number] [employer] HE[employer] ACO [employer]CO HE[employer]CO PARTNERSHIP ACO ACO [employer] Member Subscriber Plan / Payer (Ef fective 2017-Present) Name:Anahi Howard Relation to Subscriber:Self Name:Gregory Howardmen Payer ID:Not on file Type:Medicaid Address: [place] [id number] Care Teams Taxation Consultant Relationship Specialty Start Date End Date Unknown, Unknown, PCP - General 03/17/18 Additional Source Comments The information contained in this document represents components of the legal health record. It is not the complete legal health record.[facility]
--- OUTSIDE RECORDS SUMMARY | 2024-12-07 10:13 | XMS_ITS | Encounter Summary ---
Author Organization [facility] Address [address] [place] [address] Phone Care Team Providers Care Mold Stripper Name Role Phone Unknown, Unknown Primary Care Provider Moises pascual Encounter Details Date Type Department Care Team (Latest Contact Info) Description 03/17/2018 Transcribe Orders [facility] [address] 3rd Floor, [address] [place] [address] Christie Whitman MD [address] [place] [id number] [email or web address] Abnormal electrocardiogram (Primary Dx) Social History Tobacco Use Types Packs/Day Years Used Date Smoking Tobacco: Never Assessed Comments Unknown Sex and Gender Information Value Date Recorded Sex Assigned at Female 01/22/2024 12:49 PM EST Legal Sex Female 11:45 AM EDT Gender Identity Female 01/22/2024 12:49 PM EST Sexual Orientation Not on file documented as of this encounter Plan of Treatment Scheduled Orders Name Type Priority Associated Diagnoses Orde r Schedule NC Myocardial Perfusion Pharmacologic Stress Multiple Nuclear Cardiology Routine Abnormal electrocardiogram 1 Occurrences starting 03/17/2018 until 06/16/2019 documented as of this encounter Visit Diagnoses Diagnosis Abnormal electrocardiogram- Primary Nonspecific abnormal electrocardiogram (ECG) (EKG) documented in this encounter Care Teams Mold Stripper Relationship Specialty Start Date End Date Unknown, Unknown, PCP - General 03/17/18 documented as of this encounter Additional Source Comments The information contained in this document represents components of the legal health record. It is not the complete legal health record.[facility]
--- OUTSIDE RECORDS SUMMARY | 2024-12-07 10:13 | XMS_ITS | Encounter Summary ---
Author Organization [facility] Address [address] [facility] [address] [place] [address] Phone Care Team Providers Care Catering Administrative Assistant Name Role Phone Unknown, Unknown Primary Care Provider Moises pascual Encounter Details Date Type Department Care Team (Late st Contact Info) Description 04/21/2018 Ancillary Orders [facility] [address] [place] [address] [place] [address] Jami Rodriguez PA [address] [place] [address] [email or web address] Social History Tobacco Use Types Packs/Day Years Used Date Smoking Tobacco: Never Assessed Comments Unknown Sex and Gender Information Value Date Recorded Sex Assigned at Female 01/22/2024 12:49 PM EST Legal Sex Female 11:45 AM EDT Gender Identity Female 01/22/2024 12:49 PM EST Sexual Orientation Not on file documented as of this encounter Plan of Treatment Not on file documented as of this encounter Results * Holter Monitor 24 Hours (04/21/2018 2:58 PM EST) Anatomical Region Laterality Modality Heart Other Narrative 04/21/2018 3:16 PM EST 24-hour monitor: Baseline rhythm is sinus with a minimum heart rate of 56 maximum 133 average 87 bpm. Rare PACs and PVCs present. There was no diary included. There were no patient activated markers. Impression: Normal 24-hour monitor. No symptoms reported. No diary submitted. Procedure Note Don Doherty MD - 02/06/2019 24-hour monitor: Baseline rhythm is sinus with a minimum heart rate of 56maximum 133 average 87 bpm. Rare PACs and PVCs present. There was nodiary included. There were no patient activated markers. Impression: Normal 24-hour monitor. No symptoms reported. No diarysubmitted. Jami [facility] ORDERA BLES Final Result documented in this encounter Visit Diagnoses Diagnosis Palpitations Palpitations documented in this encounter Care Teams Catering Administrative Assistant Relationship Specialty Start Date End Date Unknown, Unknown, PCP - General 03/17/18 documented as of this encounter Additional Source Comments The information contained in this document represents components of the legal health record. It is not the complete legal health record.[facility]
--- OUTSIDE RECORDS SUMMARY | 2024-12-07 10:13 | XMS_ITS | Clinical Summary ---
Author Organization [address] [place] [address] Address [address] [place] [address] Phone Care Team Providers Care Mails Supervisor Name Role Phone Gretchen Butterfield MD Primary Care Provider Allergies Active Allergy Reactions Criticality Noted Date Comments Enoxaparin Headache,Wheezing 08/01/2021 Sulfa (Sulfonamide Antibiotics) Headache,Wheezing 08/01/2021 Medications cholecalciferol (VITAMIN D-3) 50 mcg (2,000 unit) tablet Take 1 tablet (2,000 Units total) by mouth 1 (one) time each day. 04/20/19 Active UNABLE TO FIND Ondansetron 4 MG FILM Take 4 mg by mouth every 8 hours as needed (nausea). 12/14/19 Active simethicone (MYLICON) 80 mg chewable tablet Take 1 Tablet by mouth every 6 hours as needed for Flatulence. 12/14/19 Active WHEAT DEXTRIN ORAL Take 4 g by mouth daily. 10/30/19 22 Active umeclidinium (Incruse Ellipta) 62.5 mcg/actuation inhalation Inhale 1 puff by mouth 1 (one) time each day. 09/09/19 19 Active medical supply, miscellaneous (MISCELLANEOUS MEDICAL SUPPLY [...] mg capsule Take by mouth. Activ e cyanocobalamin, vitamin B-12, 1,000 mcg tablet, sublingualIndicat ions:Postgastrect paco malabsorption Place 1 tablet under the tongue 1 (one) time each day. 90 tablet 11/24/19 25 025 Active ergocalciferol (VITAMIN D-2) 1,250 mcg (50,000 unit) capsuleIndication s:Postgastrectomy malabsorption,Vit montana D deficiency Take 1 capsule (50,000 Units total) by mouth 1 (one) time per week for 8 doses. 8 each 11/24/19 25 025 Active ferrous sulfate 325 mg (65 mg elemental iron) tabletIndications :Postgastrectomy malabsorption Take 1 tablet (325 mg total) by mouth 3 (three) times a day. 90 each 1 11/24/19 25 025 Active vitamin A 3,000 mcg (10,000 unit) tabletIndications :Postoperative intestinal malabsorption Take 1 tablet (10,000 Units total) by mouth 1 (one) time each day. 30 tablet 12/01/19 25 025 Active ferrous sulfate 325 mg (65 mg elemental iron) tablet Take 1 Tablet by mouth 3 times daily. 03/28/19 23 025 Discontin ued(Reord er) Active Problems Problem Noted Date Diagnosed Date Class 1 obesity due to exces s calories with body mass index (BMI) of 33.0 to 33.9 in adult 02/16/2024 Intestinal malabsorption following gastrectomy 0 10/06/2017 Depression 01/16/2017 Diabetes mellitus type 2, un complicated ([facility] V24, [facility] V28) 01/16/2017 Overview (02/16/2024): 05/2017 no medications Hyperlipidemia 01/16/2017 Hypertension 01/16/2017 Migraine 01/16/2017 Dysphagia 12/31/2016 Acid reflux disease 12/31/2016 Asthma 10/30/2016 Obstructive sleep apnea syndrome 10/30/2016 Seasonal allergic rhinitis 10/30/2016 Asthma-chronic obstructive p ulmonary disease overlap syndrome ([facility] V24, [facility] V28) 09/17/2016 Hiatal hernia 09/17/2016 Thoracic back pain 05/22/2016 Encounters Date Type Department Care Team Description 11/22/2024 9:45 AM EDT Office Visit Bariatric Surgery - [place] [address] [facility] [address] [place] [address] Leticia Cerna MD Hiatal hernia (Primary Dx); Postoperative intestinal malabsorption 10/24/2024 9:43 AM EDT - 10/24/2024 11:59 PM EDT Hospital Encounter Xray [address] [place] [id number] Class 2 severe obesity due to excess calories with serious comorbidity and body mass index (BMI) of 36.0 to 36.9 in adult ([facility] V24, [facility] V28) Discharge Disposition: Home or Self Care from Last 3 Months Surgical History Surgery Date Site/Laterality Comments SECTION PROCEDURE: HISTORICAL DELIVERY BACK SURGERY PROCEDURE: HISTORICAL BACK SURGERY BARIATRIC SURGERY 06/19/2017 PROCEDURE: WV LAPS GSTRC RSTRICTIV PX LONGITUDINAL GASTRECTOMY OTHER SURGICAL HISTORY 06/19/2017 PROCEDURE: WV LAPS RPR PARAESPHGL HRNA INCL FUNDPLSTY W/O MESH HYSTERECTOMY PROCEDURE: HISTORICAL HYSTERECTOMY ANKLE SURGERY Bilateral PROCEDURE: HISTORICAL ANKLE SURGERY; COMMENT: arthroscopy w/debridement of ankle ligament CARPAL TUNNEL RELEASE Bilateral PROCEDURE: HISTORICAL CARPAL TUNNEL REL ELBOW SURGERY Bilateral PROCEDURE: HISTORICAL ELBOW SURGERY; COMMENT: ulnar nerve release Medical History Medical History Date Comments Diabetes mellitus type 2, uncomplicated ([facility] V24, [facility] V28) 01/16/2017 DX:Diabetes mellitus type 2, uncomplicated ([facility]); COMMENT: 05/2017 no medications Hypertension 01/16/2017 DX:Hypertension Depression 01/16/2017 DX:Depression Hyperlipidemia 01/16/2017 DX:Hyperlipidemi a Migraine 01/16/2017 DX:Migraine History of bariatric surgery 12/02/2017 DX: History of bariatric surgery; COMMENT: 06/2017 sleeve Asthma-chronic obstructive p ulmonary disease overlap syndrome (CMS/HCC V24, CMS/HCC V28) 09/17/2016 DX:Asthma-chronic obstructiv e pulmonary disease overlap syndrome (HCC) Thoracic back [...] Sign Reading Time Taken Comments Blood Pressure 102/70 11/22/2024 9:52 AM EDT Pulse 73 11/22/2024 9:52 AM EDT Temperature 36.6 C (97.8 F) 11/22/2024 9:52 AM EDT Respiratory Rate - - Oxygen Saturation - - Inhaled Oxygen Concentration - - Weight 79.8 kg (176 lb) 11/22/2024 9:52 AM EDT Height 162.6 cm (5' 4 ) 11/22/2024 9:52 AM EDT Body Mass Index 30.21 11/22/2024 9:52 AM EDT Plan of Treatment Health Maintenance Due Date [...] Diabetes: Annual Urine Albumin-Creatinine Ratio (uACR) 02/28/2022 Hypertension/CHF/CAD Annual BMP Blood Test 02/28/2022 08/14/2020 Depression Screening 03/16/2024 COVID-19 Vaccine ( season) 2024 Influenza Vaccine (#1) 2024 , 02/18/2022, 01/17/2021, Additional history exists Diabetes: Blood Sugar Control Test (HGBA1C) 05/22/2025 11/22/2024, 08/14/2020 Cholesterol Screening (Lipid Panel) 08/14/2025 08/14/2020 Colorectal Cancer Screening: FIT-DNA (Cologuard) 09/21/2026 09/22/2023, 09/22/2023 DTaP,Tdap,and Td Vaccines (6 - Td or Tdap) 09/07/2033 09/08/2023, 10/14/2011, 08/07/2010, Additional history exists RSV Immunization Adult Patients (1 - 1-dose 75+ series) 2044 MMR Vaccines Aged Out 11/22/1999, 03/13/1999 No [...] Procedure Name Priority Date/Time Associated Diagnosis Comments HEMOGLOBIN A1C Routine 11/22/2024 10:20 AM EDT Class 2 severe obesity due to excess calories with serious comorbidity and body mass index (BMI) of 36.0 to 36.9 in adult ([facility] V24, [facility] V28) ALBUMIN Routine 11/22/2024 10:20 AM EDT Postoperative intestinal malabsorption CALCIUM Routine 11/22/2024 10:20 AM EDT Postoperative intestinal malabsorption FOLATE Routine 11/22/2024 10:20 AM EDT Postoperative intestinal malabsorption IRON AND TIBC Routine 11/22/2024 10:20 AM EDT Postoperative intestinal malabsorption VITAMIN A Routine 11/22/2024 10:20 AM EDT Postoperative intestinal malabsorption VITAMIN B1 Routine 11/22/2024 10:20 AM EDT Postoperative intestinal malabsorption VITAMIN B12 Routine 11/22/2024 10:20 AM EDT Postoperative intestinal malabsorption VITAMIN D 25 HYDROXY Routine 11/22/2024 10:20 AM EDT Postoperative intestinal malabsorption ZINC Routine 11/22/2024 10:20 AM EDT Postoperative intestinal malabsorption XR UGI W SINGLE CONTRAST Routine 10/24/2024 10:18 AM EDT Class 2 severe obesity due to excess calories with serious comorbidity and body mass index (BMI) of 36.0 to 36.9 in adult (CMS/[facility] V24, [facility] V28) HM ANNUAL BMP BLOOD TEST Routine 08/14/2020 LIPID PANEL Routine 08/14/2020 from Last 3 Months or Most Recently Relevant to Health Maintenance Results * (ABNORMAL) Iron and TIBC (11/22/2024 10:20 AM EDT) Iron 26(L) 40 - 150 mcg/dL LAB CHEMISTRY METHOD 11/22/2024 3:55 PM EDT [facility] TIBC 343 250 - 450 mcg/dL LAB CHEMISTRY METHOD 11/22/2024 3:55 PM EDT [facility] Iron Saturation 8(L) 15 - 50 % LAB CHEMISTRY METHOD 11/22/2024 3:55 PM EDT [facility] Blood Venous blood specimen / Unknown Venipuncture / Unknown 11/22/2024 10:20 AM EDT 11/22/2024 10:20 AM EDT us Leticia Cerna MD LAB BLOOD ORDERABLES Final R esult [facility] [address] [place] [address], [place] [phone] * Zinc (11/22/2024 10:20 AM EDT) Zinc 61 60 - 130 ug/dL 11/25/2024 10:25 AM EDT [facility] Comment: Elevated results may be due to sample collected in a non-certified trace element-free tube. This test was developed and the performance characteristics determined by [facility]. It has not been cleared or approved by the FDA. The laboratory is regulated under CLIA as qualified to perform high-complexity testing. This test is used for patient testing purposes. It should not be regarded as investigational or for research. Test performed at [facility], [address], [place] [address] Christiana Gee MD, PhD - Sales And In Home Delivery Specialist Blood Venous blood specimen / Unknown Venipuncture / Unknown 11/22/2024 10:20 AM EDT 11/22/2024 10:20 AM EDT us Leticia Cerna MD LAB BLOOD ORDERABLES Final R esult [facility] [address] [place] [address] * (ABNORMAL) Vitamin A (11/22/2024 10:20 AM EDT) Pathologist [facility] Vitamin A 24(L) 38 - 106 ug/dL 11/28/2024 6:[address] [facility] Comment: This test was developed and the performance characteristics determined by [facility]. It has not been cleared or approved by the FDA. The laboratory is regulated under CLIA as qualified to perform high-complexity testing. This test is used for patient testing purposes. It should not be regarded as investigational or for research. Test performed at [facility], [address] , [place] [address] Christiana Gee MD, PhD - Sales And In Home Delivery Specialist Blood Venous blood specimen / Unknown Venipuncture / Unknown 11/22/2024 10:20 AM EDT 11/22/2024 10:20 AM EDT us Leticia Cerna MD LAB BLOOD ORDERABLES Final R esult Performing Organization Address [facility] Co de Phone Number [facility] [address] [place] [address] * (ABNORMAL) Vitamin D 25 hydroxy (11/22/2024 10:20 AM EDT) Pathologist [facility] Vit D, 25-Hydroxy 21.7(L) 30.0 - 80.0 ng/mL LAB CHEMISTRY METHOD 11/22/2024 4:32 PM EDT [facility] Blood Venous blood specimen / Unknown Venipuncture / Unknown 11/22/2024 10:20 AM EDT 11/22/2024 10:20 AM EDT us Leticia Cerna MD LAB BLOOD ORDERABLES Final R esult [facility] [address] [place] [address], [place] [phone] * Vitamin B1 (11/22/2024 10:20 AM EDT) [facility] Vitamin B1 Whole Blood 40 38 - 122 ug/L 11/28/2024 7:[address] [facility] Comment: This test was developed and the performance characteristics determined by [facility]. It has not been cleared or approved by the FDA. The laboratory is regulated under CLIA as qualified to perform high-complexity testing. This test is used for patient testing purposes. It should not be regarded as investigational or for research. Test performed at [facility], [address] , [place] [address] Christiana Gee MD, PhD - Sales And In [employer] Delivery Specialist Blood Venous blood specimen / Unknown Venipuncture / Unknown 11/22/2024 10:20 AM EDT 11/22/2024 10:20 AM EDT us Leticia Cerna MD LAB BLOOD ORDERABLES Final R esult Performing Organization Address [facility]/ZIP Co de Phone Number [facility] [address] [place] [address] * Hemoglobin A1c (11/22/2024 10:20 AM EDT) [facility] Hemoglobin A1C 5.3 <6.5 % LAB CHEMISTRY METHOD 11/22/2024 5:36 PM EDT [facility] Mean Bld Glu Estim. 105 mg/dL LAB CHEMISTRY METHOD 11/22/2024 5:36 PM EDT [facility] Blood Venous blood specimen / Unknown Venipuncture / Unknown 11/22/2024 10:20 AM EDT 11/22/2024 10:20 AM EDT Leticia Cerna MD LAB BLOOD ORDERABLES Final R esult [facility] [address] [place] [address], [place] [phone] * Folate (11/22/2024 10:20 AM EDT) [facility] Folate 7.6 2.8 - 17.0 ng/ml LAB CHEMISTRY METHOD 11/22/2024 4:17 PM EDT [facility] Blood Venous blood specimen / Unknown Venipuncture / Unknown 11/22/2024 10:20 AM EDT 11/22/2024 10:20 AM EDT us Leticia Cerna MD LAB BLOOD ORDERABLES Final R esult [facility] [address] [place] [address], [place] [phone] * (ABNORMAL) Vitamin B12 (11/22/2024 10:20 AM EDT) [facility] Vitamin B-12 132(L) 250 - 900 pcg/mL LAB CHEMISTRY METHOD 11/22/2024 4:17 PM EDT [facility] Blood Venous blood specimen / Unknown Venipuncture / Unknown 11/22/2024 10:20 AM EDT 11/22/2024 10:20 AM EDT us Leticia Cerna MD LAB BLOOD ORDERABLES Final R esult [facility] [address] [place] [address], [place] [phone] * Calcium (11/22/2024 10:20 AM EDT) [facility] Calcium 9.0 8.5 - 10.5 mg/dL LAB CHEMISTRY METHOD 11/22/2024 3:55 PM EDT [facility] Blood Venous blood specimen / Unknown Venipuncture / Unknown 11/22/2024 10:20 AM EDT 11/22/2024 10:20 AM EDT Leticia Cerna MD LAB BLOOD ORDERABLES Final R esult Performing Organization Address City/[facility]/ZIP Co de Phone Number [facility] [address] [place] [address], [place] [phone] * Albumin (11/22/2024 10:20 AM EDT) Albumin 3.5 3.2 - 5.0 g/dL LAB CHEMISTRY METHOD 11/22/2024 3:55 PM EDT [facility] Blood Venous blood specimen / Unknown Venipuncture / Unknown 11/22/2024 10:20 AM EDT 11/22/2024 10:20 AM EDT Leticia Cerna MD LAB BLOOD ORDERABLES Final R esult Performing Organization Address City/[facility]/ZIP Co de Phone Number [facility] [address] [place] [address], [place] [phone] * XR UGI w Single Contrast (10/24/2024 10:18 AM EDT) Anatomical Region Laterality Modality Body Radiographic Lana ging 10/24/2024 10:4 0 AM EDT Impressions 10/24/2024 2:47 PM EDT Unremarkable single contrast upper GI status post gastric bypass without evidence of stenosis or hernia. No significant interval change when compared to prior imaging from December 28, 2022. -------- FINAL REPORT -------- Dictated By: Bobbi Church Dictated Date: 10/24/2024 10:40 ET Assigned Physician: Mehdi Raman Reviewed and Electronically Signed By: Mehdi Raman Signed Date: 10/24/2024 14:47 ET Workstation ID: [id number] Transcribed By: Self Edit Transcribed Date: 10/24/2024 11:03 ET Resident/PA/MANAGER REPORTING: Bobbi Church Narrative 10/24/2024 2:47 PM EDT FINDINGS: Single contrast UGI performed. COMPARISON: Upper GI imaging December 26, 2022 HISTORY: Patient is a 54-year-old female with history of gastric bypass in 2019, vomiting. UNDERWRITING SERVICE REPRESENTATIVE radiographs: Consulting Technical Manager AP radiograph of the abdomen obtained. Bowel gas pattern is nonobstructive. Visualized lung bases appear clear. Surgical clips and suture chain noted to the left upper quadrant. Disc prostheses at the level of L4-5. FINDINGS: Thin barium was administered orally under fluoroscopic control. Esophagus: Normal distensibility, motility and mucosal pattern. There is no evidence of obstruction or significant hiatal hernia. Stomach: Gastric anatomy is consistent with history of bypass. Widely patent gastrojejunal anastomosis with free flow of contrast into the jejunum. Visualization of proximal small bowel is within normal limits. Gastroesophageal reflux: Not visualized Air Kerma: 23.02 mGy Procedure Note Mehdi Raman MD - 10/24/2024 FINDINGS: Single contrast UGI performed. COMPARISON: Upper GI imaging December 26, 2022 HISTORY: Patient is a 54-year-old female with history of gastric bypass [id number], vomiting. UNDERWRITING SERVICE REPRESENTATIVE radiographs: Consulting Technical Manager AP radiograph of the abdomen obtained. Bowel gaspattern is nonobstructive. Visualized lung bases appear clear. Surgicalclips and suture chain noted to the left upper quadrant. Disc prosthesesat the level of L4-5. FINDINGS: Thin barium was administered orally under fluoroscopic control. Esophagus: Normal distensibility, motility and mucosal pattern. There isno evidence of obstruction or significant hiatal hernia. Stomach: Gastric anatomy is consistent with history of bypass. Widelypatent gastrojejunal anastomosis with free flow of contrast into thejejunum. Visualization of proximal small bowel is within normal limits. Gastroesophageal reflux: Not visualized Air Kerma: 23.02 mGy IMPRESSION: Unremarkable single contrast upper GI status post gastric bypass withoutevidence of stenosis or hernia. No significant interval change whencompared to prior imaging from December 28, 2022. -------- FINAL REPORT -------- Dictated By: Bobbi Church Dictated Date: 10/24/2024 10:40 ET Assigned Physician: Mehdi Raman Reviewed and Electronically Signed By: Mehdi Raman Signed Date: 10/24/2024 14:47 ET Workstation ID: [id number] Transcribed By: Self Edit Transcribed Date: 10/24/2024 11:03 ET Resident/PA/MANAGER REPORTING: Bobbi Church Leticia Cerna MD IMG FLUOROSCOPY PROCEDURES F inal Result * Annual BMP Blood Test (08/14/2020) Annual BMP Blood Test abstracted Historical Provider HEALTH MAINTENANCE Final Result * (ABNORMAL) Lipid panel (08/14/2020) LDL/HDL [...] [employer] [place] [employer] Care Teams Mails Supervisor Relationship Specialty Start Date End Date Gretchen Butterfield MD [address] [place] [phone] PCP - General 10/31/19
--- OUTSIDE RECORDS SUMMARY | 2024-12-07 10:13 | XMS_ITS | Encounter Summary ---
Author Organization [facility] Address [address] [place] [address] Phone Care Team Providers Care Deputy Chief Counsel Name Role Phone Unknown, Unknown Primary Care Provider Moises pascual Encounter Details Date Type Department Care Team (Late st Contact Info) Description 03/02/2019 Ancillary Orders [facility] [address] [place] [address] [place] [address] Jami Rodriguez PA [address] [place] [address] [email or web address] Palpitations Social History Tobacco Use Types Packs/Day [...] of this encounter Results * Holter Monitor 48 Hours (03/02/2019 11:04 AM EST) Anatomical Region Laterality Modality Heart Other Narrative 03/02/2019 5:12 PM EST 48-hour monitor: The baseline rhythm is sinus with a minimum heart rate of 46, maximum 146, average 70 bpm. Rare PACs and PVCs present. There is no diary submitted. There are no patient event markers. Impression: Normal 48-hour monitor. No diary submitted. Procedure Note Don Doherty MD - 03/02/2019 48-hour monitor: The baseline rhythm is sinus with a minimum heart rate of46, maximum 146, average 70 bpm. Rare PACs and PVCs present. There is nodiary submitted. There are no patient event markers. Impression: Normal 48-hour monitor. No diary submitted. Jami [facility] Final Result documented in this encounter Visit Diagnoses Diagnosis Palpitations Palpitations documented in this encounter Care Teams Deputy Chief Counsel Relationship Specialty Start Date End Date Unknown, Unknown, PCP - General 03/17/18 documented as of this encounter Additional Source Comments The information contained in this document represents components of the legal health record. It is not the complete legal health record.[facility]
== END 2024-12-07 09:51 | disposition home or self-care (01) ==
LOC: HO.RHES 08:51
PROVIDERS: PCP Internal Medicine; Visit Provider Internal Medicine Rheumatology
DX: M05.79 Rheumatoid arthritis with rheumatoid factor of multiple sites without organ or systems involvement (principal)
CPT/HCPCS: 99214; G2211